=== PATIENT | male | born 1965 | race Caucasian/White ===

== ENCOUNTER 2023-07-27 15:40 | Outpatient (OUT) | payer MEDICARE, SELFPAY ==
[2023-07-27 16:54] LABS: Anion Gap 11.5; BUN Creatinine Ratio 3.9; Calcium 8.4 mg/dL (8.5-10.1); Carbon Dioxide 31.6 mmol/L (21.0-32.0); Chloride 105 mmol/L (98-107); Estimated GFR (African America >60 (>=60); Estimated GFR (Non-African Ame >60 (>=60); Glucose 114 mg/dL (74-106); Potassium 3.1 mmol/L (3.5-5.1); Sodium 145 mmol/L (136-145)
== END 2023-07-27 15:41 | disposition home or self-care (01) ==
LOC: LAB 15:42
PROVIDERS: PCP Family Medicine; Visit Provider Internal Medicine
DX: I50.20 Unspecified systolic (congestive) heart failure (principal)
CPT/HCPCS: 36415; 80048; 83880

== ENCOUNTER 2024-06-17 12:41 | Outpatient (OUT) | payer MEDICARE, SELFPAY | END 2024-06-17 12:42 | disposition home or self-care (01) | LOC: RAD 12:44 | PROVIDERS: PCP Family Medicine; Visit Provider Family Medicine | DX: I82.402 Acute embolism and thrombosis of unspecified deep veins of left lower extremity (principal); R60.0 Localized edema | CPT/HCPCS: 93971 ==

== ENCOUNTER 2024-07-26 16:05 | Emergency (ER) | payer MEDICARE, SELFPAY ==
[2024-07-26 16:10] VITALS: BP 140/86; PULSE 113; TEMP 37.1; O2SAT 97; BMI 25.0
--- OUTSIDE RECORDS SUMMARY | 2024-07-26 16:11 | XMS_ITS | CCD ---
Author Organization [facility] CliniSymi Care Team Providers Care Cds Sales Advisor Name Role Phone MARIA D FERNANDES Unavailable Unavailable HOUSE, GORAN Unavailable Unavailable DAHIANA, MARIA D Unavailable Unavailable HOUSE, GORAN Unavailable Unavailable VANESSA, NAIM Z Unavailable Unavailable VANESSA, NAIM Z Unavailable Unavailable HOUSE, GORAN Unavailable Unavailable House, Goran Kovacs Unavailable Unavailable Unavailable Unavailable Unavailable HOUSE, DR CHENG Primary Care Unavailable HOUSE, DR CHENG Admitting Unavailable HOUSE, DR CHENG Attending Unavailable HOUSE, DR CHENG Consulting Unavailable HOUSE, DR CHENG Admitting Unavailable HOUSE, DR CHENG Attending Unavailable HOUSE, DR CHENG Consulting Unavailable HOUSE, DR CHENG Primary Care Unavailable HOUSE, DR CHENG Admitting Unavailable HOUSE, DR CHENG Attending Unavailable HOUSE, DR CHENG Primary Care Unavailable CHRIS MEHTA Attending Unavailable CHRIS MEHTA Consulting Unavailable HOUSE, DR CHENG Primary Care Unavailable CHRIS MEHTA Admitting Unavailable YUMIKO HEWITT Consulting Unavailable BROOKE HAMPTON Consulting Unavailable CHRIS MEHTA Admitting Unavailable HOUSE, DR CHENG Primary Care Unavailable CHRIS MEHTA Attending Unavailable HOUSE, DR CHENG Admitting Unavailable HOUSE, DR CHENG Attending Unavailable HOUSE, DR CHENG Consulting Unavailable HOUSE, DR CHENG Primary Care Unavailable PREET, DR MAYI Elder Consulting Unavailable House, Dr. Goran Inman Primary Care Unava ilVeronica Webster Referring Unavailable Veronica Vilchis Attending Unavailable YUMIKO VILLEGAS Attending Unavailable YUMIKO VILLEGAS Referring Unavailable GORAN FOFANA Primary Care Physician [phone] MD Jostin Shah Consulting Unavailable Bob Wyman Attending UnavailBob Atkinson Referring UnavailBob Atkinson Admitting Unavaila Jostin Howe Consulting Unavailable Jostin Shah Consulting Unavailable Bob Wyman Admitting UnavailBob Atkinson Attending Unavaila Bob Parrish Referring Unavaila GORAN Gupta Referring Unavailable Bob Wyman Attending Unavaila maik REFERRAL, SELF Referring Unavailable Bob Wyman Admitting Unavaila Bob Parrish Attending Unavaila Ignacio Ramírez Admitting Unavailable Sae, Ignacio Vanegas Attending Unavailable NONE, XXXX Referring Unavailable HOUSE, GORAN P Primary Care Unavailable HOUSE, DO GORAN P Admitting Unavailable HOUSE, DO GORAN P Attending Unavailable HOUSE, DO GORAN P Attending Unavailable HOUSE, GORAN P Primary Care Unavailable HOUSE, GORAN P Primary Care Unavailable HOUSE, DO GORAN P Attending Unavailable Allergies Allergy Classification Reported Allergen(s) Allergy Type Date of Onset Reaction(s) Facility (12 sources) moxifloxacin; Translations: [Avelox TABS] Drug Allergy Eruption of skin (disorder) [facility] (3 sources) moxifloxacin; Translations: [Avelox] Drug Allergy [facility] Rep[facility] Medications Current Medications Medication Drug Class(es) Dates Sig (Normalized) Sig (Original) acetaminophen 325 mg / HYDROcodone bitartrate 5 mg oral tablet (12 sources) Opioid Agonist Start: 02-18-2019 take 1 tablet by mouth every four hours as needed for pain and pain, then take 1-2 tablets by mouth every four to six hours as needed for pain and pain [place] 325 mg-5 mg oral tablet 1 tab(s), Oral, q4hr for pain, Refill(s) 0, 1 to 2 tabs every 4 to 6 hours as needed for pain, Pain Start Date: 02/18/19 Status: Ordered take 1-2 tablets by mouth every eight hours as needed for pain HYDROcodone-Acetaminophen 5-325 MG Oral Tablet take 1-2 tablets everu 8 hours PRN pain Quantity: 0 Refills: 0 Ordered: 17-Dec-2020 DO Active [id number] actuat albuterol 0.09 mg/actuat metered dose inhaler (12 sources) beta2-Adrenergic Agonist Start: 02-18-2019 take 1 puff(s) by inhalation four times daily Pro-Air HFA CFC free 90 mcg/inh MDI 1 puff(s), Inhalation, QID Start Date: 02/18/19 Status: Ordered take 1-2 puff(s) by inhalation every four to six hours as needed ProAir HFA 108 (90 Base) MCG/ACT AERS INHALE 1-2 PUFFS EVERY 4-6 HOURS NEEDED AND DIRECTED. Quantity: 0 Refills: 0 Ordered: 17-Dec-2020 DO Active aspirin 81 mg oral tablet (16 sources) Platelet Aggregation Inhibitor, Nonsteroidal Anti-inflammatory Drug Start: 02-18-2019 take 1 tablet by mouth once daily aspirin 81 mg oral tablet 81 mg = 1 tab(s), Oral, Daily Start Date: 02/18/19 Status: Ordered Aspir-Low 81 MG TBEC Quantity: 0 Refills: 0 Ordered: 17-Dec-2020 DO Active atorvastatin 40 mg oral tablet (12 sources) HMG-CoA Reductase Inhibitor Start: 02-18-2019 take 1 tablet by mouth once daily atorvastatin 40 mg Tab 40 mg = 1 tab(s), Oral, Daily Start Date: 02/18/19 Status: Ordered take 1 tablet by mouth once veronica y Atorvastatin Calcium 80 MG Oral Tablet TAKE 1 TABLET DAILY. Quantity: 90 Refills: 3 Ordered: 24-Apr-2022 Veronica Vilchis MD Active clopidogrel 75 mg oral tablet (11 sources) P2Y12 Platelet Inhibitor Start: 07-27-2023 take 1 tablet by mouth once daily clopidogrel 75 mg Tab 75 mg = 1 tab(s), Oral, Daily, # 30 tab(s), Refills(s) 0 Start Date: 07/27/23 Status: Ordered Start: 12-22-2020 take 1 tablet by caitlin once daily Clopidogrel Bisulfate 75 MG Oral Tablet TAKE 1 TABLET EVERY DAY Quantity: 90 Refills: 3 Ordered: 24-Apr-2022 Veronica Vilchis MD Start : 22-Dec-2020 Active ferrous sulfate 325 mg oral tablet (6 sources) Start: 07-27-2023 take 1 tablet by mouth twice daily ferrous sulfate 325 mg Tab 325 mg = 1 tab(s), Oral, BID, # 60 tab(s), Refills(s) 0 Start Date: 07/27/23 Status: Ordered take 1 tablet by mouth once veronica y Ferrous Sulfate 324 MG Oral Tablet Delayed Release Take 1 tablet daily Quantity: 0 Refills: 0 Ordered: 24-Apr-2022 DO Active folic acid 1 mg oral tablet (6 sources) Start: 07-27-2023 take 1 tablet by mouth once daily folic acid 1 mg Tab TAKE 1 TABLET BY MOUTH EVERY DAY Start Date: 07/27/23 Status: Ordered take 1 tablet by mouth once veronica y Folic Acid 1 MG Oral Tablet TAKE 1 TABLET DAILY. Quantity: 0 Refills: 0 Ordered: 24-Apr-2022 DO Active gabapentin 300 mg oral capsule (4 sources) Anti-epileptic Agent Start: 02-18-2019 take 1 capsule by mouth twice daily gabapentin 300 mg Cap 300 mg = 1 cap(s), Oral, BID Start Date: 02/18/19 Status: Ordered memantine hydrochloride 5 mg oral tablet (6 sources) D-txeogm-P-aspartate Receptor Antagonist Start: 07-27-2023 take 5 mg by mouth twice daily Namenda 5 mg, Oral, BID, Refills(s) 0 Start Date: 07/27/23 Status: Ordered take 1 tablet by mouth once veronica y Namenda 5 MG Oral Tablet TAKE 1 TABLET ONCE DAILY. Quantity: 0 Refills: 0 Ordered: 24-Apr-2022 DO Active 24 hr metoprolol succinate 25 mg extended release oral tablet (4 sources) beta-Adrenergic Carolyn Start: 02-18-2019 take 1 tablet by mouth once daily metoprolol 25 mg ER Tab 25 mg = 1 tab(s), Oral, Daily, Refills(s) 0 Start Date: 02/18/19 Status: Ordered Nitro 0.4 mg Tab (4 sources) Start: 02-18-2019 Nitro 0.4 mg Tab = 1 tab(s), SubLingual, q5min, PRN Chest pain Start Date: 02/18/19 Status: Ordered PARoxetine hydrochloride 20 mg oral tablet (10 sources) Serotonin Reuptake Inhibitor Start: 02-18-2019 take 1 tablet by mouth once daily paroxetine 20 mg Tab 20 mg = 1 tab(s), Oral, Daily Start Date: 02/18/19 Status: Ordered QUEtiapine 100 mg oral tablet (12 sources) Atypical Antipsychotic Start: 02-18-2019 take 1 tablet by mouth once daily SEROquel 100 mg Tab 100 mg = 1 tab(s), Oral, Daily Start Date: 02/18/19 Status: Ordered Vitamin B1 100 mg Tab (4 sources) Start: 07-27-2023 take 2 tablets by mouth twice daily Vitamin B1 100 mg Tab TAKE 2 TABLETS BY MOUTH TWICE A DAY Start Date: 07/27/23 Status: Ordered Completed/Discontinued Medications Medication Drug Class(es) Dates Sig (Normalized) Sig (Original) carvedilol 6.25 mg oral tablet (6 sources) alpha-Adrenergic Carolyn, beta-Adrenergic Carolyn Start: 11-29-2020 take 1 tablet by mouth twice daily at mealtime Carvedilol 6.25 MG Oral Tablet TAKE 1 TABLET BY MOUTH TWICE A DAY WITH MEALS Quantity: 180 Refills: 3 Ordered: 29-Nov-2020 Maria D Fernandes DO Start : 29-Nov-2020 Active [facility]S VITAMIN C 500 MG TABLET (4 sources) Start: 07-27-2023 take 1 tablet by mouth twice daily CVS VITAMIN C 500 MG TABLET CVS VITAMIN C 500 MG TABLET, TAKE 1 TABLET BY MOUTH TWICE A DAY Start Date: 07/27/23 Status: Ordered levothyroxine (12 sources) l-Thyroxine Start: 02-18-2019 take 1 tablet by mouth once daily Synthroid 75 mcg (0.075 mg) Tab 75 microgram = 1 tab(s), Oral, Daily Start Date: 02/18/19 Status: Ordered take 1 tablet by mouth once veronica y Synthroid 75 MCG Oral Tablet TAKE 1 TABLET DAILY. Quantity: 0 Refills: 0 Ordered: 17-Dec-2020 DO Active losartan potassium 25 mg oral tablet (8 sources) Angiotensin 2 Receptor Carolyn Start: 12-22-2020 take 0.5 tablet by mouth once daily Losartan Potassium 25 MG Oral Tablet TAKE 1/2 TABLET DAILY. Quantity: 15 Refills: 11 Ordered: 24-Dec-2020 Maria D Fernandes DO Start : 22-Dec-2020 Active new start nitroglycerin 0.4 mg sublingual tablet (8 sources) Nitrate Vasodilator Nitroglycerin 0.4 MG Sublingual Tablet Sublingual PLACE 1 TABLET UNDER THE TONGUE EVERY 5 MINUTES FOR UP TO 3 DOSES NEEDED FOR CHEST PAIN.CALL 911 IF PAIN PERSISTS. Quantity: 0 Refills: 0 Ordered: 17-Dec-2020 DO Active pantoprazole 40 mg delayed release oral tablet (2 sources) Proton Pump Inhibitor take 1 tablet by mouth once daily Protonix 40 MG Oral Tablet Delayed Release TAKE 1 TABLET DAILY. Quantity: 0 Refills: 0 Ordered: 24-Apr-2022 DO Active potassium chloride 20 meq extended release oral tablet (1 source) Start: 09-06-2023 take 1 tablet by mouth once daily potassium chloride 20 mEq ER Tab 20 mEq = 1 tab(s), Oral, Daily, # 90 tab(s), Refills(s) 0, Pharmacy: [facility]/pharmacy #[id number], 178, cm, 09/06/23 13:16:00 EDT, Height/Length Dosing, 81.2, kg, 09/06/23 13:16:00 EDT, Weight Dosing Start Date: 09/06/23 Status: Ordered predniSONE 5 mg oral tablet (2 sources) predniSONE 5 MG Oral Tablet TAKE 1 TABLET DIRECTED. Quantity: 0 Refills: 0 Ordered: 24-Apr-2022 DO Active thiamine 100 mg oral tablet (6 sources) take 1 tablet by mouth once daily Thiamine HCl - 100 MG Oral Tablet TAKE 1 TABLET DAILY. Quantity: 0 Refills: 0 Ordered: 17-Dec-2020 DO Active Problems Active Problems Problem Classification Problem Date Documented Date Episodic/Chronic Chronic obstructive pulmonary disease and bronchiectasis (8 sources) Chronic obstructive lung disease; Translations: [Chronic airway obstruction, not elsewhere classified] Chronic Chronic obstructive pulmonary disease and bronchiectasis (1 source) Chronic obstructive pulmonary disease and bronchiectasis Onset: 04-26-2017 Coronary atherosclerosis and other heart disease (18 sources) Atherosclerotic heart disease of [place] coronary artery without angina pectoris; Translations: [Coronary arteriosclerosis] Onset: 04-19-2017 Chronic Coronary atherosclerosis and other heart disease (8 sources) Stented coronary artery; Translations: [Percutaneous transluminal coronary angioplasty status] Episodic Coronary atherosclerosis and other heart disease (1 source) Coronary atherosclerosis and other heart disease Onset: 04-26-2017 Disorders of lipid metabolism (8 sources) Dyslipidemia; Translations: [Other and unspecified hyperlipidemia] Chronic E Codes: Fall (1 source) Fall (on) (from) unspecified stairs and steps, initial encounter; Translations: [FALL ON FROM UNS STAIRS STEPS INIT] Onset: 12-13-2021 Episodic Essential hypertension (8 sources) Essential hypertension; Translations: [Unspecified essential hypertension] Chronic Essential hypertension (1 source) Essential hypertension Onset: 04-26-2017 Fluid and electrolyte disorders (1 source) Hypokalemia; Translations: [Hypokalemia] Onset: 09-06-2023 Episodic Fracture of upper limb (1 source) Displaced fracture of proximal phalanx of left middle finger, initial encounter for closed fracture; Translations: [DSPL FX PROX PHAL LT MF INIT ALEJANDRO FX] Onset: 12-13-2021 Episodic Inflammatory conditions of male genital organs (4 sources) Abscess of scrotum 02-18-2019 Episodic Osteoarthritis (1 source) Unspecified osteoarthritis, unspecified site; Translations: [UNSPECIFIED OSTEOARTHRITIS UNS SITE] Onset: 12-19-2020 Chronic Other aftercare (1 source) 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; Translations: [USP CURRENT USE OF ASPIRIN] Onset: 12-13-2021 Episodic Other aftercare (1 source) Other senior living (current) drug therapy; Translations: [OTH USP CURRENT DRUG THERAPY] Onset: 12-13-2021 Episodic Other circulatory disease (8 sources) History of cardiomyopathy; Translations: [Other postprocedural status] Episodic Other connective tissue disease (3 sources) Pain in left hand; Translations: [PAIN IN LEFT HAND] Onset: 12-11-2021 Episodic Other endocrine disorders (4 sources) Unspecified adrenocortical insufficiency; Translations: [UNS ADRENOCORTICAL INSUFFICIENCY] Onset: 01-25-2021 Chronic Other lower respiratory disease (8 sources) Dyspnea on exertion; Translations: [Shortness of breath] Episodic Other nutritional; endocrine; and metabolic disorders (2 sources) Overweight in adulthood with body mass index of 25 or more but less than 30; Translations: [Overweight] Episodic Other screening for suspected conditions (not mental disorders or infectious disease) (9 sources) Abnormal result of other cardiovascular function study; Translations: [Cardiovascular stress test abnormal] Onset: 04-26-2017 Episodic Residual codes; unclassified (4 sources) Tobacco user 02-18-2019 Episodic Skin and subcutaneous tissue infections (4 sources) Abscess of groin 02-18-2019 Episodic Substance-related disorders (9 sources) Smoker; Translations: [Tobacco use disorder] Onset: 12-13-2021 Chronic Unclassified (1 source) Body mass index (BMI) 25.0-25.9, adult / Z68.25(ICD-9) Onset: 04-26-2017 Unclassified (2 sources) Athscl heart disease of [place] coronary artery w/o ang pctrs / I25.10(ICD-9) Onset: 04-19-2017 Unclassified (1 source) Coronary angioplasty status / Z98.61(ICD-9) Onset: 04-19-2017 Unclassified (1 source) Nicotine dependence, unspecified, uncomplicated / F17.200(ICD-9) Onset: 04-26-2017 Unclassified (2 sources) Abnormal result of other cardiovascular function study / R94.39(ICD-9) Onset: 04-23-2017 Unclassified (1 source) Overweight / E66.3(ICD-9) Onset: 04-26-2017 Unclassified (1 source) Pure hypercholesterolemia, unspecified / E78.00(ICD-9) Onset: 04-19-2017 Unclassified (1 source) Presence of coronary angioplasty implant and graft / Z95.5(ICD-9) Onset: 04-26-2017 Unclassified (1 source) 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 / Z79.82(ICD-9) Onset: 04-26-2017 Unclassified (1 source) Old myocardial infarction / I25.2(ICD-9) Onset: 04-26-2017 Unclassified (2 sources) Other forms of dyspnea / R06.09(ICD-9) Onset: 04-23-2017 Past or Other Problems Problem Classification Problem Date Documented Da te Episodic/Chronic Abdominal pain (4 sources) Unspecified abdominal pain; Translations: [UNSPECIFIED ABDOMINAL PAIN] Onset: 01-05-2021 Episodic Malaise and fatigue (4 sources) Other fatigue; Translations: [OTHER FATIGUE] Onset: 12-14-2020 Episodic Nausea and vomiting (1 source) Vomiting, unspecified; Translations: [VOMITING UNSPECIFIED] Onset: 01-15-2021 Episodic Residual codes; unclassified (4 sources) Procedure and treatment not carried out due to patient leaving prior to being seen by health care provider; Translations: [PROC AND TX NOT CARRIED OUT PT LEAVE] Onset: 12-30-2020 Episodic Unclassified (1 source) Other forms of dyspnea; Translations: [Other forms of dyspnea] Onset: 04-26-2017 Results Test Name Value Interpretation Reference Range Facility Rad - Ultrasound Reporton Rad - Ultrasound Report [id number] [facility] Consultation/Specialist Note on 09-11-2023 Consultation/Special ist Note [id number] [facility] Consultation/Special ist Note [id number] [facility]GTIFF Normal [facility] Heart and Vascular Office/Cl inic Noteon 09-08-2023 Heart and Vascular Office/Clinic Note Heart and Vascular Office/Clinic Note Chief Complaint new patient new referred for Hc of angio History of Present Illness Lemuel Rhodes presents for evaluation of left ankle swelling. He is accompanied by an adult female. The patient, a cardiac patient with a history of stent placement, presents with. His most recent consultation was a year ago at [facility]. Only his left ankle is swelling, and it becomes noticeable after prolonged periods of standing. He denies any injury to the ankle, although he recalls an incident approximately 40 years ago where he struck his ankle with an axe. He denies any (different laterality?) calf pain. His most recent stress test and echocardiogram were conducted in 2021 or 2022 at [facility]. (Dr. Fofnaa?) has ordered additional cardiac and lab tests. The patient, who has previously undergone stent implantation due to heart issues, is experiencing left ankle edema. This edema tends to become more pronounced after extended durations of being on his feet. Despite the ankle edema, he reports no injuries to the area, except for a memory of an accident about 40 years ago when he accidentally hit his ankle with an axe. He denies any (different laterality?) calf pain. His last stress test and echocardiogram examinations took place between 2021 and 2022 at [facility]. Following this, (Dr. Fofana?) has requested further cardiac and laboratory assessments. He is uncertain about having liver cirrhosis. He consumes roughly 10 alcoholic beverages each day. He notes tobacco use. Review of Systems PHQ Score Initial Depression Screen Score: 0 SCORE Constitutional: no fever, no sweats, no weakness Skin: no rash, no lesions, no bruising/petechiae ENMT: no sore throat, no congestion, no hoarseness Respiratory: no shortness of breath, no cough, no orthopnea, no wheezing Cardiovascular: no chest pain, no palpitations, no edema Gastrointestinal: no nausea, no vomiting, no diarrhea, no GI bleeding Genitourinary: no anuria/oliguria no hematuria Musculoskeletal: no back pain, no trauma Neurologic: no headache, no dizziness, no numbness, no weakness Psychiatric: no sleeping problems, no irritability, no anxiety/depression. Heme/Lymph: no bleeding tendency, no bruising tendency Allergy/Immunologic: no recurrent infections, no impaired immunity Additional ROS info: Except as noted in the above Review of Systems and in the History of Present Illness all other systems have been reviewed and are negative or noncontributory Physical Exam Vitals & Measurements HR: 94(Peripheral) BP: 132/86 SpO2: 91% HT: 70 in HT: 178 cm WT: 82.2 kg WT: 180.84 lb BMI: 25.94 General: alert, no acute distress Skin: warm, dry intact Head: atraumatic, normocephalic Neck: trachea midline, no JVD, no bruit Eye: normal conjunctiva, sclera clear ENMT: oral mucosa moist Cardiovascular: regular rate and rhythm, no murmur, normal peripheral perfusion Respiratory: lungs CTA, respirations non labored Chest wall: no deformity. Gastrointestinal: soft, non-distended, no tenderness, no guarding. Back: no tenderness, normal ROM, normal alignment. Extremities: no edema, no deformity, no trauma Neurological: oriented x 4, LOC appropriate for age, sensation equal & normal bilaterally, speech normal Psychiatric: cooperative, affect appropriate for age, normal judgement, normal psychiatric thoughts. Assessment/Plan Shortness of breath (R06.02: Shortness of breath) Edema in the left ankle. A chemical stress test, laboratory, and EKG were ordered, along with a BNP test. Additionally, an ultrasound of the leg will be performed. The patient has been advised to reduce his alcohol consumption. His laboratory shows liver cirrhosis. Follow-up The patient is scheduled for a follow-up visit in 6 weeks. ATTESTATION: Documentation services were performed after patient or guardian consented to allow [employer] to record this visit. 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 LIOR: Albert Agsam/pasted by: Obey Correia Portions of this record may have been created with voice recognition artificial intelligence software, specifically [employer], [employer] and or [employer]. Substitutions may have occurred due to the inherent limitations of voice recognition and artificial intelligence software. Follow-up No qualifying data available Problem List/Past Medical History Ongoing Abscess of left groin Scrotal wall abscess Tobacco abuse Historical No qualifying data Procedure/Surgical History Bilateral carpal tunnel syndrome, Cardiac catheter, Hip replacement. Medications aspirin 81 mg oral tablet, 81 mg= 1 tab(s), Oral, Daily atorvastatin 40 mg Tab, 40 mg= 1 tab(s), Oral, Daily clopidogrel 75 mg Tab, 75 mg= 1 tab(s), Oral, Daily CVS VITAMIN C 500 MG TABLET ferrous sulfate 325 mg Tab, 325 mg= 1 tab(s), Oral, BID folic acid 1 mg Tab gabapentin 300 mg C (more content not included)... Normal [facility] Comment on above: Result Comment: Elec tronically Signed By: Garo LOMAX, Bob Norris\.br\Date and Time Signed: 09/08/23 10:03 EDT\.br\Electronically Co-Signed By: Obey Correia\.br\Date and Time Co-Signed: 07/27/23 17:06 EDT Heart and Vascular Office/Cl inic Noteon 09-06-2023 Heart and Vascular Office/Clinic Note Heart and Vascular Office/Clinic Note Chief Complaint 6 week F/U History of Present Illness Lemuel is a 58 year old male with past medical hx of SOB and lower leg edema, prior PCI, [place]. Pt is in for 6 week fu and for test results. Pt had lab work done at [place] which showed decreased potassium at 3.1 despite the use of a diuretic, so he should start on potassium chloride for the time being to bring that number up within range. All other labs were normal including BNP. Venous US was negative for DVT for the left leg. Echo was also negative with an EF of 65-70% and a stress test that was negative for ischemia or infarction. Overall pt is doing well at this time. Pt still experiences some lower leg edema intermittently which usually occurs around mid day to evening but negative for anginal symptoms at this time. Pt is able to dc Plavix at this time due to being s/p over 1 year PCI. Pt should continue his other medications aspirin 81 mg qD, atorvastatin 40 mg qD, metoprolol 25 mg qD at this time. Patient specifically denies chest pain, palpitations, SOB at rest, KRISHNAMURTHY, orthopnea, PND, dizziness, near syncope, or syncope. NOTE FROM 07/27/23 The patient, who has previously undergone stent implantation due to heart issues, is experiencing left ankle edema. This edema tends to become more pronounced after extended durations of being on his feet. Despite the ankle edema, he reports no injuries to the area, except for a memory of an accident about 40 years ago when he accidentally hit his ankle with an axe. He denies any (different laterality?) calf pain. His last stress test and echocardiogram examinations took place between 2021 and 2022 at [facility]. Following this, (Dr. Fofana?) has requested further cardiac and laboratory assessments. Review of Systems PHQ Score Initial Depression Screen Score: 0 SCORE ROS - Provider Constitutional: no fever, no chills, no sweats, no weakness Respiratory: no shortness of breath, no cough Cardiovascular: no chest pain Neuro: no dizziness. no loss of consciousness Cardiac Diagnostics (08/24/2023 15:38 EDT NM Myocardial Spect Rest/Stress 1 Day) Interpretation Summary Negative lexiscan stress EKG test. Rest Dose: 9.4 mCi IV. Stress Dose: 28.9 mCi IV. TID 0.98 EF 73% EDV 80ml Negative nuclear stress test for ischemia or infarction. Overall low risk stress test. (08/27/2023 13:54 EDT Echo Transthoracic Complete) Interpretation Summary Left ventricular systolic function is normal. Ejection Fraction = 65-70%. Left Ventricular filling pattern is abnormal for age. No obvious regional wall motion abnormalities noted There is no pericardial effusion. [1] (08/27/2023 12:37 EDT US LE Venous Duplex Left) IMPRESSION: NO EVIDENCE OF VENOUS THROMBOSIS INVOLVING VISUALIZED DEEP VEINS OF THE LEFT LEG. [2] Physical Exam Vitals & Measurements HR: 110(Peripheral) RR: 18 BP: 120/82 SpO2: 94% HT: 70 in HT: 178 cm WT: 81.2 kg WT: 178.64 lb BMI: 25.63 General: alert, no acute distress Cardiovascular: regular rate and rhythm, no murmur normal peripheral perfusion Respiratory: Lungs CTAB, respirations non labored Extremities: Trace edema left lower extremity. Trace edema right lower extremity Neurological: oriented x 4, LOC appropriate for age, speech normal Skin: Warm, dry, intact- no rash or concerning lesions Assessment/Plan 1. Hypokalemia (E87.6: Hypokalemia) Pt lab work revealed decreased potassium at 3.1. Pt should start potassium chloride qD for 90 days. 2. CAD in [place] artery (I25.10: Atherosclerotic heart disease of [place] coronary artery without angina pectoris) Echo was also negative with an EF of 65-70% and a stress test that was negative for ischemia or infarction. Pt can dc Plvix due to s/p over 1 year from his last stent. Pt should continue his current medications aspirin 81 mg qD, atorvastatin 40 mg qD, metoprolol 25 mg qD Patient will return to clinic in 6 months for regular follow up appointment with me. Patient will call office for sooner appointment for acute concerns. IYamile, personally scribed for Ignacio Quevedo PA-C on 09/06/23 Follow-up No qualifying data available Problem List/Past Medical History Ongoing Abscess of left groin Scrotal wall abscess Tobacco abuse Historical No qualifying data Procedure/Surgical History Bilateral carpal tunnel syndrome, Cardiac catheter, Hip replacement. Medications aspirin 81 mg oral tablet, 81 mg= 1 tab(s), Oral, Daily atorvastatin 40 mg Tab, 40 mg= 1 tab(s), Oral, Daily clopidogrel 75 mg Tab, 75 mg= 1 tab(s), Oral, Daily CVS VITAMIN C 500 MG TABLET ferrous sulfate 325 mg Tab, 325 mg= 1 tab(s), Oral, BID folic acid 1 mg Tab gabapentin 300 mg Cap, 300 mg= 1 cap(s), Oral, BID metoprolol 25 mg ER Tab, 25 mg= 1 tab(s), Oral, Daily Namenda, 5 mg, Oral, BID Nitro 0.4 mg Tab, 1 tab(s), SubLingual, q5min, PRN [place] 325 mg-5 mg oral tablet, 1 tab(s), Oral, q4hr, PRN paroxetine 20 mg (more content not included)... Normal [facility] Comment on above: Result Comment: Elec tronically Signed By: Ignacio Quevedo PA-C\.br\Date and Time Signed: 09/06/23 14:36 EDT\.br\Electronically Co-Signed By: Yamile Dean\.br\Date and Time Co-Signed: 09/06/23 13:37 EDT Outside Recordson 09-03-2023 Outside Records [id number]#[id number] TGTIFF [facility] Rad - Other Radiology Report on 09-03-2023 Rad - Other Radiology Report [id number]#[id number] TGTIFF [facility] Echocardiogramon 08-31-2023 Echocardiography [id number]#[id number]/Str ess 1 Dayon 08-31-2023 NM Myocardial Spect Rest/Stress 1 Day Exam Date/Time: 08/24/2023 15:38 EDT Reason for Exam: I25.10;CAD Coronary artery disease Report [facility] [address] [place] [address] Nuclear Stress Report Name: LEMUEL RHODES Study Date: 08/24/2023 02:01 PM Patient [facility] 1965 (M/d/yyyy) Gender: Male Age: 58 yrs Ethnicity: T Reason For Study: CAD Coronary artery disease Ordering Physician: Bob Wyman Referring Physician: Bob Wyman Protocol 22255 Pharmacologic Lexiscan stress with Isotope. Study Protocol: One day rest/stress acquisition. Rest Dose Tc99m Cardiolite was administered. Rest Dose: 9.4 mCi IV. Stress Dose Stress Protocol: Lexiscan. Stress Dose: 28.9 mCi IV. Stress Parameters Normal blood pressure response. Stress Symptoms: None. ECG Rest Abnormal ECG. Normal Sinus Rhythm with non specific ST-T wave changes. Poor R wave progression. ECG Peak No significant changes from baseline. No ST-T wave changes from baseline. Arrhythmia No arrhythmias. Image Quality Rest Images: Diagnostic in quality. Stress Images: Diagnostic in quality. SPECT Perfusion Normal rest and stress perfusion. Left Ventricle Normal global and regional wall motion in all territories. Report Interpretation Summary Negative lexiscan stress EKG test. Rest Dose: 9.4 mCi IV. Stress Dose: 28.9 mCi IV. TID 0.98 EF 73% EDV 80ml Negative nuclear stress test for ischemia or infarction. Overall low risk stress test. FINAL REPORT Dictated: 08/24/2023 2:01 pm Bob Wyman MD Signed (Electronic Signature): 08/31/2023 1:47 pm Signed by: Bob Wyman MD Transcribed by: [facility] Technologist: BLANCO [facility] US LE Venous Duplex Lefton 0 08-29-2023 US LE Venous Duplex Left Exam Date/Time: 08/27/2023 12:37 EDT Reason for Exam: R60.0;Edema Report IMPRESSION: NO EVIDENCE OF VENOUS THROMBOSIS INVOLVING VISUALIZED DEEP VEINS OF THE LEFT LEG. CLINICAL HISTORY: Edema, R60.0. Left leg swelling. COMMENT: On the left, the external iliac vein, greater saphenous vein, common femoral vein, deep femoral vein, femoral vein, and popliteal vein demonstrate spontaneous phasic venous flow, with augmentation, non-pulsatility, and compressibility every 2 cm. The left posterior tibial and peroneal veins of the deep venous system compress. The contralateral right common femoral vein demonstrates spontaneous phasic venous flow. Ordering Provider: Bob Wyman FINAL REPORT Dictated: 08/29/2023 3:01 pm Jc Mackay M.D. Signed (Electronic Signature): 08/29/2023 3:01 pm Signed by: Jc Mackay M.D. Transcribed by: [facility] Technologist: ERINN [facility] Coding Summary.on 08-07-2023 Coding Summary. JALEYndk98JCh7jAz+PG hlY WQ+RB3PYUTjM71omJGetK1g Q4BYWYvBIjocLHEMCFkZNtC tutRwWT8zoZMrDUNq IC8+YO1gPNNnNrnwwUOzp3J 9uNW8W60myd7kJVwayJE1HT SnXtBaxlgus0dgaIq6YCiiB mluOyBt GNGvgV79UNJ7vG91Fl21fZU shZWrs2wnpGh1EgAjGAIwIT W7aUuzANyea4GiCFPnE32to FRiy6L5 PJMkwFckhMGyYqNihFD9oV3 tQTprmfhuv1kardtiNem5he 69rKSpl7J3lVC3L8GhpeG7I GJvbGQg WuzpeYEFoC0rukict5vknsw uTjCfEIXjQTm0IKa4QYWjtV sfCeJnIK36BLI2CBKmxkFzH 2FsLWFs gHvqCgD4u0Q4Uj2BC2NVEdj rW4LTLELJUTfipVF+PC90cj 17W2CfBaeiQoh2TBPoXZJ4f UG6mO3r SWPoPBziv2N8jWF3Z5UlytC yne9hb3hiWWXzBGgdZ83kfJ Cov9D9PFNkcTQ5TAZlsUzjU iBzaG93 Oyc+CFXywBpaz0IbSljhr4j xp4klnTh1OnmuWKWqhvSsqP laZBQ3d2ZbNa7qXGJfjHD3k NS6rQ1j JfNvSsP4DEmnA006QuGhfNZ wLdeeO32eH8KexDE+PHRyPj q1DXWadJutJC4qN4PxVTRzq mctbGVm nEttVE4bBUKdnfrtYPMkhE3 aHQGaF3m1NdYsKhV2XNhfV3 TeULSuvepoLq34wS5jPlSpC cH7OKkj P0LgrgL1UNIjhOYtOJriUIL 1O61id7W0DJWxYZOwAXS1qB Q7tX1wgKegtqssmZEyzDlow mVydGlj KNajWAyaG181RMKbgSgsLcU vZGluZyBEYXRlOiAgMDYvMj UvMjAyNDwvdGQ+GMKjYWU1y WxlPSAn mBPuCXslGo5wpOqxpPjzHU4 rMIUdtfoqJCAhuA5iZGUxmO KeiExdZT3pJPBxydlsz960K iAxMHB0 FHEmmDQqJ0DrpX9aHnThEYB mWTPmZ8CgrWGcTSnoK375UF uyBdZ4QSBmzjCtC8BqIQYpx WduOiB0 s4Q0Mt3Br8WitwvqY3HhoHH dQqEcTvssNUz0L2QaDxswaF I+LK18GUAwTF59TWi5TAH4x WxlPSdi OQLtM8MtlO9aVcPkISAcREX kOyc+PHRhYmxlIHdpZHRoPS aaYVVvApViqGenKF8tZs5lZ GVyLWNv ePnrrLSnHtCeh6hdLBLeEQv wEZ4lgElfC5UvuHU8GIBqw2 i6Nk92I43bI8MhhWB+PGNvb SS8gCL7 kB1cOcLcKuZ8QFwqE431ZaG maYSbJaxdr2xlu0zuoAw2Al E9EYAtucHxmFakELF3f0LhK h64H11u IHdpZHRoPSIxNSUiIHZhbGl ngx9kvU8jOl5+BHUkjKP4qO F8rF8eIvIaIaX8OFjmK711Y nRvcCIv Bdubl5wze6xntWd2GlHpQTQ cqoBncXskSEE7p2EjOt97D4 AzuSlxp9QxGvm3iq00oXBsr 0P6fBJ8 J1JzDVBeivofvRRzoFzrXM9 eYNMbtwvuVADpqO4zKXWrL1 h1DjXvMrY9SOpkN1DeceZ5T GJvbGQg THIloNQXmC7sbpmej4fwnbz fVcHoPMLdZAe6TVv1QPBwhM erEuQxKBT5CuR5YEO7vXAvv O7rlAow jnlkoC5tIpb+YWY5rSQloGT WWO7qTnfdtSY+SUGuRDK1yA djPNbjKOVkfD9hEWNeW1r1Y iAwLjA1 OVmwK6KayjZ7DKJrhLDmYRV ueSMTiK6kftlhw0fjawwxBo ZpOGFcSFz9BVr5YBAadZygV iBsZWZ0 PoN2MAI9hQLgdY0ebFqtiwj rcB1xYcj+YdyprYltIAX9JB f3W3LmBkj3HFNygQapKB0dl GFkZGlu Ot4fhInzlYaaFY0hEFOkbom vh305XrWyk5htKIAvxVYaLM kdBGD2H46ee6F4UUHnHRMrT CC7yBE9 xR7otSoxlwxxzPKttAabqhQ fkUsfJXaoFMxqU149ABLlaO tzEiQnANl3B4KpFic8LMAcw BqaWM6h mIXvJAncAm8bvXpmjUfcWP4 gEZBwzvcxg405GlNkv5erTR WivTScCSrrIKY5N59au9K0Y CMwMDAw WAV4mVO7yJ6cxSxwqsdccAX mdDsgdmVydGljYWwtYWxpZ2 11HIAznKjoQwOmrUl7V5EvO fj8TOTa qQwjVH7xeRQtHWsrPx7cvZn ojDguQC0xPDRprttpg582Ef Vpw7hhIPJahGCvDYkeETN9A 37od5R5 OENhEBQeIRI4lYN4gK3jjEm nbjogbGVmdDsgdmVydGljYW mfGGbrQ192FZXtsIuqCrHkx GllbnQg GJkgLEn2O8QuBkubhYM+PC9 5ORTcIJ33uGFogFEjz7jckL s0GgRkPGLlIPB0sSmjMSjut 3JkZXIt J38cwUXsl0F9TTNbuXfpgGK kRyTclUU4dP6fWKojzzlhp3 bgftlgUrupi7ulwo72gG33M 29sIHdp ZHRoPSIzMCUiIHZhbGlnbj0 rhN8hAq4+HXYgzVQ5jDJ0zX 3kYXZbCbZ9HRboL040WrBgs CIvPjxj z9ucb6ftmMc9OhX3GZPrseJ jaKtmIZA8w8AyTl39O09kMH dpZHRoPSIyMCUiIHZhbGlnb e2fkX6y Ii8+LXLddGC4uYU8wV1iGsE vEzC5NRdjM968JiWinJXzHz moH45bH9TfrEC+TDWiCvn1K CBzdHls LR3vwLAyNCidTn4kHWE3EhF lJiPjLWejX4NlLZFpwlngph lyiWY8ETQnEXXwrC02Zr0gn DogMTBw nLAXfS4kdbkub7dykyfyLoJ aCSBkNWk8MUe0ZIHiaYjgWj LzLPV2ChO1VIO0xUWthB5lt Glnbjog jI7iV1ZzWLTwhdjsAx20rB6 gTnDyCpY5OYoqPkj+QkVBTi wgTExPWUQgRTwvdGQ+PHRkI YD5lXgu FYokLFMeiK7aBRKsU5h2BuY gJyE8NSabA6OfLTJfhjwpMe 31kU7gQoVoZwK3MNqkX0Xav cI4UHBr uCIuUVpoGCR5L25yh6B1BIS ySMEwYPC1bIQ4sL5mtJltlw ogbGVmdDsgdmVydGljYWwtY KlwD477 ZWLbxJhaQvL6DxX0PwH5Pbv 6J5JoIpj9OCBezClhXD7pdD GwFQloZd0crEcuyDkdLT7rU TBpbjtw WAFdgG2aOBZvwNBeyYpsQS0 uMSBsnwaov617WhEgPXN6LH RzsJLdU8ZaqU1zLiUpYBRnM LIjZ7Hk iGAvMKzhA700XPdkYkV7NEQ iyrHxN4NeDNWbnOxdHxJ1g3 S9Ba03PxYLOIGewuiouFX+P HRkIHN0 uUruUVdjAOItiZ3zLDGuL9k 5IxNtFnJ0FXqcJ9EqLXGmzi vbNo01bD0hImQsYaO5QTqlH 2AyofU9 HTTohLHtNIfaFHR2T85ms5K 5LCStTUYoHKU3uAF0cV7bsD lnbjogbGVmdDsgdmVydGljY WwtYWxp R970QSFqtVamKd4ewPF2H7P lDzn4TSJwvZcnBX5npKWrGV knTg9buAcmiSzrNC6kZKVsp jtwYWRk kG1aEZZvrMXdwPnwJM1vFQQ klivkg035UlXxZDD5OCDreL TbB4ElzO2zPfVpYRUiYHXvP 3RleHQt SJkhC546FTqvTiY9RLLbkvJ sB1ZtDIIleVdzQiS3s5C3Fp 4VwVZsPDRrVC21MQ31CW32G 3RyPjwv dGFibGU+PHRhYmxlIHdpZHR hFZecCUAkReZivSamGG8vMt 9yZGVyLWNvbGxhcHNlOiBjb 2xsYXBz SLctRM6knHbpF0GbtLS7RPX eq3w1Zx72G18mH6UusLK+PG MsdQG0nWW5sW6nLuVmBkU2B QduH412 HoYnnIIzQfpuu1isx6xlpWr 7RzQsKPQykyAxyVigXWL2w4 KiMt74N45fWWogNYLbAOXiY CUiIHZh iDsgev0pfN3ePx3+PGNvbCB 2uDA5gI4mHvQsTxL2OEmmA7 59NaKndTChLjufF01uI8Xka XA+PHRy Dvi0OFEjnGfmNO0dwBPuESt aKp0jQUI5BmEyUrTyUWmaC9 SrKUDbzdrwoborsMI8JPOoK DUwaW47 Gq6bmNslCr8wCWXaGQY4RXR bgPEqD1VreT5dZsQgJJObPR ZyC7BgaFYaUHitX921DSfbL qH1OTDu iyRlF5GpRTXgjCgdPqW3e3S 8Jk8TkMpwkYPqQM1qQtMwNY a2N9RtOfy8CEJpcPebFZ1nd GFkZGlu Jj0liVonoYggFB3bKLGwgrr pi151LiTjr1xxBCEgfIBhVA vrAYF5S00xp1V1DBAlEEJuR JD5aML3 mJ6huNncvtstnQJinKjitiB vjYdaTPewVEgiR044PPPfhR bdBuIOKut0P7IpDrr5JDCbl ZduLH0o pKFjCKeiNg0adDnlyXayIR5 zINTvzbkgv858WzTsj0ckDI FdbSQtZZkfXNZ1F62ug9H3J CMwMDAw LWF5qCN2cM1qaGznlwpfjJT mdDsgdmVydGljYWwtYWxpZ2 65AAPdxUxiGp3LRdh0G4IxK hf2ATGl eZgnGT6uiGXzXWzdFw0ctZj meMnuSX7eLXAcrcpng618Gt Tez1piXECdxPSaBOzsGTA5O 32uc5Q4 PLFyBRJyMTV7oIV3rG7rsSv nbjogbGVmdDsgdmVydGljYW qzBVueA565WEUuvDaoLaMsm WVyOjwv dGQ+FT00ab71Y9XdMliuVwm 5DVGmTBC0kXZ8bX7sKIStLU lld9F5kCB8P2GbodZpxa3mq 2xsYXBz QNtkJ41ieZNbj (more content not included)... Normal [facility] Consent for Treatmenton 07-13 Consent for Treatment [id number]#1.00T IFF [facility] Outside Labson 07-27-2023 Outside Labs [id number]#1.00 TIFF [facility] Physician Orderon 07-27-2023 Physician Order [id number]#1.00 TIFF [facility] Formson 06-25-2023 Forms [id number]#1.00 TIFF [facility] Referrals Officeon Referrals Office [id number]#1.00 TIFF [facility] Office Visit (Cardiology)on 04-24-2022 Follow-up visit Diagnoses/Problems Assessed Coronary artery disease involving [place] heart without angina pectoris (414.01) (I25.10) Dyslipidemia (high LDL; low HDL) (272.4) (E78.5) Essential hypertension (401.9) (I10) H/O non-ST elevation myocardial infarction (NSTEMI) (412) (I25.2) Presence of stent in coronary artery (V45.82) (Z95.5) Overweight with body mass index (BMI) of 26 to 26.9 in adult (278.02,V85.22) (E66.3,Z68.26) Current smoker (305.1) (F17.200) Orders Coronary artery disease involving [place] heart without angina pectoris Renew: Clopidogrel Bisulfate 75 MG Oral Tablet; TAKE 1 TABLET EVERY DAY IO EKG Electrocardiogram- 12 Lead; Status:Complete; Done: 24Apr2022 Coronary artery disease involving [place] heart without angina pectoris, Dyslipidemia (high LDL; low HDL) Renew: Atorvastatin Calcium 80 MG Oral Tablet; TAKE 1 TABLET DAILY Coronary artery disease involving [place] heart without angina pectoris, Dyslipidemia (high LDL; low HDL), Essential hypertension, History of ischemic cardiomyopathy Comprehensive Metabolic Panel; Status:Active; Requested for:24Apr2022; Lipid Panel; Status:Active; Requested for:24Apr2022; Overweight with body mass index (BMI) of 26 to 26.9 in adult Healthy Weight Tips; Status:Complete; Done: 24Apr2022 Some eating tips that can help you lose weight.; Status:Complete; Done: 24Apr2022 SocHx: Current smoker Tobacco Use Screening; Status:Complete; Done: 24Apr2022 SocHx: Current smoker, Overweight with body mass index (BMI) of 26 to 26.9 in adult You need to stop smoking. Though it is not easy, more than half of all adult smokers have quit. We encourage you to write down all the reasons you should quit smoking and set a quit date for yourself. Ask us how we can help. You may also call 4-918-UZCC-NOW for free resources and assistance.; Status:Complete; Done: 24Apr2022 Patient Instructions Please bring all medicines, vitamins, and herbal supplements with you when you come to the office. Prescriptions will not be filled unless you are compliant with your follow up appointments or have a follow up appointment scheduled as per instruction of your physician. Refills should be requested at the time of your visit. Follow up in 1 year Chief Complaint LEMUEL RHODES is being seen for a cardiovascular evaluation. History of Present Illness 56-year-old is accompanied by to the office. 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 Previously saw Dr. Fernandes of [facility], last office visit December 2020 the results of which I have reviewed. Patient is examined in the wheelchair. He has chronic shortness of breath which is mostly explained on the basis of his COPD which is very apparent on physical examination. He is an ongoing smoker, although prior notes say that he did quit 2 years ago, his says that he continues to smoke patient attest to this, and has no intention to quit smoking, understands consequences. He also drinks on a regular basis, about 15 beers daily. He is on disability. 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 Has degenerative joint disease, underwent left hip replacement, continues to have issues pertaining to his hip, uses a walker at home, physical activity level is less than 4 METS due to multiple reasons, he was examined in the wheelchair here, has not had any falls, says he hangs onto objects when he gets around. Reports compliance with medications. EKG today shows sinus rhythm rate 85 TX interval 170 ms QRS duration 102 ms QTc 440 ms right atrial abnormality and a pattern of anterior septal myocardial infarction. Reviewed prior notes by Dr. Fernandes. No recent laboratory data to review. Assessment: 1.Hypertension-at target 2. COPD-ongoing nicotine addiction 3. Alcohol addiction 4. Echo October 2020 LVEF 45 to 50% 5. Hyperlipidemia 6. 64-tvrd-vvor history of smoking-continues to smoke 7. Family history of brain cancer lung cancer pancreatic cancer 8. EKG abnormalities-unchanged from prior 9. Atherosclerotic [place] vessel coronary artery disease, non-ST elevation myocardial infarction and bare-metal stent in the left circumflex artery October 2010, presented with inferior ST elevation myocardial infarction at that time. 10. Prior notes suggest that this patient has severe right common femoral artery stenosis. 11. Perfusion imaging study March 2019-7 METS 89% age-predicted maximum heart rate baseline blood pressure 120/74 maximum blood pressure 160/80 Bustamante treadmill score +6 terminated due to shortness of breath and mild leg fatigue LVEF 59% transient ischemic dilatation 1.05 there was evidence of diaphragm attenuation artifact 12. Echocardiogram 11/02/2020 LVEF 45 to 50% trace tricuspid regurgitation normal RV systolic pressure left atrial diameter 2.9 cm TAPSE 1.4 cm which is abnormal left atrial volume index 8.6 mL per metered squared RVSP was reported to be 25 mmHg 13. Coronary angiography April 2017-left (more content not included)... Normal [facility] PHQ-2 VITALSon 04-24-2022 Adult depression screening assessment No [facility] y 250 DO Work Phone: Tobacco Screening.on 023 Tobacco use status CPHS a) Yes [facility] 250 DO Work Phone: Tobacco Screening. Yes [facility] 250 DO Work Phone: XR HAND LT MIN 3Von 30-20 22 XR HAND LT MIN 3V IMAGES REVIEWED: XR HAND LT MIN 3V COMPARISON: None available. CLINICAL INDICATION: Pain FINDINGS/IMPRESSION: 1. Only well seen on the oblique view there appears to be an acute intra-articular nondisplaced fracture involving the ulnar-dorsal aspect of the base of the third proximal phalanx. 2. Moderate dorsal hand soft tissue swelling at the level of the MCP joints. Electronically authenticated by: YUMIKO HEWITT Date: 2021-12-11 17:19 Normal [facility] CORTISOLon 01-26-2021 Cortisol 6.4 ug/dL Normal [facility] Comment on above: Result Comment: Aidan isol AM 6.2 - 19.4 Cortisol PM 2.3 - 11.9 Performed By: #### C ORJAMIO #### [facility] [address] [address] [address] Judi Sevilla Basic Metabolic Panelon 120 Calcium [Mass/Vol] 8.3 mg/dL Normal 8.2-10.2 [facility] Comment on above: Performed By: #### P TT, CK, BMP, CKMB, CBC, PT, HS TROP, BNP #### [facility] [address] Chloride [Moles/Vol] 107 mmol/L Normal 95-114 [facility] Comment on above: Performed By: #### P TT, CK, BMP, CKMB, CBC, PT, HS TROP, BNP #### [facility] [address] CO2 [Moles/Vol] 23.1 mmol/L Normal 22.0-30.0 [facility] Comment on above: Performed By: #### P TT, CK, BMP, CKMB, CBC, PT, HS TROP, BNP #### [facility] [address] [place] [address] [place] Creatinine [Mass/Vol] 0.77 mg/dL Normal 0.64-1.27 [facility] Comment on above: Performed By: #### P TT, CK, BMP, CKMB, CBC, PT, HS TROP, BNP #### [facility] [address] [place] [address] [place] Creatinine Clr Calc Pharmacy 95.73 Normal [facility] Comment on above: Result Comment: PERF ORMED BY: [place] [address] PATHOLOGIST [employer] ASHUTOSH NAVARRO M.D. Performed By: #### P TT, CK, BMP, CKMB, CBC, PT, HS TROP, BNP #### [facility] [address] Estimated GFR ( Ofe > 60 Normal [facility] Comment on above: Result Comment: GFR estimated reference range: According to KDOQI guidelines, <60 ml/min/1.73m2 is sufficient to diagnose a patient with chronic kidney disease. Performed By: #### P TT, CK, BMP, CKMB, CBC, PT, HS TROP, BNP #### [facility] [address] Estimated GFR (Non- Am > 60 Normal [facility] Comment on above: Performed By: #### P TT, CK, BMP, CKMB, CBC, PT, HS TROP, BNP #### [address] Glucose [Mass/Vol] 90 mg/dL Normal 70-100 [facility] Comment on above: Result Comment: [place] Glucose Reference Range is dependent on time and content of last meal. Glucose of more than 200 mg/dL in a nonstressed, ambulatory subject supports the diagnosis of Diabetes Mellitus. ADA recommended reference range Performed By: #### P TT, CK, BMP, CKMB, CBC, PT, HS TROP, BNP #### [address] Potassium [Moles/Vol] 3.8 mmol/L Normal 3.5-5.1 [facility] Comment on above: Performed By: #### P TT, CK, BMP, CKMB, CBC, PT, HS TROP, BNP #### [address] Sodium [Moles/Vol] 137 mmol/L Normal 136-146 [facility] Comment on above: Performed By: #### P TT, CK, BMP, CKMB, CBC, PT, HS TROP, BNP #### [address] Urea nitrogen [Mass/Vol] 2 mg/dL Low 9-23 [facility] Comment on above: Performed By: #### P TT, CK, BMP, CKMB, CBC, PT, HS TROP, BNP #### [address] Complete Blood Count Auto Di ffon 01-12-2021 Basophils (Bld) [#/Vol] 0.0 10*3/uL Normal 0.0-0.2 [facility] Comment on above: Result Comment: PERF ORMED BY: [place] [address] PATHOLOGIST [employer] ASHUTOSH NAVARRO M.D. Performed By: #### P TT, CK, BMP, CKMB, CBC, PT, HS TROP, BNP #### [address] Basophils/100 WBC (Bld) 0.7 % Normal . [facility] Comment on above: Performed By: #### P TT, CK, BMP, CKMB, CBC, PT, HS TROP, BNP #### [address] Eosinophils (Bld) [#/Vol] 0.0 10*3/uL Normal 0.0-0.45 [facility] Comment on above: Performed By: #### P TT, CK, BMP, CKMB, CBC, PT, HS TROP, BNP #### [address] Eosinophils/100 WBC (Bld) 0.7 % Normal . [facility] Comment on above: Performed By: #### P TT, CK, BMP, CKMB, CBC, PT, HS TROP, BNP #### [address] Erythrocyte distribution width (RBC) [Ratio] 13.1 % Normal 12.0-14.8 [facility] Comment on above: Performed By: #### P TT, CK, BMP, CKMB, CBC, PT, HS TROP, BNP #### [address] Hematocrit (Bld) [Volume fraction] 29.8 % Low 38.8-50.0 [facility] Comment on above: Performed By: #### P TT, CK, BMP, CKMB, CBC, PT, HS TROP, BNP #### [address] Hemoglobin (Bld) [Mass/Vol] 10.4 g/dL Low 13.0-17.0 [facility] Comment on above: Performed By: #### P TT, CK, BMP, CKMB, CBC, PT, HS TROP, BNP #### [address] Lymphocytes (Bld) [#/Vol] 1.0 10*3/uL Normal 1.00-4.8 [facility] Comment on above: Performed By: #### P TT, CK, BMP, CKMB, CBC, PT, HS TROP, BNP #### [address] Lymphocytes/100 WBC (Bld) 27.3 % Normal . [facility] Comment on above: Performed By: #### P TT, CK, BMP, CKMB, CBC, PT, HS TROP, BNP #### [address] MCH (RBC) [Entitic mass] 36.6 pg High 27.5-35.2 [facility] Comment on above: Performed By: #### P TT, CK, BMP, CKMB, CBC, PT, HS TROP, BNP #### [address] MCV (RBC) [Entitic vol] 104.8 fL High 83.5-101 [facility] Comment on above: Performed By: #### P TT, CK, BMP, CKMB, CBC, PT, HS TROP, BNP #### [address] Mean Corpuscular HGB Conc 34.9 g/dL Normal 32.5-35.6 [facility] Comment on above: Performed By: #### P TT, CK, BMP, CKMB, CBC, PT, HS TROP, BNP #### [address] Monocytes (Bld) [#/Vol] 0.4 10*3/uL Normal 0.0-0.8 [facility] Comment on above: Performed By: #### P TT, CK, BMP, CKMB, CBC, PT, HS TROP, BNP #### [facility] [address] Monocytes/100 WBC (Bld) 9.7 % Normal . [facility] Comment on above: Performed By: #### P TT, CK, BMP, CKMB, CBC, PT, HS TROP, BNP #### [facility] [address] Neutrophils (Bld) [#/Vol] 2.2 10*3/uL Normal 1.8-7.7 [facility] Comment on above: Performed By: #### P TT, CK, BMP, CKMB, CBC, PT, HS TROP, BNP #### [address] Neutrophils/100 WBC (Bld) 61.6 % Normal . [facility] Comment on above: Performed By: #### P TT, CK, BMP, CKMB, CBC, PT, HS TROP, BNP #### [facility] [address] Nucleated RBC/100 WBC (Bld) [Ratio] 0.1 % Normal 0-0.5 [facility] Comment on above: Performed By: #### P TT, CK, BMP, CKMB, CBC, PT, HS TROP, BNP #### [facility] [address] Platelet mean volume (Bld) [Entitic vol] 9.0 fL Normal 6.6-10.1 [facility] Comment on above: Performed By: #### P TT, CK, BMP, CKMB, CBC, PT, HS TROP, BNP #### [place] [address] [place] Platelets (Bld) [#/Vol] 83 10*3/uL Low 150-450 [facility] Comment on above: Performed By: #### P TT, CK, BMP, CKMB, CBC, PT, HS TROP, BNP #### [address] RBC (Bld) [#/Vol] 2.84 10*6/uL Low 3.90-5.60 [facility] Comment on above: Performed By: #### P TT, CK, BMP, CKMB, CBC, PT, HS TROP, BNP #### [address] WBC (Bld) [#/Vol] 3.6 10*3/uL Low 4.5-11.0 [facility] Comment on above: Performed By: #### P TT, CK, BMP, CKMB, CBC, PT, HS TROP, BNP #### [address] Basic Metabolic Panelon 11-3 0-2020 Calcium [Mass/Vol] 8.1 mg/dL Low 8.2-10.2 [facility] Comment on above: Performed By: #### P TT, CK, BMP, CKMB, CBC, PT, HS TROP, BNP #### [address] Chloride [Moles/Vol] 107 mmol/L Normal 95-114 [facility] Comment on above: Performed By: #### P TT, CK, BMP, CKMB, CBC, PT, HS TROP, BNP #### [address] CO2 [Moles/Vol] 21.5 mmol/L Low 22.0-30.0 [facility] Comment on above: Performed By: #### P TT, CK, BMP, CKMB, CBC, PT, HS TROP, BNP #### [address] Creatinine [Mass/Vol] 0.79 mg/dL Normal 0.64-1.27 [facility] Comment on above: Performed By: #### P TT, CK, BMP, CKMB, CBC, PT, HS TROP, BNP #### [address] Creatinine Clr Calc Pharmacy 91.77 [facility] Comment on above: Result Comment: PERF ORMED BY: [place] [address] PATHOLOGIST [employer] ASHUTOSH NAVARRO M.D. Performed By: #### P TT, CK, BMP, CKMB, CBC, PT, HS TROP, BNP #### [address] Estimated GFR ( Ofe > 60 [facility] Comment on above: Result Comment: GFR estimated reference range: According to KDOQI guidelines, <60 ml/min/1.73m2 is sufficient to diagnose a patient with chronic kidney disease. Performed By: #### P TT, CK, BMP, CKMB, CBC, PT, HS TROP, BNP #### [address] Estimated GFR (Non- Am > 60 [facility] Comment on above: Performed By: #### P TT, CK, BMP, CKMB, CBC, PT, HS TROP, BNP #### [address] Glucose [Mass/Vol] 73 mg/dL Normal 70-100 [facility] Comment on above: Result Comment: [place] om Glucose Reference Range is dependent on time and content of last meal. Glucose of more than 200 mg/dL in a nonstressed, ambulatory subject supports the diagnosis of Diabetes Mellitus. ADA recommended reference range Performed By: #### P TT, CK, BMP, CKMB, CBC, PT, HS TROP, BNP #### [address] Potassium [Moles/Vol] 4.1 mmol/L Normal 3.5-5.1 [facility] Comment on above: Performed By: #### P TT, CK, BMP, CKMB, CBC, PT, HS TROP, BNP #### [address] Sodium [Moles/Vol] 137 mmol/L Normal 136-146 [facility] Comment on above: Performed By: #### P TT, CK, BMP, CKMB, CBC, PT, HS TROP, BNP #### [address] Urea nitrogen [Mass/Vol] 4 mg/dL Low 11-04 [facility] Comment on above: Performed By: #### P TT, CK, BMP, CKMB, CBC, PT, HS TROP, BNP #### [address] Complete Blood Count Auto Di ffon 01-11-2021 Basophils (Bld) [#/Vol] 0.0 10*3/uL Normal 0.0-0.2 [facility] Comment on above: Result Comment: PERF ORMED BY: [place] [address] PATHOLOGIST [employer] ASHUTOSH NAVARRO M.D. Performed By: #### P TT, CK, BMP, CKMB, CBC, PT, HS TROP, BNP #### [address] Basophils/100 WBC (Bld) 1.1 % Normal . [facility] Comment on above: Performed By: #### P TT, CK, BMP, CKMB, CBC, PT, HS TROP, BNP #### [address] Eosinophils (Bld) [#/Vol] 0.0 10*3/uL Normal 0.0-0.45 [facility] Comment on above: Performed By: #### P TT, CK, BMP, CKMB, CBC, PT, HS TROP, BNP #### [address] Eosinophils/100 WBC (Bld) 0.9 % Normal . [facility] Comment on above: Performed By: #### P TT, CK, BMP, CKMB, CBC, PT, HS TROP, BNP #### [address] Erythrocyte distribution width (RBC) [Ratio] 12.7 % Normal 12.0-14.8 [facility] Comment on above: Performed By: #### P TT, CK, BMP, CKMB, CBC, PT, HS TROP, BNP #### [address] Hematocrit (Bld) [Volume fraction] 31.5 % Low 38.8-50.0 [facility] Comment on above: Performed By: #### P TT, CK, BMP, CKMB, CBC, PT, HS TROP, BNP #### [address] Hemoglobin (Bld) [Mass/Vol] 10.9 g/dL Low 13.0-17.0 [facility] Comment on above: Performed By: #### P TT, CK, BMP, CKMB, CBC, PT, HS TROP, BNP #### [address] Lymphocytes (Bld) [#/Vol] 1.3 10*3/uL Normal 1.00-4.8 [facility] Comment on above: Performed By: #### P TT, CK, BMP, CKMB, CBC, PT, HS TROP, BNP #### [address] Lymphocytes/100 WBC (Bld) 28.8 % Normal . [facility] Comment on above: Performed By: #### P TT, CK, BMP, CKMB, CBC, PT, HS TROP, BNP #### [address] MCH (RBC) [Entitic mass] 36.2 pg High 27.5-35.2 [facility] Comment on above: Performed By: #### P TT, CK, BMP, CKMB, CBC, PT, HS TROP, BNP #### [address] MCV (RBC) [Entitic vol] 104.9 fL High 83.5-101 [facility] Comment on above: Performed By: #### P TT, CK, BMP, CKMB, CBC, PT, HS TROP, BNP #### [address] Mean Corpuscular HGB Conc 34.5 g/dL Normal 32.5-35.6 [facility] Comment on above: Performed By: #### P TT, CK, BMP, CKMB, CBC, PT, HS TROP, BNP #### [facility] [address] Monocytes (Bld) [#/Vol] 0.3 10*3/uL Normal 0.0-0.8 [facility] Comment on above: Performed By: #### P TT, CK, BMP, CKMB, CBC, PT, HS TROP, BNP #### [facility] [address] Monocytes/100 WBC (Bld) 7.6 % Normal . [facility] Comment on above: Performed By: #### P TT, CK, BMP, CKMB, CBC, PT, HS TROP, BNP #### [facility] [address] Neutrophils (Bld) [#/Vol] 2.7 10*3/uL Normal 1.8-7.7 [facility] Comment on above: Performed By: #### P TT, CK, BMP, CKMB, CBC, PT, HS TROP, BNP #### [facility] [address] Neutrophils/100 WBC (Bld) 61.6 % Normal . [facility] Comment on above: Performed By: #### P TT, CK, BMP, CKMB, CBC, PT, HS TROP, BNP #### [facility] [address] Nucleated RBC/100 WBC (Bld) [Ratio] 0.2 % Normal 0-0.5 [facility] Comment on above: Performed By: #### P TT, CK, BMP, CKMB, CBC, PT, HS TROP, BNP #### [address] Platelet mean volume (Bld) [Entitic vol] 9.2 fL Normal 6.6-10.1 [facility] Comment on above: Performed By: #### P TT, CK, BMP, CKMB, CBC, PT, HS TROP, BNP #### [facility] [address] Platelets (Bld) [#/Vol] 80 10*3/uL Low 150-450 [facility] Comment on above: Performed By: #### P TT, CK, BMP, CKMB, CBC, PT, HS TROP, BNP #### [address] RBC (Bld) [#/Vol] 3.01 10*6/uL Low 3.90-5.60 [facility] Comment on above: Performed By: #### P TT, CK, BMP, CKMB, CBC, PT, HS TROP, BNP #### [address] WBC (Bld) [#/Vol] 4.4 10*3/uL Low 4.5-11.0 [facility] Comment on above: Performed By: #### P TT, CK, BMP, CKMB, CBC, PT, HS TROP, BNP #### [address] Basic Metabolic Panelon 11-2 Calcium [Mass/Vol] 8.0 mg/dL Low 8.2-10.2 [facility] Comment on above: Performed By: #### P TT, CK, BMP, CKMB, CBC, PT, HS TROP, BNP #### [address] Chloride [Moles/Vol] 105 mmol/L Normal 95-114 [facility] Comment on above: Performed By: #### P TT, CK, BMP, CKMB, CBC, PT, HS TROP, BNP #### [address] CO2 [Moles/Vol] 25.8 mmol/L Normal 22.0-30.0 [facility] Comment on above: Performed By: #### P TT, CK, BMP, CKMB, CBC, PT, HS TROP, BNP #### [address] [address] [place] Creatinine [Mass/Vol] 0.78 mg/dL Normal 0.64-1.27 [facility] Comment on above: Performed By: #### P TT, CK, BMP, CKMB, CBC, PT, HS TROP, BNP #### [address] Creatinine Clr Calc Pharmacy 93.10 [facility] Comment on above: Result Comment: PERF ORMED BY: [place] [address] PATHOLOGIST [employer] ASHUTOSH NAVARRO M.D. Performed By: #### P TT, CK, BMP, CKMB, CBC, PT, HS TROP, BNP #### [address] Estimated GFR ( Ofe > 60 [facility] Comment on above: Result Comment: GFR estimated reference range: According to KDOQI guidelines, <60 ml/min/1.73m2 is sufficient to diagnose a patient with chronic kidney disease. Performed By: #### P TT, CK, BMP, CKMB, CBC, PT, HS TROP, BNP #### [facility] [address] [place] [address] Estimated GFR (Non- Am > 60 [facility] Comment on above: Performed By: #### P TT, CK, BMP, CKMB, CBC, PT, HS TROP, BNP #### [address] Glucose [Mass/Vol] 76 mg/dL Normal 70-100 [facility] Comment on above: Result Comment: [place] Glucose Reference Range is dependent on time and content of last meal. Glucose of more than 200 mg/dL in a nonstressed, ambulatory subject supports the diagnosis of Diabetes Mellitus. ADA recommended reference range Performed By: #### P TT, CK, BMP, CKMB, CBC, PT, HS TROP, BNP #### [address] Potassium [Moles/Vol] 3.6 mmol/L Normal 3.5-5.1 [facility] Comment on above: Performed By: #### P TT, CK, BMP, CKMB, CBC, PT, HS TROP, BNP #### [address] Sodium [Moles/Vol] 137 mmol/L Normal 136-146 [facility] Comment on above: Performed By: #### P TT, CK, BMP, CKMB, CBC, PT, HS TROP, BNP #### [address] Urea nitrogen [Mass/Vol] 5 mg/dL Low - [facility] Comment on above: Performed By: #### P TT, CK, BMP, CKMB, CBC, PT, HS TROP, BNP #### [address] Complete Blood Count Auto Di ffon 01-10-2021 Basophils (Bld) [#/Vol] 0.0 10*3/uL Normal 0.0-0.2 [facility] Comment on above: Result Comment: PERF ORMED BY: [place] [address] PATHOLOGIST [employer] ASHUTOSH NAVARRO M.D. Performed By: #### P TT, CK, BMP, CKMB, CBC, PT, HS TROP, BNP #### [address] Basophils/100 WBC (Bld) 0.8 % Normal . [facility] Comment on above: Performed By: #### P TT, CK, BMP, CKMB, CBC, PT, HS TROP, BNP #### [address] Eosinophils (Bld) [#/Vol] 0.0 10*3/uL Normal 0.0-0.45 [facility] Comment on above: Performed By: #### P TT, CK, BMP, CKMB, CBC, PT, HS TROP, BNP #### [address] Eosinophils/100 WBC (Bld) 0.7 % Normal . [facility] Comment on above: Performed By: #### P TT, CK, BMP, CKMB, CBC, PT, HS TROP, BNP #### [address] Erythrocyte distribution width (RBC) [Ratio] 13.0 % Normal 12.0-14.8 [facility] Comment on above: Performed By: #### P TT, CK, BMP, CKMB, CBC, PT, HS TROP, BNP #### [address] Hematocrit (Bld) [Volume fraction] 31.4 % Low 38.8-50.0 [facility] Comment on above: Performed By: #### P TT, CK, BMP, CKMB, CBC, PT, HS TROP, BNP #### [address] Hemoglobin (Bld) [Mass/Vol] 10.9 g/dL Low 13.0-17.0 [facility] Comment on above: Performed By: #### P TT, CK, BMP, CKMB, CBC, PT, HS TROP, BNP #### [address] Lymphocytes (Bld) [#/Vol] 0.9 10*3/uL Low 1.00-4.8 [facility] Comment on above: Performed By: #### P TT, CK, BMP, CKMB, CBC, PT, HS TROP, BNP #### [address] Lymphocytes/100 WBC (Bld) 25.2 % Normal . [facility] Comment on above: Performed By: #### P TT, CK, BMP, CKMB, CBC, PT, HS TROP, BNP #### [address] MCH (RBC) [Entitic mass] 35.9 pg High 27.5-35.2 [facility] Comment on above: Performed By: #### P TT, CK, BMP, CKMB, CBC, PT, HS TROP, BNP #### [address] MCV (RBC) [Entitic vol] 103.6 fL High 83.5-101 [facility] Comment on above: Performed By: #### P TT, CK, BMP, CKMB, CBC, PT, HS TROP, BNP #### [facility] [address] Mean Corpuscular HGB Conc 34.6 g/dL Normal 32.5-35.6 [facility] Comment on above: Performed By: #### P TT, CK, BMP, CKMB, CBC, PT, HS TROP, BNP #### [facility] [address] Monocytes (Bld) [#/Vol] 0.2 10*3/uL Normal 0.0-0.8 [facility] Comment on above: Performed By: #### P TT, CK, BMP, CKMB, CBC, PT, HS TROP, BNP #### [facility] [address] Monocytes/100 WBC (Bld) 6.1 % Normal . [facility] Comment on above: Performed By: #### P TT, CK, BMP, CKMB, CBC, PT, HS TROP, BNP #### [address] Neutrophils (Bld) [#/Vol] 2.3 10*3/uL Normal 1.8-7.7 [facility] Comment on above: Performed By: #### P TT, CK, BMP, CKMB, CBC, PT, HS TROP, BNP #### [address] Neutrophils/100 WBC (Bld) 67.2 % Normal . [facility] Comment on above: Performed By: #### P TT, CK, BMP, CKMB, CBC, PT, HS TROP, BNP #### [facility] [address] Nucleated RBC/100 WBC (Bld) [Ratio] 0.0 % Normal 0-0.5 [facility] Comment on above: Performed By: #### P TT, CK, BMP, CKMB, CBC, PT, HS TROP, BNP #### [facility] [address] Platelet mean volume (Bld) [Entitic vol] 9.2 fL Normal 6.6-10.1 [facility] Comment on above: Performed By: #### P TT, CK, BMP, CKMB, CBC, PT, HS TROP, BNP #### [address] Platelets (Bld) [#/Vol] 79 10*3/uL Low 150-450 [facility] Comment on above: Performed By: #### P TT, CK, BMP, CKMB, CBC, PT, HS TROP, BNP #### [address] RBC (Bld) [#/Vol] 3.03 10*6/uL Low 3.90-5.60 [facility] Comment on above: Performed By: #### P TT, CK, BMP, CKMB, CBC, PT, HS TROP, BNP #### [address] WBC (Bld) [#/Vol] 3.5 10*3/uL Low 4.5-11.0 [facility] Comment on above: Performed By: #### P TT, CK, BMP, CKMB, CBC, PT, HS TROP, BNP #### [address] Hereditary Hemochromatosis,D Carlota 01-10-2021 Hereditary Hemochromatosis Normal . [facility] Comment on above: Result Comment: NO M UTATION IDENTIFIED Interpretation: This patient's sample was analyzed for the hereditary hemochromatosis (HH) mutations C282Y, H63D, S65C. No mutation was identified. The mutations analyzed by [facility] are most common in the population, and up to 90% of affected Caucasians will have a positive test result. Because this panel does not identify rare HH mutations or HH mutations found in other ethnic groups, there are a small number of people who may have a negative test but may actually be affected. The diagnosis of HH should include clinical findings and other test results such as transferrin-iron saturation and/or serum ferritin studies and/or liver biopsy. If this patient has a history of HH, in many cases a specific carrier risk can be determined based on this negative result. Methodology: DNA Analysis of the HFE gene was performed by PCR amplification followed by restriction enzyme digestion analyses. Reference: Madelaine JS and Jc AP. (2000). Kathi Test 4:97-101. Bridgman et al. (1999). AM J Prev Med 16:134-140. Idania Vanegas (2002). Lancet 360(2310):167-24. Carmencita Bueno al. (2002). Blood Cells, Molecules. and Diseases. 29(3):418-432. Anabela Trejo et al. (2003). Kathi Med. 5(1):1-8. Nikolas HURTADO et al. (2003). Kathi Med. 5(4):304-10. This test was developed and its performance characteristics determined by [facility]. It has not been cleared or approved by the Food and Drug Administration. Genetic counselors are available for health care providers to discuss results at [phone]. Nani Mcknight, PhD, FACMG Karen Guzman, PhD, FACMG Thom Lauren PhD, FACMG Chauncey Khan PhD, FACMG Alon Galan, PhD, FACMG Sarah Bedolla, PhD, FACMG Performed at: [facility] [place], [place] [id number] Diving Supervisor: Juan Barney [facility], Phone: [phone] PERFORMED BY: [place] [address] PATHOLOGIST [employer] ASHUTOSH NAVARRO M.D. Performed By: #### P TT, CK, BMP, CKMB, CBC, PT, HS TROP, BNP #### [address] 01-10-2021 L --- Specimen: [id number] Received: 01/10/21 Status: ELOISE Duffy Num: [id number] Spec Type: Surgical Subm Dr: Carlos Hill MD Tissues: A Stomach - Biopsy/Polyp (GASTRIC BX) Procedures: HE Stain/2, Gross/Micro L4 Patient Age/Sex Location Account Attending Physician Lemuel Rhodes/[facility] [id number] Wicho Lan DO SPEC NUM: [id number] RECD: 01/10/21 STATUS: ELOISE PELAEZChristie NUM: [id number] LADAN: 01/10/[address] [facility] [address]: Carlos Hill MD ENTERED: 01/10/[address]: SPEC TYPE: Surgical DEPT: S ORDERED: HE Stain/2, Gross/Micro L4 ORDERED: HE Stain/2, Gross/Micro L4 Pathological Diagnosis Stomach, biopsy: - Mild chronic inactive gastritis - Negative for H. pylori microorganisms Clinical Information Nausea and vomiting, weight loss Gross Description Received in formalin labeled with the patient's name, number and gastric biopsies rule out gastritis are 2 mckenzie, hyperemic tissue fragments, each measuring 0.3 cm. Entirely submitted in one cassette labeled A1. (SM/JS) Microscopic Description Two glass slides with H E stained material have been examined. The microscopic findings support the above pathologic diagnosis. Immunohistochemical stain for H. pylori, with appropriate controls, has been requested and examined after reviewing H E sections. H. pylori stain is negative for microorganisms. [id number], [address] The use of one or more reagents in the above tests is regulated as an analyte specific reagent (ASR). The performance characteristics were determined by the Laboratory of [facility]. Immunohistochemistry assays have not been validated on Specimen: [id number] Received: 01/10/21 Status: ELOISE Duffy Num: [id number] Spec Type: Surgical Subm Dr: Carlos Hill MD Tissues: A Stomach - Biopsy/Polyp (GASTRIC BX) Procedures: HE Stain/2, Gross/Micro L4 Patient: Lemuel Rhodes [id number] (Continued) Specimen: [id number] Received: 01/10/21 (Continued) Microscopic Description (Continued) Signed (signature on file) Ashutosh Navarro MD 01/11/21 1610 Specimen: Received: 01/10/21 Status: ELOISE Philippe Num: [id number] Spec Type: Surgical Subm Dr: Carlos Hill MD Tissues: A Stomach - Biopsy/Polyp (GASTRIC BX) Procedures: HE Stain/2, Gross/Micro L4 Patient: Lemuel Rhodes [id number] (Continued) Specimen: [id number] Received: 01/10/21 (Continued) Microscopic Description (Continued) decalcified tissue. Results should be interpreted with caution given the possibility of false negative results on decalcified specimens. They have not been cleared by the [place] Food and Drug Administration. The FDA has determined that such clearance or approval is not necessary. Specimen: [id number] Received: 01/10/21 Status: ELOISE Duffy Num: [id number] Spec Type: Surgical Subm Dr: Carlos Hill MD Tissues: A Stomach - Biopsy/Polyp (GASTRIC BX) Procedures: HE Stain/2, Gross/Micro L4 Patient: Lemuel Rhodes [id number] (Continued) Signed (signature on file) Ashutosh Navarro MD 01/11/21 1610 Normal [facility] LORI Antinuclear Antibodieson 01-09-2021 Antinuclear Abs, IFA Negative Normal . [facility] Comment on above: Order Comment: retim e per lacey joshi to draw during am run Fasting? (See Test/Proc Notes): Y Result Comment: Nega tive <1:80 Borderline 1:80 Positive >1:80 ICAP nomenclature: AC-0 For more information about Hep-2 cell patterns use ANApatterns.org, the official website for the International Consensus on Antinuclear Antibody (LORI) Patterns (ICAP). Performed at: [facility] [place] [id number] Diving Supervisor: Mohsen Tan PhD, Phone: [phone] Performed By: #### P TT, CK, BMP, CKMB, CBC, PT, HS TROP, BNP #### [facility] [address] Basic Metabolic Panelon 12-14 Calcium [Mass/Vol] 8.1 mg/dL Low 8.2-10.2 [facility] Comment on above: Performed By: #### P TT, CK, BMP, CKMB, CBC, PT, HS TROP, BNP #### [facility] [address] [place] [address] [place] Chloride [Moles/Vol] 103 mmol/L Normal 95-114 [facility] Comment on above: Performed By: #### P TT, CK, BMP, CKMB, CBC, PT, HS TROP, BNP #### [facility] [address] [place] [address] [place] CO2 [Moles/Vol] 25.6 mmol/L Normal 22.0-30.0 [facility] Comment on above: Performed By: #### P TT, CK, BMP, CKMB, CBC, PT, HS TROP, BNP #### [facility] [address] [place] [address] [place] Creatinine [Mass/Vol] 0.84 mg/dL Normal 0.64-1.27 [facility] Comment on above: Performed By: #### P TT, CK, BMP, CKMB, CBC, PT, HS TROP, BNP #### [address] Creatinine Clr Calc Pharmacy 85.59 [facility] Comment on above: Result Comment: PERF ORMED BY: [place] [address] PATHOLOGIST [employer] ASHUTOSH NAVARRO M.D. Performed By: #### P TT, CK, BMP, CKMB, CBC, PT, HS TROP, BNP #### [address] Estimated GFR ( Ofe > 60 [facility] Comment on above: Result Comment: GFR estimated reference range: According to KDOQI guidelines, <60 ml/min/1.73m2 is sufficient to diagnose a patient with chronic kidney disease. Performed By: #### P TT, CK, BMP, CKMB, CBC, PT, HS TROP, BNP #### [address] Estimated GFR (Non- Am > 60 [facility] Comment on above: Performed By: #### P TT, CK, BMP, CKMB, CBC, PT, HS TROP, BNP #### [address] Glucose [Mass/Vol] 75 mg/dL Normal 70-100 [facility] Comment on above: Result Comment: [place] Glucose Reference Range is dependent on time and content of last meal. Glucose of more than 200 mg/dL in a nonstressed, ambulatory subject supports the diagnosis of Diabetes Mellitus. ADA recommended reference range Performed By: #### P TT, CK, BMP, CKMB, CBC, PT, HS TROP, BNP #### [address] Potassium [Moles/Vol] 3.3 mmol/L Low 3.5-5.1 [facility] Comment on above: Performed By: #### P TT, CK, BMP, CKMB, CBC, PT, HS TROP, BNP #### [address] Sodium [Moles/Vol] 136 mmol/L Normal 136-146 [facility] Comment on above: Performed By: #### P TT, CK, BMP, CKMB, CBC, PT, HS TROP, BNP #### [address] Urea nitrogen [Mass/Vol] 8 mg/dL Low 9- [facility] Comment on above: Performed By: #### P TT, CK, BMP, CKMB, CBC, PT, HS TROP, BNP #### [address] Complete Blood Count Auto Di ffon 01-09-2021 Basophils (Bld) [#/Vol] 0.0 10*3/uL Normal 0.0-0.2 [facility] Comment on above: Result Comment: PERF ORMED BY: [place] [address] PATHOLOGIST [employer] ASHUTOSH NAVARRO M.D. Performed By: #### P TT, CK, BMP, CKMB, CBC, PT, HS TROP, BNP #### [address] Basophils/100 WBC (Bld) 0.8 % Normal . [facility] Comment on above: Performed By: #### P TT, CK, BMP, CKMB, CBC, PT, HS TROP, BNP #### [address] Eosinophils (Bld) [#/Vol] 0.0 10*3/uL Normal 0.0-0.45 [facility] Comment on above: Performed By: #### P TT, CK, BMP, CKMB, CBC, PT, HS TROP, BNP #### [address] Eosinophils/100 WBC (Bld) 0.6 % Normal . [facility] Comment on above: Performed By: #### P TT, CK, BMP, CKMB, CBC, PT, HS TROP, BNP #### [address] Erythrocyte distribution width (RBC) [Ratio] 12.5 % Normal 12.0-14.8 [facility] Comment on above: Performed By: #### P TT, CK, BMP, CKMB, CBC, PT, HS TROP, BNP #### [address] Hematocrit (Bld) [Volume fraction] 34.6 % Low 38.8-50.0 [facility] Comment on above: Performed By: #### P TT, CK, BMP, CKMB, CBC, PT, HS TROP, BNP #### [address] Hemoglobin (Bld) [Mass/Vol] 12.2 g/dL Low 13.0-17.0 [facility] Comment on above: Performed By: #### P TT, CK, BMP, CKMB, CBC, PT, HS TROP, BNP #### [address] Lymphocytes (Bld) [#/Vol] 1.0 10*3/uL Normal 1.00-4.8 [facility] Comment on above: Performed By: #### P TT, CK, BMP, CKMB, CBC, PT, HS TROP, BNP #### [address] Lymphocytes/100 WBC (Bld) 26.8 % Normal . [facility] Comment on above: Performed By: #### P TT, CK, BMP, CKMB, CBC, PT, HS TROP, BNP #### [address] MCH (RBC) [Entitic mass] 36.2 pg High 27.5-35.2 [facility] Comment on above: Performed By: #### P TT, CK, BMP, CKMB, CBC, PT, HS TROP, BNP #### [address] MCV (RBC) [Entitic vol] 102.9 fL High 83.5-101 [facility] Comment on above: Performed By: #### P TT, CK, BMP, CKMB, CBC, PT, HS TROP, BNP #### [address] Mean Corpuscular HGB Conc 35.2 g/dL Normal 32.5-35.6 [facility] Comment on above: Performed By: #### P TT, CK, BMP, CKMB, CBC, PT, HS TROP, BNP #### [address] Monocytes (Bld) [#/Vol] 0.2 10*3/uL Normal 0.0-0.8 [facility] Comment on above: Performed By: #### P TT, CK, BMP, CKMB, CBC, PT, HS TROP, BNP #### [address] Monocytes/100 WBC (Bld) 6.3 % Normal . [facility] Comment on above: Performed By: #### P TT, CK, BMP, CKMB, CBC, PT, HS TROP, BNP #### [address] Neutrophils (Bld) [#/Vol] 2.5 10*3/uL Normal 1.8-7.7 [facility] Comment on above: Performed By: #### P TT, CK, BMP, CKMB, CBC, PT, HS TROP, BNP #### [place] [address] [place] Neutrophils/100 WBC (Bld) 65.5 % Normal . [facility] Comment on above: Performed By: #### P TT, CK, BMP, CKMB, CBC, PT, HS TROP, BNP #### [place] [address] [place] Nucleated RBC/100 WBC (Bld) [Ratio] 0.2 % Normal 0-0.5 [facility] Comment on above: Performed By: #### P TT, CK, BMP, CKMB, CBC, PT, HS TROP, BNP #### [address] [place] [address] [place] Platelet mean volume (Bld) [Entitic vol] 8.9 fL Normal 6.6-10.1 [facility] Comment on above: Performed By: #### P TT, CK, BMP, CKMB, CBC, PT, HS TROP, BNP #### [facility] [address] Platelets (Bld) [#/Vol] 82 10*3/uL Low 150-450 [facility] Comment on above: Performed By: #### P TT, CK, BMP, CKMB, CBC, PT, HS TROP, BNP #### [address] RBC (Bld) [#/Vol] 3.36 10*6/uL Low 3.90-5.60 [facility] Comment on above: Performed By: #### P TT, CK, BMP, CKMB, CBC, PT, HS TROP, BNP #### [address] WBC (Bld) [#/Vol] 3.8 10*3/uL Low 4.5-11.0 [facility] Comment on above: Performed By: #### P TT, CK, BMP, CKMB, CBC, PT, HS TROP, BNP #### [address] Hep C Fibrosureon 01-09-2021 [id number] ns, QN 117 mg/dL Normal 110-276 [facility] Comment on above: Order Comment: retim e per lacey joshi to draw during am run Fasting? (See Test/Proc Notes): Y Performed By: #### P TT, CK, BMP, CKMB, CBC, PT, HS TROP, BNP #### [address] Alt (SGPT) P5P 16 Normal 0-55 [facility] Comment on above: Order Comment: retim e per lacey joshi to draw during am run Fasting? (See Test/Proc Notes): Y Performed By: #### P TT, CK, BMP, CKMB, CBC, PT, HS TROP, BNP #### [address] Apolipoprotein A-1 68 mg/dL Low 101-178 [facility] Comment on above: Order Comment: retim e per rn madelyn to draw during am run Fasting? (See Test/Proc Notes): Y Performed By: #### P TT, CK, BMP, CKMB, CBC, PT, HS TROP, BNP #### [address] Bilirubin [Mass/Vol] 0.2 mg/dL Normal 0.0-1.2 [facility] Comment on above: Order Comment: retim e per rn madelyn to draw during am run Fasting? (See Test/Proc Notes): Y Performed By: #### P TT, CK, BMP, CKMB, CBC, PT, HS TROP, BNP #### [address] Comment: Normal . [facility] Comment on above: Order Comment: retim e per rn madelyn to draw during am run Fasting? (See Test/Proc Notes): Y Result Comment: This test was developed and its performance characteristics determined by [facility]. It has not been cleared or approved by the Food and Drug Administration. The FDA has determined that such clearance or approval is not necessary. For questions regarding this report please contact customer service at . Performed at: [address] [id number] Diving Supervisor: Beltran Alcaraz MD, Phone: [phone] PERFORMED BY: [place] [address] PATHOLOGIST [employer] ASHUTOSH NAVARRO M.D. Performed By: #### P TT, CK, BMP, CKMB, CBC, PT, HS TROP, BNP #### [address] Fibrosis Score 0.16 Normal 0.00-0.21 [facility] Comment on above: Order Comment: retim e per rn madelyn to draw during am run Fasting? (See Test/Proc Notes): Y Performed By: #### P TT, CK, BMP, CKMB, CBC, PT, HS TROP, BNP #### [address] Fibrosis Scoring: Normal . [facility] Comment on above: Order Comment: retim e per lacey joshi to draw during am run Fasting? (See Test/Proc Notes): Y Result Comment: <=0. 21 = Stage F0 - No fibrosis 0.21 - 0.27 = Stage F0 - F1 0.27 - 0.31 = Stage F1 - Portal fibrosis 0.31 - 0.48 = Stage F1 - F2 0.48 - 0.58 = Stage F2 - Bridging fibrosis with few septa 0.58 - 0.72 = Stage F3 - Bridging fibrosis with many septa 0.72 - 0.74 = Stage F3 - F4 >0.74 = Stage F4 - Cirrhosis Performed By: #### P TT, CK, BMP, CKMB, CBC, PT, HS TROP, BNP #### [address] Fibrosis Stage Normal . [facility] Comment on above: Order Comment: retim e per lacey joshi to draw during am run Fasting? (See Test/Proc Notes): Y Result Comment: F0 - No fibrosis Performed By: #### P TT, CK, BMP, CKMB, CBC, PT, HS TROP, BNP #### [address] Fibrosure Interpretation Normal . [facility] Comment on above: Order Comment: retim e per lacey joshi to draw during am run Fasting? (See Test/Proc Notes): Y Result Comment: Antonio titative results of 6 biochemical tests are analyzed using a computational algorithm to provide a quantitative surrogate marker (0.0-1.0) for liver fibrosis (METAVIR F0- F4) and for necroinflammatory activity (METAVIR A0-A3). Performed By: #### P TT, CK, BMP, CKMB, CBC, PT, HS TROP, BNP #### [address] Fibrosure Limitations: Normal . [facility] Comment on above: Order Comment: retim e per rn madelyn to draw during am run Fasting? (See Test/Proc Notes): Y Result Comment: The negative predictive value of a Fibrotest score <0.31 (absence of clinically significant fibrosis) was 85% when compared to liver biopsy in 1,270 HCV infected patients with a 38% prevalence of significant liver fibrosis (F2, 3 or 4). The positive predictive value of a Fibro-test score >0.48 (F2, 3, 4) was 61% in that same patient cohort. HCV FibroSURE is not recommended in patients with Gilbert Disease, acute hemolysis (e.g. HCV ribavirin therapy mediated hemolysis) acute hepa-titis of the liver, extra- hepatic cholestasis, transplant patients, and/or renal insufficiency patients. Any of these clinical situations may lead to inaccurate quantitative predictions of fibrosis and necroinflammatory activity in the liver. Performed By: #### P TT, CK, BMP, CKMB, CBC, PT, HS TROP, BNP #### [address] Gamma glutamyl transferase [Catalytic activity/Vol] 52 U/L Normal 0-65 [facility] Comment on above: Order Comment: retim e per rn madelyn to draw during am run Fasting? (See Test/Proc Notes): Y Performed By: #### P TT, CK, BMP, CKMB, CBC, PT, HS TROP, BNP #### [address] Grade A0-No activity Normal . [facility] Comment on above: Order Comment: retim e per rn madelyn to draw during am run Fasting? (See Test/Proc Notes): Y Performed By: #### P TT, CK, BMP, CKMB, CBC, PT, HS TROP, BNP #### [facility] [address] Haptoglobin 122 mg/dL Normal 29-370 [facility] Comment on above: Order Comment: retim e per rn madelyn to draw during am run Fasting? (See Test/Proc Notes): Y Performed By: #### P TT, CK, BMP, CKMB, CBC, PT, HS TROP, BNP #### [address] Score 0.05 Normal 0.00-0.17 [facility] Comment on above: Order Comment: retim e per rn madelyn to draw during am run Fasting? (See Test/Proc Notes): Y Performed By: #### P TT, CK, BMP, CKMB, CBC, PT, HS TROP, BNP #### [address] Scoring: Normal . [facility] Comment on above: Order Comment: retim e per rn madelyn to draw during am run Fasting? (See Test/Proc Notes): Y Result Comment: <0.1 7 = Grade A0 - No Activity 0.17 - 0.29 = Grade A0 - A1 0.29 - 0.36 = Grade A1 - Minimal activity 0.36 - 0.52 = Grade A1 - A2 0.52 - 0.60 = Grade A2 - Moderate activity 0.60 - 0.62 = Grade A2 - A3 >0.62 = Grade A3 - Severe activity Performed By: #### P TT, CK, BMP, CKMB, CBC, PT, HS TROP, BNP #### [address] Hepatitis Acute Panelon 12-14 HBsAg Screen Negative Normal Negative [facility] Comment on above: Order Comment: retim e per lacey joshi to draw during am run Fasting? (See Test/Proc Notes): Y Performed By: #### P TT, CK, BMP, CKMB, CBC, PT, HS TROP, BNP #### [address] Hepatitis A Antibody IgM Negative Normal Negative [facility] Comment on above: Order Comment: retim e per rn madelyn to draw during am run Fasting? (See Test/Proc Notes): Y Performed By: #### P TT, CK, BMP, CKMB, CBC, PT, HS TROP, BNP #### [address] Hepatitis B Core Antibody IgM Negative Normal Negative [facility] Comment on above: Order Comment: retim e per rn madelyn to draw during am run Fasting? (See Test/Proc Notes): Y Performed By: #### P TT, CK, BMP, CKMB, CBC, PT, HS TROP, BNP #### [address] Hepatitis C Virus Antibody 0.1 Normal 0.0-0.9 [facility] Comment on above: Order Comment: retim e per lacey joshi to draw during am run Fasting? (See Test/Proc Notes): Y Result Comment: Nega tive: < 0.8 Indeterminate: 0.8 - 0.9 Positive: > 0.[address] [facility] recommends that a positive HCV antibody result be followed up with a HCV Nucleic Acid Amplification test (540848). Performed at: [address] [id number] Diving Supervisor: Mohsen Tan PhD, Phone: [phone] Performed By: #### P TT, CK, BMP, CKMB, CBC, PT, HS TROP, BNP #### [facility] [address] [place] [address] 01-09-2021 L --- Specimen: [id number] Received: 01/09/21 Status: ELOISE Duffy Num: [id number] Spec Type: Impression Subm Dr: Balbina Vyas DO Tissues: PATHPER Procedures: PATHREVIEW Patient Age/Sex Location Account Attending Physician Lemuel Rhodes 55/M [id number] Wicho Lan, DO SPEC NUM: [id number] RECD: 01/09/21 STATUS: ELOISE DUFFY NUM: [id number] LADAN: 01/09/21- DR: Balbina Vyas DO ENTERED: 01/09/[address]: JOSE F TYPE: Impression DEPT: [place] ENTERED BY: [id number] RECV BY: [id number] ORDERED: PATHREVIEW ORDERED: PATHREVIEW Pathologist Review Mild macrocytic normochromic anemia with rare target cells and ovalocytes. Mild leukopenia. Thrombocytopenia. Possible causes include decreased production, sequestration, increased consumption and peripheral destruction. Correlation with clinical findings is recommended. [id number] CBC Date Time Test Result Flag (u) Normal Range 01/09/21 0710 WBC 3.8 L 4.1-10.5 X10E3/uL RBC 3.36 L 3.90-5.60 x10E6/uL HGB 12.2 L 13.0-17.0 g/dL HCT 34.6 L 38.8-50.0 % MCV 102.9 H 83.5-101 fl MCH 36.2 H 27.5-35.2 pg MCHC 35.2 32.5-35.6 g/dL RDW 12.5 12.0-14.8 % Plt 82 L 150-450 x10E3/uL MPV 8.9 6.6-10.1 fl Neut % (Auto) 65.5 . % Lymp % (Auto) 26.8 . % [place] % (Auto) 6.3 . % Eos % (Auto) 0.6 . % Baso % (Auto) 0.8 . % NRBC% 0.2 0-0.5 % Specimen: [id number] Received: 01/09/21 Status: ELOISE Duffy Num: [id number] Spec Type: Impression Subm Dr: Balbina Vyas DO Tissues: PATHPER Procedures: PATHREVIEW Patient: Lemuel Rhodes [id number] (Continued) Specimen: [id number] Received: 01/09/21 (Continued) CBC (Continued) Signed (signature on file) Ashutosh Navarro MD 01/10/21 1415 Specimen: [id number] Received: 01/09/21 Status: ELOISE Duffy Num: [id number] Spec Type: Impression Subm Dr: Balbina Vyas DO Tissues: PATHPER Procedures: PATHREVIEW Patient: Lemuel Rhodes [id number] (Continued) Specimen: [id number] Received: 01/09/21 (Continued) CBC (Continued) Neut # (Auto) 2.5 1.8-7.7 x10E3/uL Lymph # (Auto) 1.0 1.00-4.8 x10E3/uL [place] # (Auto) 0.2 0.0-0.8 x10E3/uL Eos # (Auto) 0.0 0.0-0.45 x10E3/uL Baso# (Auto) 0.0 0.0-0.2 x10E3/uL Specimen: [id number] Received: 01/09/21 Status: ELOISE Duffy Num: [id number] Spec Type: Impression Subm Dr: Balbina Vyas DO Tissues: PATHPER Procedures: PATHREVIEW Patient: Lemuel Rhodes [id number] (Continued) Signed (signature on file) Ashutosh Navarro MD 01/10/21 1415 Normal [facility] Lactic Acidon 01-09-2021 Lactate [Moles/Vol] 0.7 mmol/L Normal 0.5-2.2 [facility] Comment on above: Result Comment: PERF ORMED BY: [facility] [address] [place] [address] PATHOLOGIST [employer] JIANLAN SUN M.D. Performed By: #### P TT, CK, BMP, CKMB, CBC, PT, HS TROP, BNP #### [facility] [address] [place] [address] Pathologist Slide Reviewon 1 03-11-2020 Pathologist Slide Review Ordered Path Review Normal [facility] Comment on above: Order Comment: Comme nt CBC, pancytopenia Result Comment: PERF ORMED BY: [place] [address] PATHOLOGIST [employer] ASHUTOSH NAVARRO M.D. Performed By: #### P TT, CK, BMP, CKMB, CBC, PT, HS TROP, BNP #### [address] Prothrombin Time INRon 01-09 INR Coag (PPP) [Relative time] 1.2 {INR} Normal [facility] Comment on above: Result Comment: INR Therapeutic Range A) Pre- and Peroperative OAT started two weeks before surgery. NOT HIP SURGERY: 1.5 - 2.5 HIP SURGERY: 2 - 3 B) Primary and secondary prevention of venous THROMBOSIS: 2 - 3 C) Active venous thrombosis, pulmonary embolism and prevention of recurrent venous thrombosis: 2 - 3 D) Prevention of arterial thromboembolism including patients with mechanical heart valves: 3 - 4.5 PERFORMED BY: [place] [address] PATHOLOGIST [employer] ASHUTOSH NAVARRO M.D. Performed By: #### P TT, CK, BMP, CKMB, CBC, PT, HS TROP, BNP #### [address] PT Coag (PPP) [Time] 13.6 s High 9.0-12.9 [facility] Comment on above: Performed By: #### P TT, CK, BMP, CKMB, CBC, PT, HS TROP, BNP #### [address] Vitamin B1 (Thiamine) Bloodo n 01-09-2021 Vitamin B1 (Thiamine) Blood 74.6 Normal 66.5-200.0 [facility] Comment on above: Result Comment: This test was developed and its performance characteristics determined by [facility] [employer]. It has not been cleared or approved by the Food and Drug Administration. Performed at: [facility], [place], [place] [id number] Diving Supervisor: Beltran Alcaraz MD, Phone: [phone] PERFORMED BY: [place] [address] PATHOLOGIST [employer] ASHUTOSH NAVARRO M.D. Performed By: #### P TT, CK, BMP, CKMB, CBC, PT, HS TROP, BNP #### [address] Basic Metabolic Panelon 11-2 Calcium [Mass/Vol] 7.9 mg/dL Low 8.2-10.2 [facility] Comment on above: Performed By: #### P TT, CK, BMP, CKMB, CBC, PT, HS TROP, BNP #### [address] Chloride [Moles/Vol] 100 mmol/L Normal 95-114 [facility] Comment on above: Performed By: #### P TT, CK, BMP, CKMB, CBC, PT, HS TROP, BNP #### [address] CO2 [Moles/Vol] 24.0 mmol/L Normal 22.0-30.0 [facility] Comment on above: Performed By: #### P TT, CK, BMP, CKMB, CBC, PT, HS TROP, BNP #### [address] Creatinine [Mass/Vol] 0.81 mg/dL Normal 0.64-1.27 [facility] Comment on above: Performed By: #### P TT, CK, BMP, CKMB, CBC, PT, HS TROP, BNP #### [address] Creatinine Clr Calc Pharmacy 87.87 Normal [facility] Comment on above: Result Comment: PERF ORMED BY: [place] [address] PATHOLOGIST [employer] ASHUTOSH NAVARRO M.D. Performed By: #### P TT, CK, BMP, CKMB, CBC, PT, HS TROP, BNP #### [facility] [address] Estimated GFR ( Ofe > 60 Normal [facility] Comment on above: Result Comment: GFR estimated reference range: According to KDOQI guidelines, <60 ml/min/1.73m2 is sufficient to diagnose a patient with chronic kidney disease. Performed By: #### P TT, CK, BMP, CKMB, CBC, PT, HS TROP, BNP #### [facility] [address] Estimated GFR (Non- Am > 60 Normal [facility] Comment on above: Performed By: #### P TT, CK, BMP, CKMB, CBC, PT, HS TROP, BNP #### [address] Glucose [Mass/Vol] 80 mg/dL Normal 70-100 [facility] Comment on above: Result Comment: [place] Glucose Reference Range is dependent on time and content of last meal. Glucose of more than 200 mg/dL in a nonstressed, ambulatory subject supports the diagnosis of Diabetes Mellitus. ADA recommended reference range Performed By: #### P TT, CK, BMP, CKMB, CBC, PT, HS TROP, BNP #### [address] Potassium [Moles/Vol] 3.5 mmol/L Normal 3.5-5.1 [facility] Comment on above: Performed By: #### P TT, CK, BMP, CKMB, CBC, PT, HS TROP, BNP #### [facility] [address] Sodium [Moles/Vol] 132 mmol/L Low 136-146 [facility] Comment on above: Performed By: #### P TT, CK, BMP, CKMB, CBC, PT, HS TROP, BNP #### [address] Urea nitrogen [Mass/Vol] 8 mg/dL Low 9-23 [facility] Comment on above: Performed By: #### P TT, CK, BMP, CKMB, CBC, PT, HS TROP, BNP #### [facility] [address] [place] [id number] [facility] CT abdomen pelvis wo conon 1 03-10-2020 CT abdomen pelvis wo con [facility] [place] [address] [place] [address] CT Scan Report Signed Patient: Lemuel Rhodes MR#: [id number] : 1965 Acct:[id number] Age/Sex: 55 / M ADM Date: 01/07/21 Loc: Room: [address] [place] [address] Type: ADM IN Attending Dr: Balbina Vyas DO Ordering Provider: Maria D Andrea MD Date of Service: 01/07/21 CT/CT abdomen pelvis wo con: Vomiting, weight loss Copies to: DO Maria D Villarreal MD CT abdomen and pelvis withoutcontrast TECHNIQUE: Axial imaging with 2-D reconstruction. . The CT exam was performed using one or more the following dose reduction techniques: Automated exposure control, adjustment of the MA and/or Kv according to patient size, or use of the iterative reconstruction technique. COMPARISON:None History: Bilateral leg weakness. Weight loss. LEFT upper quadrant pain. Nausea and vomiting. Mild emphysematous changes at lung bases present. No hepatic mass or intrahepatic biliary ductal dilatation identified. Normal density of the liver parenchyma identified. No gallbladder abnormality identified. No extrahepatic biliary ductal dilatation identified. There is no splenomegaly or splenic mass identified. No pancreatic mass or ductal dilatation identified. The adrenal glands are unremarkable. No nephrolithiasis or obstructive uropathy is identified. No abdominal aortic aneurysm identified. No significant retroperitoneal abnormalities identified. The small bowel loops are nondistended. The appendix is normal. There is mild thickening of the wall of the colon extending for the entire length. This may represent underdistention. May consider colitis. No bowel obstruction. Urinary bladder is unremarkable. Reproductive structures are unremarkable. No free intraperitoneal air or fluid is identified. Patient status post RIGHT hip replacement. No complication. No acute fracture. No significant spinal stenosis. No subcutaneous soft tissue abnormality identified. CT/CT abdomen pelvis wo con IMPRESSION: Mild thickening of the wall the colon extending throughout its entire length. This may represent underdistention or colitis. No bowel obstruction. Impression dictated by: Vaughn Warner M.D.01/08/2021 8:19 AM Dictation Location: [place] [address] Transcribed By: [facility] 01/08/21818 Dictated By: Vaughn Warner DO 01/08/21815 Signed By: 01/08/21818 Normal [facility] CT chest w conon 01-08-2021 CT chest w [facility] [place] [address] [place] [address] CT Scan Report Signed Patient: Lemuel Rhodes MR#: [id number] : 1965 Acct:[id number] Age/Sex: 55 / M ADM Date: 01/07/21 Loc: Room: [address] [place] [address] Type: ADM IN Attending Dr: Balbina Vyas DO Ordering Provider: Cande Vega MD Date of Service: 01/07/21 CT/CT chest w con: r/o malignancy Copies to: MD Balbina Duval DO CT chest withcontrast TECHNIQUE: Axial imaging with 2-D reconstruction. 90 cc of [id number] CT exam was performed using one or more the following dose reduction techniques: Automated exposure control, adjustment of the MA and/or Kv according to patient size, or use of the iterative reconstruction technique. History: Bilateral leg weakness. Weight loss. LEFT upper quadrant pain. Nausea and vomiting. COMPARISON: None The thyroid gland is normal. Central airway is patent. Esophagus is normal course and caliber. Heart is not enlarged. No pericardial effusion is seen. Small calcified mediastinal lymph nodes identified. No hilar mass or adenopathy is seen. No thoracic aortic aneurysm is seen. 2 tiny adjacent nodular foci within the super segment of LEFT lower lobe measure up to 2 mm. No infiltrate or congestion identified. No pleural effusion identified. No pneumothorax seen. Moderate pulmonary emphysema noted. No chest wall abnormality seen. The bony structures are intact. Images of the upper abdomen are noncontributory. CT/CT chest w con IMPRESSION: Moderate emphysema. 2 tiny LEFT lower lobe nodules. Impression dictated by: Vaughn Warner M.D.01/08/2021 8:48 AM Dictation Location: [place] [address] Transcribed By: [facility] 01/08/2148 Dictated By: Vaughn Warner DO 01/08/2142 Signed By: 01/08/2148 Normal [facility] Complete Blood Count Auto Di ffon 01-08-2021 Basophils (Bld) [#/Vol] 0.0 10*3/uL Normal 0.0-0.2 [facility] Comment on above: Result Comment: PERF ORMED BY: [place] [address] PATHOLOGIST [employer] ASHUTOSH NAVARRO M.D. Performed By: #### P TT, CK, BMP, CKMB, CBC, PT, HS TROP, BNP #### [address] Basophils/100 WBC (Bld) 0.7 % Normal . [facility] Comment on above: Performed By: #### P TT, CK, BMP, CKMB, CBC, PT, HS TROP, BNP #### [address] Eosinophils (Bld) [#/Vol] 0.0 10*3/uL Normal 0.0-0.45 [facility] Comment on above: Performed By: #### P TT, CK, BMP, CKMB, CBC, PT, HS TROP, BNP #### [address] Eosinophils/100 WBC (Bld) 0.4 % Normal . [facility] Comment on above: Performed By: #### P TT, CK, BMP, CKMB, CBC, PT, HS TROP, BNP #### [address] Erythrocyte distribution width (RBC) [Ratio] 12.6 % Normal 12.0-14.8 [facility] Comment on above: Performed By: #### P TT, CK, BMP, CKMB, CBC, PT, HS TROP, BNP #### [address] Hematocrit (Bld) [Volume fraction] 34.8 % Low 38.8-50.0 [facility] Comment on above: Performed By: #### P TT, CK, BMP, CKMB, CBC, PT, HS TROP, BNP #### [address] Hemoglobin (Bld) [Mass/Vol] 12.2 g/dL Low 13.0-17.0 [facility] Comment on above: Performed By: #### P TT, CK, BMP, CKMB, CBC, PT, HS TROP, BNP #### [address] Lymphocytes (Bld) [#/Vol] 0.9 10*3/uL Low 1.00-4.8 [facility] Comment on above: Performed By: #### P TT, CK, BMP, CKMB, CBC, PT, HS TROP, BNP #### [address] Lymphocytes/100 WBC (Bld) 26.6 % Normal . [facility] Comment on above: Performed By: #### P TT, CK, BMP, CKMB, CBC, PT, HS TROP, BNP #### [address] MCH (RBC) [Entitic mass] 36.2 pg High 27.5-35.2 [facility] Comment on above: Performed By: #### P TT, CK, BMP, CKMB, CBC, PT, HS TROP, BNP #### [address] MCV (RBC) [Entitic vol] 103.1 fL High 83.5-101 [facility] Comment on above: Performed By: #### P TT, CK, BMP, CKMB, CBC, PT, HS TROP, BNP #### [address] Mean Corpuscular HGB Conc 35.1 g/dL Normal 32.5-35.6 [facility] Comment on above: Performed By: #### P TT, CK, BMP, CKMB, CBC, PT, HS TROP, BNP #### [facility] [address] [place] [address] [place] Monocytes (Bld) [#/Vol] 0.3 10*3/uL Normal 0.0-0.8 [facility] Comment on above: Performed By: #### P TT, CK, BMP, CKMB, CBC, PT, HS TROP, BNP #### [place] [address] [place] Monocytes/100 WBC (Bld) 8.1 % Normal . [facility] Comment on above: Performed By: #### P TT, CK, BMP, CKMB, CBC, PT, HS TROP, BNP #### [address] Neutrophils (Bld) [#/Vol] 2.1 10*3/uL Normal 1.8-7.7 [facility] Comment on above: Performed By: #### P TT, CK, BMP, CKMB, CBC, PT, HS TROP, BNP #### [address] Neutrophils/100 WBC (Bld) 64.2 % Normal . [facility] Comment on above: Performed By: #### P TT, CK, BMP, CKMB, CBC, PT, HS TROP, BNP #### [place] [address] [place] Nucleated RBC/100 WBC (Bld) [Ratio] 0.2 % Normal 0-0.5 [facility] Comment on above: Performed By: #### P TT, CK, BMP, CKMB, CBC, PT, HS TROP, BNP #### [place] [address] [place] Platelet mean volume (Bld) [Entitic vol] 9.1 fL Normal 6.6-10.1 [facility] Comment on above: Performed By: #### P TT, CK, BMP, CKMB, CBC, PT, HS TROP, BNP #### [place] [address] [place] Platelets (Bld) [#/Vol] 79 10*3/uL Low 150-450 [facility] Comment on above: Performed By: #### P TT, CK, BMP, CKMB, CBC, PT, HS TROP, BNP #### [address] RBC (Bld) [#/Vol] 3.37 10*6/uL Low 3.90-5.60 [facility] Comment on above: Performed By: #### P TT, CK, BMP, CKMB, CBC, PT, HS TROP, BNP #### [address] WBC (Bld) [#/Vol] 3.3 10*3/uL Low 4.5-11.0 [facility] Comment on above: Performed By: #### P TT, CK, BMP, CKMB, CBC, PT, HS TROP, BNP #### [address] Ferritinon 01-08-2021 Ferritin [Mass/Vol] 445.9 ng/mL High 23.9-336.2 [facility] Comment on above: Order Comment: comme nt add on to am labs Result Comment: PERF ORMED BY: [place] [address] PATHOLOGIST [employer] ASHUTOSH NAVARRO M.D. Performed By: #### P TT, CK, BMP, CKMB, CBC, PT, HS TROP, BNP #### [address] Lactic Acidon 01-08-2021 Lactate [Moles/Vol] 2.6 mmol/L Off scale high 0.5-2.2 [facility] Comment on above: Result Comment: Resu lts called at 1133 on 01/08/21 PERFORMED BY: [place] [address] PATHOLOGIST [employer] ASHUTOSH NAVARRO M.D. Performed By: #### P TT, CK, BMP, CKMB, CBC, PT, HS TROP, BNP #### [place] [address] Lactic Acid Reflexon 021 Lactic Acid Reflex 2.0 mmol/L Off scale high 0.5-2.2 [facility] Comment on above: Result Comment: Resu lts called at 1458 on 01/08/21 PERFORMED BY: [place] [address] PATHOLOGIST [employer] ASHUTOSH NAVARRO M.D. Performed By: #### P TT, CK, BMP, CKMB, CBC, PT, HS TROP, BNP #### [address] Lactic Acid Reflex 3.0 mmol/L Off scale high 0.5-2.2 [facility] Comment on above: Result Comment: Resu lts called at 2336 on 01/07/21 PERFORMED BY: [place] [address] PATHOLOGIST [employer] ASHUTOSH NAVARRO M.D. Performed By: #### P TT, CK, BMP, CKMB, CBC, PT, HS TROP, BNP #### [address] MR head/brain wo/w conon MR head/brain wo/w con [facility] [place] [address] MRI Report Signed Patient: Lemuel Rhodes MR#: [id number] : 1965 Acct:[id number] Age/Sex: 55 / M ADM Date: 01/07/21 Loc: Room: [address] [place] [address] Type: ADM IN Attending Dr: Balbina Vyas DO Ordering Provider: Cande Vega MD Date of Service: 01/07/21 MR/MR head/brain wo/w con: diziness, r/o malignacy Copies to: MD Balbina Duval DO MRI the brain with and withoutcontrast TECHNIQUE: Multiplanar T1 and T2-weighted imaging of the brain. 12 cc of ProHance administered. HISTORY:Unexplained weight loss. Nausea. Weakness. Multiple falls. COMPARISON:none The ventricles are normal in size and position. Mild diffuse atrophy identified. Scattered foci of increased T2/FLAIR signal intensity of the brain parenchyma is consistent with chronic small vessel ischemic changes. No intracranial hemorrhage, mass effect or herniation identified. No diffusion restriction is seen to suggest recent infarction. Motion artifact limits the diffusion-weighted imaging. The midbrain structures are unremarkable. No abnormal extra-axial fluid collections identified. The sinuses, orbits and mastoid air cells are unremarkable. No pathologic enhancement or enhancing mass identified. MR/MR head/brain wo/w con IMPRESSION: Limited exam. No acute intracranial process. Findings consistent with chronic small vessel ischemic changes and mild atrophy. No pathologic enhancement. Impression dictated by: Vaughn Warner M.D.01/08/2021 9:59 AM Dictation Location: [place] [address] Transcribed By: [facility] 01/08/21958 Dictated By: Vaughn Warner DO 01/08/21 0954 Signed By: 01/08/2159 Normal [facility] Troponin I High Sensitivityo n 01-08-2021 Troponin I High Sensitivity 6 pg/mL Normal 0-20 [facility] Comment on above: Result Comment: PERF ORMED BY: [place] [address] PATHOLOGIST [employer] ASHUTOSH NAVARRO M.D. Performed By: #### P TT, CK, BMP, CKMB, CBC, PT, HS TROP, BNP #### [facility] [address] [place] [address] liveron 01-08-2021 liver [facility] [place] [address] Ultrasound Report Signed Patient: Lemuel Rhodes MR#: [id number] : 1965 Acct:[id number] Age/Sex: 55 / M ADM Date: 01/07/21 Loc: 3T Room: [address] [place] [address] Type: ADM IN Attending Dr: Balbina Vyas DO Ordering Provider: Carlos Hill MD Date of Service: 01/08/21 US/US liver: Cirrhosis Copies to: MD Balbina Dubose DO Liver ultrasound HISTORY: Cirrhosis COMPARISON:None Negative ultrasound Askew's sign reported. Common duct measures 2.5mm. Diffuse increased echogenicity of the liver is consistent with fatty infiltration. No hepatic mass identified. No intrahepatic biliary ductal dilatation identified. No gallstones or gallbladder sludge identified. No gallbladder wall thickening is seen. No pericholecystic fluid is identified. There is limited assessment of the pancreatic tail. No pancreatic mass or ductal dilatation identified. Normal blood flow of the main portal vein is identified. The liver has a length of14.3 cm. No RIGHT hydronephrosis identified. US/US liver IMPRESSION: Hepatic steatosis. No biliary duct dilatation. No hepatic mass. Limited assessment of pancreas. No gallbladder abnormality. Impression dictated by: Vaughn Warner M.D.01/08/2021 2:40 PM Dictation Location: [place] [address] Tech: Gaby Denton Transcribed By: FRANTZ 01/08/21 1440 Dictated By: Vaughn Warner DO 01/08/21 1438 Signed By: 01/08/21 1440 Normal [facility] US venous duplex LE BIon US venous duplex LE BI [facility] [place] [address] Ultrasound Report Signed Patient: Lemuel Rhodes MR#: [id number] : 1965 Acct:[id number] Age/Sex: 55 / M ADM Date: 01/07/21 Loc: Room: [address] [place] [address] Type: ADM IN Attending Dr: Balbina Vyas DO Ordering Provider: Cande Vega MD Date of Service: 01/07/21 US/US venous duplex LE BI: r/o dvt Copies to: MD Balbina Duval DO BILATERAL LOWER EXTREMITY VENOUS DUPLEX INDICATION: Increased d-dimer, recent left hip surgery PROCEDURE: Color-flow duplex scanning is used to interrogate the deep venous system of the right and left lower extremities. The common femoral vein, femoral vein and popliteal vein show good compressibility with normal proximal and distal augmentation. The calf veins are compressible. US/US venous duplex LE BI IMPRESSION: NO EVIDENCE FOR DEEP VEIN THROMBOSIS OR PROXIMAL SUPERFICIAL THROMBOPHLEBITIS IN THE RIGHT OR LEFT LOWER EXTREMITY. Impression dictated by: Mathew Knowles MD01/08/2021 12:12 PM Dictation Location: [place] [address] Tech: Yin Flores Transcribed By: FRANTZ 01/08/211211 Dictated By: Mathew Knowles MD 01/08/211210 Signed By: 01/08/21 1212 Normal [facility] Vit. B12/Folate Profileon Cobalamin (Vitamin B12) [Mass/Vol] 797 pg/mL Normal 180-914 [facility] Comment on above: Performed By: #### P TT, CK, BMP, CKMB, CBC, PT, HS TROP, BNP #### [address] Folate 2.7 ng/mL Low >5.9 [facility] Comment on above: Result Comment: Luly te reference range: >5.9 ng/ml The WHO technical consultation on folate and vitamin b12 deficiencies has determined that folate concentrations less than 4 ng/ml are considered deficient. PERFORMED BY: [place] [address] PATHOLOGIST [employer] ASHUTOSH NAVARRO M.D. Performed By: #### P TT, CK, BMP, CKMB, CBC, PT, HS TROP, BNP #### [place] [id number] [facility] Ammoniaon 01-07-2021 Ammonia (P) [Moles/Vol] 12 umol/L Normal 11-35 [facility] Comment on above: Result Comment: PERF ORMED BY: [place] [address] PATHOLOGIST [employer] ASHUTOSH NAVARRO M.D. Performed By: #### P TT, CK, BMP, CKMB, CBC, PT, HS TROP, BNP #### [address] Arterial Blood Gason ABG Base Excess 2.4 mmol/L Normal -3.0-3.0 [facility] Comment on above: Performed By: #### P TT, CK, BMP, CKMB, CBC, PT, HS TROP, BNP #### [address] ABG Frac Inspired O2 21 % Normal [facility] Comment on above: Performed By: #### P TT, CK, BMP, CKMB, CBC, PT, HS TROP, BNP #### [address] ABG Oxygen Content 1.9 mmol/L Low 6.6-9.7 [facility] Comment on above: Performed By: #### P TT, CK, BMP, CKMB, CBC, PT, HS TROP, BNP #### [address] ABG Oxygen Saturation 25.3 % Low 95.0-100.0 [facility] Comment on above: Performed By: #### P TT, CK, BMP, CKMB, CBC, PT, HS TROP, BNP #### [address] ABG PCO2 45.7 mm[Hg] High 35.0-45.0 [facility] Comment on above: Performed By: #### P TT, CK, BMP, CKMB, CBC, PT, HS TROP, BNP #### [address] ABG PH 7.40 Normal 7.35-7.45 [facility] Comment on above: Performed By: #### P TT, CK, BMP, CKMB, CBC, PT, HS TROP, BNP #### [address] ABG PO2 14.5 mm[Hg] Off scale low 80.0-100.0 [facility] Comment on above: Performed By: #### P TT, CK, BMP, CKMB, CBC, PT, HS TROP, BNP #### [address] CO2 [Moles/Vol] 29.1 mmol/L High 23.0-27.0 [facility] Comment on above: Performed By: #### P TT, CK, BMP, CKMB, CBC, PT, HS TROP, BNP #### [facility] [address] [place] [address] HCO3 (Bld) [Moles/Vol] 27.7 mmol/L Normal 23.0-29.0 [facility] Comment on above: Performed By: #### P TT, CK, BMP, CKMB, CBC, PT, HS TROP, BNP #### [facility] [address] [place] [address] Respiratory Critical Normal [facility] Comment on above: Result Comment: Crit ical Value called on: 01/07/2021 at 17:55 PERFORMED BY: [place] [address] PATHOLOGIST [employer] ASHUTOSH NAVARRO M.D. Performed By: #### P TT, CK, BMP, CKMB, CBC, PT, HS TROP, BNP #### [facility] [address] [place] [address] VBG Draw Site Venous Normal [facility] Comment on above: Performed By: #### P TT, CK, BMP, CKMB, CBC, PT, HS TROP, BNP #### [facility] [address] [place] [address] Blood Cultureon 01-07-2021 Bacteria identified Cx Nom (Bld) NO GROWTH 5 DAYS PERFORMED BY: [place] [address] PATHOLOGIST [employer] ASHUTOSH NAVARRO M.D. [facility] Comment on above: Performed By: #### P TT, CK, BMP, CKMB, CBC, PT, HS TROP, BNP #### [facility] [address] [place] [address] COVID-19 Antigenon 1 COVID-19 Antigen Healthcare Worker?: N Ashley Reference Ashley Reference Negative SARS-CoV+SARS-CoV-2 (COVID-19) Ag [Presence] in Respiratory specimen by Rapid immunoassay Negative for SARS Antigen by DANNY COVID19 Blank Space -------- Ashley Disclaimer Negative results, from patients with symptom Ashley Disclaimer onset beyond five days, should be treated as Ashley Disclaimer presumptive and confirmation with a molecular Ashley Disclaimer assay, if necessary, for patient management, Ashley Disclaimer may be performed. Negative results do not rule Ashley Disclaimer out COVID-19 and should not be used as the sole Ashley Disclaimer basis for treatment or patient management Ashley Disclaimer decisions, including infection control decisions. Ashley Disclaimer Negative results should be considered in the Ashley Disclaimer context of a patient's recent exposures, history Ashley Disclaimer and the presence of clinical signs and symptoms Ashley Disclaimer consistent with COVID-19. COVID19 Blank Space -------- Ashley Disclaimer The Ashley SARS Antigen DANNY does not differentiate Ashley Disclaimer between SARS-CoV and SARS-CoV-2. COVID19 Blank Space -------- Ashley Disclaimer This test was developed and its performance Ashley Disclaimer characteristic determined by [employer] and Ashley Disclaimer validated at [facility]. This Ashley Disclaimer test has not been FDA cleared or approved. This Ashley Disclaimer test has been authorized by FDA under an Emergency Use Ashley Disclaimer Authorization (EUA). This test has been validated Ashley Disclaimer in accordance with the FDA's Guidance Document (Policy Ashley Disclaimer for Diagnostics Testing in Laboratories Certified to Ashley Disclaimer Perform High Complexity Testing under CLIA prior to Ashley Disclaimer Emergency Use Authorization for Coronavirus Ashley Disclaimer isease2019 during the Public Health Emergency) Ashley Disclaimer issued on May 15, 2019. This test is only authorized Ashley Disclaimer for the duration of time the declaration that Ashley Disclaimer circumstances exist justifying the authorization of Ashley Disclaimer the emergency use of in vitro diagnostic tests for Ashley Disclaimer detection of SARS-CoV-2 virus and/or diagnosis of Ashley Disclaimer COVID-19 infection under section 564(b)(1) of the Ashley Disclaimer Act, 21 U.S.C. 360bbb-3(b)(1), unless the Ashley Disclaimer authorization is terminated or revoked sooner. PERFORMED BY: [place] [address] PATHOLOGIST [employer] O[employer] ASHUTOSH NAVARRO M.D. Normal [facility] Comment on above: Performed By: #### P TT, CK, BMP, CKMB, CBC, PT, HS TROP, BNP #### [address] COVID-19 [facility] 01-07-2021 SARS-CoV-2 (COVID-19) RNA LILLIE+probe Ql (Unsp spec) Negative Normal Negative [facility] Comment on above: Order Comment: Healt hcare Worker?: N Result Comment: Testing for SARS-CoV-2 by RT-PCR This test was developed and its performance characteristics determined by [employer] ([place]) and validated at the [facility]. This test has not been FDA cleared or approved. This test has been authorized by FDA under an Emergency Use Authorization (EUA). This test has been validated in accordance with the FDA's Guidance Document (Policy for Diagnostics Testing in Laboratories Certified to Perform High Complexity Testing under CLIA prior to Emergency Use Authorization for Coronavirus Disease-2019 during the Public Health Emergency) issued on May 15, 2019. This test is only authorized for the duration of time the declaration that circumstances exist justifying the authorization of the emergency use of in vitro diagnostic tests for detection of SARS-CoV-2 virus and/or diagnosis of COVID-19 infection under section 564(b)(1) of the Act, 21 U.S.C. 360bbb-3(b)(1), unless the authorization is terminated or revoked sooner. PERFORMED BY: [place] [address] PATHOLOGIST [employer] O[employer] ASHUTOSH NAVARRO M.D. Performed By: #### P TT, CK, BMP, CKMB, CBC, PT, HS TROP, BNP #### [address] Complete Blood Count Auto Di ffon 01-07-2021 Basophils (Bld) [#/Vol] 0.0 10*3/uL Normal 0.0-0.2 [facility] Comment on above: Result Comment: PERF ORMED BY: [place] [address] PATHOLOGIST [employer] ASHUTOSH NAVARRO M.D. Performed By: #### P TT, CK, BMP, CKMB, CBC, PT, HS TROP, BNP #### [address] Basophils/100 WBC (Bld) 0.9 % Normal . [facility] Comment on above: Performed By: #### P TT, CK, BMP, CKMB, CBC, PT, HS TROP, BNP #### [address] Eosinophils (Bld) [#/Vol] 0.0 10*3/uL Normal 0.0-0.45 [facility] Comment on above: Performed By: #### P TT, CK, BMP, CKMB, CBC, PT, HS TROP, BNP #### [address] Eosinophils/100 WBC (Bld) 0.5 % Normal . [facility] Comment on above: Performed By: #### P TT, CK, BMP, CKMB, CBC, PT, HS TROP, BNP #### [address] Erythrocyte distribution width (RBC) [Ratio] 12.8 % Normal 12.0-14.8 [facility] Comment on above: Performed By: #### P TT, CK, BMP, CKMB, CBC, PT, HS TROP, BNP #### [address] Hematocrit (Bld) [Volume fraction] 43.4 % Normal 38.8-50.0 [facility] Comment on above: Performed By: #### P TT, CK, BMP, CKMB, CBC, PT, HS TROP, BNP #### [address] Hemoglobin (Bld) [Mass/Vol] 14.8 g/dL Normal 13.0-17.0 [facility] Comment on above: Performed By: #### P TT, CK, BMP, CKMB, CBC, PT, HS TROP, BNP #### [address] Lymphocytes (Bld) [#/Vol] 1.2 10*3/uL Normal 1.00-4.8 [facility] Comment on above: Performed By: #### P TT, CK, BMP, CKMB, CBC, PT, HS TROP, BNP #### [address] Lymphocytes/100 WBC (Bld) 25.0 % Normal . [facility] Comment on above: Performed By: #### P TT, CK, BMP, CKMB, CBC, PT, HS TROP, BNP #### [address] MCH (RBC) [Entitic mass] 35.5 pg High 27.5-35.2 [facility] Comment on above: Performed By: #### P TT, CK, BMP, CKMB, CBC, PT, HS TROP, BNP #### [address] MCV (RBC) [Entitic vol] 103.9 fL High 83.5-101 [facility] Comment on above: Performed By: #### P TT, CK, BMP, CKMB, CBC, PT, HS TROP, BNP #### [address] Mean Corpuscular HGB Conc 34.1 g/dL Normal 32.5-35.6 [facility] Comment on above: Performed By: #### P TT, CK, BMP, CKMB, CBC, PT, HS TROP, BNP #### [address] Monocytes (Bld) [#/Vol] 0.3 10*3/uL Normal 0.0-0.8 [facility] Comment on above: Performed By: #### P TT, CK, BMP, CKMB, CBC, PT, HS TROP, BNP #### [address] Monocytes/100 WBC (Bld) 7.1 % Normal . [facility] Comment on above: Performed By: #### P TT, CK, BMP, CKMB, CBC, PT, HS TROP, BNP #### [address] Neutrophils (Bld) [#/Vol] 3.1 10*3/uL Normal 1.8-7.7 [facility] Comment on above: Performed By: #### P TT, CK, BMP, CKMB, CBC, PT, HS TROP, BNP #### [address] Neutrophils/100 WBC (Bld) 66.5 % Normal . [facility] Comment on above: Performed By: #### P TT, CK, BMP, CKMB, CBC, PT, HS TROP, BNP #### [place] [address] [place] Nucleated RBC/100 WBC (Bld) [Ratio] 0.2 % Normal 0-0.5 [facility] Comment on above: Performed By: #### P TT, CK, BMP, CKMB, CBC, PT, HS TROP, BNP #### [place] [address] [place] Platelet mean volume (Bld) [Entitic vol] 9.1 fL Normal 6.6-10.1 [facility] Comment on above: Performed By: #### P TT, CK, BMP, CKMB, CBC, PT, HS TROP, BNP #### [facility] [address] Platelets (Bld) [#/Vol] 112 10*3/uL Low 150-450 [facility] Comment on above: Performed By: #### P TT, CK, BMP, CKMB, CBC, PT, HS TROP, BNP #### [address] RBC (Bld) [#/Vol] 4.17 10*6/uL Normal 3.90-5.60 [facility] Comment on above: Performed By: #### P TT, CK, BMP, CKMB, CBC, PT, HS TROP, BNP #### [address] WBC (Bld) [#/Vol] 4.7 10*3/uL Normal 4.5-11.0 [facility] Comment on above: Performed By: #### P TT, CK, BMP, CKMB, CBC, PT, HS TROP, BNP #### [address] Comprehensive Metabolic Pane da 01-07-2021 Albumin [Mass/Vol] 2.6 g/dL Low 3.2-5.5 [facility] Comment on above: Performed By: #### P TT, CK, BMP, CKMB, CBC, PT, HS TROP, BNP #### [address] Albumin/Globulin [Mass ratio] 0.7 {ratio} Normal [facility] Comment on above: Performed By: #### P TT, CK, BMP, CKMB, CBC, PT, HS TROP, BNP #### [address] ALP [Catalytic activity/Vol] 83 U/L Normal 32-92 [facility] Comment on above: Performed By: #### P TT, CK, BMP, CKMB, CBC, PT, HS TROP, BNP #### [address] ALT [Catalytic activity/Vol] 23 U/L Normal 10-60 [facility] Comment on above: Performed By: #### P TT, CK, BMP, CKMB, CBC, PT, HS TROP, BNP #### [address] AST [Catalytic activity/Vol] 29 U/L Normal 10-42 [facility] Comment on above: Performed By: #### P TT, CK, BMP, CKMB, CBC, PT, HS TROP, BNP #### [address] Bilirubin [Mass/Vol] 0.9 mg/dL Normal 0.3-1.2 [facility] Comment on above: Performed By: #### P TT, CK, BMP, CKMB, CBC, PT, HS TROP, BNP #### [address] Calcium [Mass/Vol] 8.6 mg/dL Normal 8.2-10.2 [facility] Comment on above: Performed By: #### P TT, CK, BMP, CKMB, CBC, PT, HS TROP, BNP #### [address] Chloride [Moles/Vol] 90 mmol/L Low 95-114 [facility] Comment on above: Performed By: #### P TT, CK, BMP, CKMB, CBC, PT, HS TROP, BNP #### [address] CO2 [Moles/Vol] 26.3 mmol/L Normal 22.0-30.0 [facility] Comment on above: Performed By: #### P TT, CK, BMP, CKMB, CBC, PT, HS TROP, BNP #### [address] Creatinine [Mass/Vol] 1.00 mg/dL Normal 0.64-1.27 [facility] Comment on above: Performed By: #### P TT, CK, BMP, CKMB, CBC, PT, HS TROP, BNP #### [address] Creatinine Clr Calc Pharmacy 71.25 [facility] Comment on above: Performed By: #### P TT, CK, BMP, CKMB, CBC, PT, HS TROP, BNP #### [facility] [address] Estimated GFR ( Ofe > 60 [facility] Comment on above: Result Comment: GFR estimated reference range: According to KDOQI guidelines, <60 ml/min/1.73m2 is sufficient to diagnose a patient with chronic kidney disease. Performed By: #### P TT, CK, BMP, CKMB, CBC, PT, HS TROP, BNP #### [facility] [address] Estimated GFR (Non- Am > 60 [facility] Comment on above: Performed By: #### P TT, CK, BMP, CKMB, CBC, PT, HS TROP, BNP #### [facility] [address] Globulin (S) [Mass/Vol] 3.9 g/dL [facility] Comment on above: Performed By: #### P TT, CK, BMP, CKMB, CBC, PT, HS TROP, BNP #### [facility] [address] Glucose [Mass/Vol] 101 mg/dL High 70-100 [facility] Comment on above: Result Comment: [place] Glucose Reference Range is dependent on time and content of last meal. Glucose of more than 200 mg/dL in a nonstressed, ambulatory subject supports the diagnosis of Diabetes Mellitus. ADA recommended reference range Performed By: #### P TT, CK, BMP, CKMB, CBC, PT, HS TROP, BNP #### [facility] [address] Potassium [Moles/Vol] 2.3 mmol/L Off scale low 3.5-5.1 [facility] Comment on above: Result Comment: Crit ical value result called at 1709 on 01/07/21 Performed By: #### P TT, CK, BMP, CKMB, CBC, PT, HS TROP, BNP #### [address] Protein [Mass/Vol] 6.5 g/dL Normal 6.1-7.9 [facility] Comment on above: Performed By: #### P TT, CK, BMP, CKMB, CBC, PT, HS TROP, BNP #### [address] Sodium [Moles/Vol] 129 mmol/L Low 136-146 [facility] Comment on above: Performed By: #### P TT, CK, BMP, CKMB, CBC, PT, HS TROP, BNP #### [address] Urea nitrogen [Mass/Vol] 10 mg/dL Normal 9-23 [facility] Comment on above: Performed By: #### P TT, CK, BMP, CKMB, CBC, PT, HS TROP, BNP #### [address] Creatine Kinaseon 01-07-2021 CK [Catalytic activity/Vol] 29 U/L Normal 22-269 [facility] Comment on above: Performed By: #### P TT, CK, BMP, CKMB, CBC, PT, HS TROP, BNP #### [address] Creatinine Kinase MBon 01-07 CK.MB [Mass/Vol] 0.6 ng/mL Normal 0.6-6.3 [facility] Comment on above: Performed By: #### P TT, CK, BMP, CKMB, CBC, PT, HS TROP, BNP #### [address] CKMB Relative Index 2.0 % Normal 0.00-2.50 [facility] Comment on above: Performed By: #### P TT, CK, BMP, CKMB, CBC, PT, HS TROP, BNP #### [address] D-Dimer High Sensitivityon 1 03-09-2020 D-Dimer High Sensitivity 541 ng/mL High 0-243 [facility] Comment on above: Result Comment: The reference range for D-dimer is <243 ng/mL D-dimer units. D-dimer results must be used in conjunction with a clinical pretest probability (PTP) assessment model for deep vein thrombosis (DVT) and pulmonary embolism (PE). Results <230 ng/mL d-dimer units can be used as a negative predictor in patients with low or moderate probability for DVT/PE. Results above the exclusion threshold of 230 ng/ml D-dimer units for DVT/PE may indicate the need for further diagnostic testing. D-Dimer can be increased in hospitalized patients due to co-morbid conditions. PERFORMED BY: [place] [address] PATHOLOGIST [employer] ASHUTOSH NAVARRO M.D. Performed By: #### P TT, CK, BMP, CKMB, CBC, PT, HS TROP, BNP #### [facility] [address] [place] [address] [place] Dipstick and Microscopicon 1 03-09-2020 Appearance (U) Clear Normal Clear [facility] Comment on above: Order Comment: Name Collection Type:: Clean-Voided Midstream Performed By: #### P TT, CK, BMP, CKMB, CBC, PT, HS TROP, BNP #### [facility] [address] [place] [address] Bacteria,Urine None Seen Normal None Seen [facility] Comment on above: Order Comment: Name Collection Type:: Clean-Voided Midstream Performed By: #### P TT, CK, BMP, CKMB, CBC, PT, HS TROP, BNP #### [place] [address] [place] Bilirubin,Urine Negative Normal Negative [facility] Comment on above: Order Comment: Name Collection Type:: Clean-Voided Midstream Performed By: #### P TT, CK, BMP, CKMB, CBC, PT, HS TROP, BNP #### [address] Color (U) [place] Critically abnormal Yellow [facility] Comment on above: Order Comment: Name Collection Type:: Clean-Voided Midstream Performed By: #### P TT, CK, BMP, CKMB, CBC, PT, HS TROP, BNP #### [facility] [address] [place] [address] Glucose Ql (U) Normal Normal Normal [facility] Comment on above: Order Comment: Name Collection Type:: Clean-Voided Midstream Performed By: #### P TT, CK, BMP, CKMB, CBC, PT, HS TROP, BNP #### [address] Hyaline Casts,Urine None Seen Normal 0-8 [facility] Comment on above: Order Comment: Name Collection Type:: Clean-Voided Midstream Result Comment: PERF ORMED BY: [place] [address] PATHOLOGIST [employer] ASHUTOSH NAVARRO M.D. Performed By: #### P TT, CK, BMP, CKMB, CBC, PT, HS TROP, BNP #### [address] Ketones Ql (U) Negative Normal Negative [facility] Comment on above: Order Comment: Name Collection Type:: Clean-Voided Midstream Performed By: #### P TT, CK, BMP, CKMB, CBC, PT, HS TROP, BNP #### [address] Leukocyte esterase Test strip Ql (U) Negative Normal Negative [facility] Comment on above: Order Comment: Name Collection Type:: Clean-Voided Midstream Performed By: #### P TT, CK, BMP, CKMB, CBC, PT, HS TROP, BNP #### [place] [address] [place] Nitrite,Urine Negative Normal Negative [facility] Comment on above: Order Comment: Name Collection Type:: Clean-Voided Midstream Performed By: #### P TT, CK, BMP, CKMB, CBC, PT, HS TROP, BNP #### [address] Occult Blood,Urine Negative Normal Negative [facility] Comment on above: Order Comment: Name Collection Type:: Clean-Voided Midstream Result Comment: PERF ORMED BY: [place] [address] PATHOLOGIST [employer] ASHUTOSH NAVARRO M.D. Performed By: #### P TT, CK, BMP, CKMB, CBC, PT, HS TROP, BNP #### [address] pH (U) 6.0 [pH] Normal 5.0-9.0 [facility] Comment on above: Order Comment: Name Collection Type:: Clean-Voided Midstream Performed By: #### P TT, CK, BMP, CKMB, CBC, PT, HS TROP, BNP #### [address] Protein,Urine Negative Normal Negative [facility] Comment on above: Order Comment: Name Collection Type:: Clean-Voided Midstream Performed By: #### P TT, CK, BMP, CKMB, CBC, PT, HS TROP, BNP #### [address] RBC LM.HPF (Urine sed) [#/Area] 0 /[HPF] Normal 0-4 [facility] Comment on above: Order Comment: Name Collection Type:: Clean-Voided Midstream Performed By: #### P TT, CK, BMP, CKMB, CBC, PT, HS TROP, BNP #### [address] Specificy [place],Urine 1.008 Normal 1.001-1.030 [facility] Comment on above: Order Comment: Name Collection Type:: Clean-Voided Midstream Performed By: #### P TT, CK, BMP, CKMB, CBC, PT, HS TROP, BNP #### [address] Squamous Epithelial Cell,Urine 0-1 Normal 0-2 [facility] Comment on above: Order Comment: Name Collection Type:: Clean-Voided Midstream Performed By: #### P TT, CK, BMP, CKMB, CBC, PT, HS TROP, BNP #### [address] [place] [address] [place] Urobilinogen,Urine Normal Normal Normal [facility] Comment on above: Order Comment: Name Collection Type:: Clean-Voided Midstream Performed By: #### P TT, CK, BMP, CKMB, CBC, PT, HS TROP, BNP #### [facility] [address] WBC LM.HPF (Urine sed) [#/Area] 0 /[HPF] Normal 0-4 [facility] Comment on above: Order Comment: Name Collection Type:: Clean-Voided Midstream Performed By: #### P TT, CK, BMP, CKMB, CBC, PT, HS TROP, BNP #### [facility] [address] ECG 12 lead ECGon 01-07-2021 ECG 12 lead ECG [facility] [place] [address] [place] [address] Electrocardiograph Report Signed Patient: Lemuel Rhodes MR#: [id number] : 1965 Acct:[id number] Age/Sex: 55 / M ADM Date: 01/07/21 Loc: ER Room: Type: [facility] ER Attending Dr: Ordering Provider: Maria D Andrea MD Date of Service: 01/07/21 ECG/ECG 12 lead ECG: Extremity Injury, Lower Copies to: Test Reason : Blood Pressure : / mmHG Vent. Rate : 071 BPM Atrial Rate : 071 BPM P-R Int : 210 ms QRS Dur : 104 ms QT Int : 390 ms P-R-T Axes : 077 096 256 degrees QTc Int : 423 ms Sinus rhythm with 1st degree AV block Right atrial enlargement Rightward axis Pulmonary disease pattern Septal infarct , age undetermined Abnormal ECG When compared with ECG of 04-NOV-2020 07:12, Nonspecific T wave abnormality has replaced inverted T waves in Lateral leads QT has shortened Confirmed by MARIA D ANDREA MD ([id number]) on 01/07/2021 7:34:31 PM Referred By: Electronically Signed By:MARIA D ANDREA MD Transcribed By: MUS Signed By Maria D Andrea MD 12/14 Normal [facility] Erythrocyte Sedimentation Ra javon 01-07-2021 ESR (Bld) [Velocity] 8 mm/h Normal 0-19 [facility] Comment on above: Result Comment: PERF ORMED BY: [place] [address] PATHOLOGIST [employer] ASHUTOSH NAVARRO M.D. Performed By: #### P TT, CK, BMP, CKMB, CBC, PT, HS TROP, BNP #### [address] Glucose Poct Glucometerson 1 03-09-2020 Glucose [Mass/Vol] 90 mg/dL Normal [facility] Comment on above: Result Comment: [place] Glucose Reference Range is dependent on time and content of last meal. Glucose of more than 200 mg/dL in a nonstressed, ambulatory subject supports the diagnosis of Diabetes Mellitus. PERFORMED BY: [place] [address] PATHOLOGIST [employer] ASHUTOSH NAVARRO M.D. Performed By: #### P TT, CK, BMP, CKMB, CBC, PT, HS TROP, BNP #### [address] Lactic Acidon 01-07-2021 Lactate [Moles/Vol] 3.1 mmol/L Off scale high 0.5-2.2 [facility] Comment on above: Result Comment: Crit ical value result called at 1705 on 01/07/21 PERFORMED BY: [place] [address] PATHOLOGIST [employer] ASHUTOSH NAVARRO M.D. Performed By: #### P TT, CK, BMP, CKMB, CBC, PT, HS TROP, BNP #### [place] [id number] [facility] Magnesiumon 01-07-2021 Magnesium [Mass/Vol] 1.9 mg/dL Normal 1.6-2.6 [facility] Comment on above: Performed By: #### P TT, CK, BMP, CKMB, CBC, PT, HS TROP, BNP #### [facility] [address] [place] [address] Ashley Ag Negativeon 01-08-20 21 Ashley Ag Negative Negative Normal Negative [facility] Comment on above: Result Comment: This is a duplicate Ashley SARS Antigen (DANNY) result to be used for statistical tracking purpose only. PERFORMED BY: [place] [address] PATHOLOGIST [employer] ASHUTOSH NAVARRO M.D. Performed By: #### P TT, CK, BMP, CKMB, CBC, PT, HS TROP, BNP #### [address] Stool Occult Blood (Guaiac)o n 01-07-2021 Stool Occult Blood (Guaiac) Occult Blood Negative for Occult Blood by Guaiac Methodology Reference range = Negative PERFORMED BY: [place] [address] PATHOLOGIST [employer] ASHUTOSH NAVARRO M.D. Normal [facility] Comment on above: Performed By: #### P TT, CK, BMP, CKMB, CBC, PT, HS TROP, BNP #### [address] Thyroid Stimulating Hormoneo n 01-07-2021 TSH Qn 3.22 m[IU]/L Normal 0.45-5.33 [facility] Comment on above: Result Comment: PERF ORMED BY: [place] [address] PATHOLOGIST [employer] ASHUTOSH NAVARRO M.D. Performed By: #### P TT, CK, BMP, CKMB, CBC, PT, HS TROP, BNP #### [facility] [address] [place] [address] Troponin I High Sensitivityo n 01-07-2021 Troponin I High Sensitivity 4 pg/mL Normal 0-20 [facility] Comment on above: Result Comment: PERF ORMED BY: [place] [address] PATHOLOGIST [employer] ASHUTOSH NAVARRO M.D. Performed By: #### P TT, CK, BMP, CKMB, CBC, PT, HS TROP, BNP #### [place] [id number] [facility] XR chest 1V portableon 01-07 XR chest 1V portable [facility] [place] [address] [place] [address] XRay Report Signed Patient: Lemuel Rhodes MR#: [id number] : 1965 Acct:[id number] Age/Sex: 55 / M ADM Date: 01/07/21 Loc: Room: [address] [place] [address] Type: ADM IN Attending Dr: Balbina Vyas DO Ordering Provider: Maria D Andrea MD Date of Service: 01/07/21 XR/XR chest 1V portable: Extremity Injury, Lower Copies to: DO Maria D Villarreal MD XR chest 1V portable 01/07/2021 5:10 PM SIGNS AND SYMPTOMS: Hypotension, vomiting PROTOCOL: Frontal radiographs of the chest COMPARISON: 11/02/2020 FINDINGS: The trachea is midline. Atherosclerotic changes are present in the thoracic aorta. The heart and mediastinal structures are within normal limits. The lung parenchyma is clear. The bony thorax is intact. XR/XR chest 1V portable IMPRESSION: No acute cardiopulmonary pathology. Impression dictated by: Calin Cardoza M.D.01/07/2021 5:12 PM Dictation Location: [place] [address] Transcribed By: [facility] 01/07/211711 Dictated By: Calin Cardoza II, MD 01/07/211710 Signed By: 01/07/211711 [facility] CT ABD/PELV W CONon 01-07-20 CT ABD/PELV W CON EXAMINATION: CT ABD/PELV W CON HISTORY: Abdominal pain ; vomiting, 20 pound weight loss over one month COMPARISON: CT pelvis 02/25/2019 TECHNIQUE: Axial, Coronal, and Sagittal images were created with IV contrast. Dose reduction techniques were achieved by using automated exposure control and/or adjustment of mA and/or kV according to patient size and/or use of iterative reconstruction technique. FINDINGS: LUNG BASES: Mild emphysematous changes. No acute infiltrates. LIVER: No enlargement, atrophy, abnormal density, or significant focal lesion. BILIARY: No dilatation or calcification. PANCREAS: No lesion, fluid collection, ductal dilatation, or atrophy. SPLEEN: No enlargement or focal lesion. ADRENALS: No mass or enlargement. KIDNEYS: No mass, obstruction, or calcification. BOWEL/MESENTERY: Borderline mild wall thickening and slightly edematous appearance of the adkins of the colon throughout its length. Colon is relatively empty and not distended. Mild circumferential wall thickening of the proximal jejunum. AORTA/VASCULAR: No aneurysm or dissection. Marked atherosclerotic narrowing of the common femoral arteries bilaterally. Otherwise mild atherosclerotic disease of aorta and major branches. RETROPERITONEUM: No mass or adenopathy. LYMPH NODES: No adenopathy. URINARY BLADDER: No visible focal wall thickening, lesion, or calculus. PELVIC ORGANS: No visible mass. Pelvic organs appropriate for patient age. ABDOMINAL WALL: No mass or hernia. BONES: Prior left hip replacement. No bony lesion or fracture. OTHER: Negative. IMPRESSION: 1. Mild sequential wall thickening of the jejunum without surrounding inflammatory changes or bowel obstruction; inflammatory bowel disease? No comparison studies. 2. Mild circumferential wall thickening and slightly edematous appearance of the adkins throughout the length of the nondistended colon which is new since prior study; secondary to lack of distention versus mild colitis. 3. Marked atherosclerotic narrowing of the common femoral arteries bilaterally. Otherwise mild atherosclerotic disease of aorta and major branches. Electronically authenticated by: MAYI OVIEDO Date: 2021-01-06 10:33 Normal [facility] Falls Risk Screeningon 12-22 Fall risk assessment b) One or more fall s in the last year [facility] [facility] DO Work Phone: CBC AUTO DIFFon 12-14-2020 BASO # 0.0 103/ul Normal 0.0-0.1 [facility] Comment on above: Performed By: #### C BC #### [facility] [address] [place] [address] [address] Judi Sevilla Basophils/100 WBC (Bld) 0.8 % Normal 0.2-2.0 [facility] Comment on above: Performed By: #### C BC #### [facility] [address] [place] [address] [address] Judi Sevilla EO # 0.1 103/ul Normal 0.0-0.7 [facility] Comment on above: Performed By: #### C BC #### [facility] [address] [place] [address] Dr. Judi Sevilla Eosinophils/100 WBC (Bld) 1.4 % Normal 0.9-7.0 [facility] Comment on above: Performed By: #### C BC #### [facility] [address] [place] [address] Dr. Judi Sevilla Erythrocyte distribution width (RBC) [Ratio] 12.1 % Normal 11.0-15.0 [facility] Comment on above: Performed By: #### C BC #### [facility] [address] [place] [address] Dr. Judi Sevilla Hematocrit (Bld) [Volume fraction] 43.9 % Normal 42.0-54.0 [facility] Comment on above: Performed By: #### C BC #### [facility] [address] [place] [address] Dr. Judi Sevilla Hemoglobin (Bld) [Mass/Vol] 15.6 g/dL Normal 14.0-18.0 [facility] Comment on above: Performed By: #### C BC #### [facility] [address] [place] [address] Dr. Judi Sevilla IG # 0.01 10e3/ul Normal 0.00-0.03 [facility] Comment on above: Performed By: #### C BC #### [facility] [address] [place] [address] Dr. Judi Sevilla IG % 0.3 % Normal 0.0-0.5 [facility] Comment on above: Performed By: #### C BC #### [facility] [address] [place] [address] Dr. Judi Sevilla LYMPH # 0.9 103/ul Critically low 1.2-3.8 [facility] Comment on above: Performed By: #### C BC #### [facility] [address] [place] [address] Dr. Judi Sevilla Lymphocytes/100 WBC (Bld) 24.5 % Normal 20.5-60.0 [facility] Comment on above: Performed By: #### C BC #### [facility] [address] [place] [address] Dr. Judi Sevilla MANUAL DIFF REQ NO Normal [facility] Comment on above: Performed By: #### C BC #### [facility] [address] [place] [address] Dr. Judi Sevilla MCH (RBC) [Entitic mass] 36.4 pg Critically high 25.9-34.0 [facility] Comment on above: Performed By: #### C BC #### [facility] [address] [place] [address] Dr. Judi Sevilla MCHC (RBC) [Mass/Vol] 35.5 g/dL Critically high 29.9-35.2 [facility] Comment on above: Performed By: #### C BC #### [facility] [address] [place] [address] Dr. Judi Sevilla MCV (RBC) [Entitic vol] 102.6 fL Critically high 80.0-94.0 [facility] Comment on above: Performed By: #### C BC #### [facility] [address] [place] [address] Dr. Judi Sevilla MONO # 0.3 103/ul Normal 0.3-0.8 [facility] Comment on above: Performed By: #### C BC #### [facility] [address] [place] [address] Dr. Judi Sevilla Monocytes/100 WBC (Bld) 8.4 % Normal 1.7-12.0 [facility] Comment on above: Performed By: #### C BC #### [facility] [address] [place] [address] Dr. Judi Sevilla NEUT # 2.3 103/ul Normal 1.4-6.5 [facility] Comment on above: Performed By: #### C BC #### [facility] [address] [place] [address] [address] Judi Sevilla Neutrophils/100 WBC (Bld) 64.6 % Normal 43.0-75.0 [facility] Comment on above: Performed By: #### C BC #### [facility] [address] [place] [address] [address] Judi Sevilla Platelet mean volume (Bld) [Entitic vol] 10.7 fL Normal 9.5-13.5 [facility] Comment on above: Performed By: #### C BC #### [facility] [address] [place] [address] [address] Judi Sevilla PLT 106 103/ul Critically low 150-450 [facility] Comment on above: Performed By: #### C BC #### [facility] [address] [place] [address] Dr. Judi Sevilla RBC 4.28 106/ul Critically low 4.70-6.10 [facility] Comment on above: Performed By: #### C BC #### [facility] [address] [place] [address] [address] Judi Sevilla WBC 3.6 103/ul Critically low 4.0-11.0 [facility] Comment on above: Performed By: #### C BC #### [facility] [address] [place] [address] Dr. Judi Sevilla PROF 14(COMP METB)on 021 Albumin [Mass/Vol] 2.6 g/dL Critically low 3.5-5.0 [facility] Comment on above: Performed By: #### T SH, T4, CMP #### [facility] [address] [place] [address] [address] Judi Sevilla Albumin/Globulin [Mass ratio] 0.6 {ratio} Normal [facility] Comment on above: Performed By: #### T SH, T4, CMP #### [facility] [address] [place] [address] [address] Judi Sevilla ALP [Catalytic activity/Vol] 126 U/L Normal 38-126 [facility] Comment on above: Performed By: #### T SH, T4, CMP #### [facility] [address] [place] [address] [address] Judi Sevilla ALT [Catalytic activity/Vol] 41 U/L Normal 21-72 [facility] Comment on above: Performed By: #### T SH, T4, CMP #### [facility] [address] [place] [address] [address] Judi Sevilla Anion gap [Moles/Vol] 13.0 mmol/L Normal [facility] Comment on above: Performed By: #### T SH, T4, CMP #### [facility] [address] [place] [address] [address] Judi Sevilla AST [Catalytic activity/Vol] 60 U/L Critically high 17-59 [facility] Comment on above: Performed By: #### T SH, T4, CMP #### [facility] [address] [place] [address] [address] Judi Sevilla Bilirubin [Mass/Vol] 1.0 mg/dL Normal 0.2-1.3 [facility] Comment on above: Performed By: #### T SH, T4, CMP #### [facility] [address] [place] [address] [address] Judi Sevilla Calcium [Mass/Vol] 8.7 mg/dL Normal 8.4-10.2 [facility] Comment on above: Performed By: #### T SH, T4, CMP #### [facility] [address] [place] [address] [address] Judi Sevilla Chloride [Moles/Vol] 95 mmol/L Critically low 98-107 [facility] Comment on above: Performed By: #### T SH, T4, CMP #### [facility] [address] [place] [address] [address] Judi Sevilla CO2 [Moles/Vol] 27.8 mmol/L Normal 22.0-30.0 [facility] Comment on above: Performed By: #### T SH, T4, CMP #### [facility] [address] [place] [address] [address] Judi Sevilla Creatinine [Mass/Vol] 1.15 mg/dL Normal 0.66-1.25 [facility] Comment on above: Performed By: #### T SH, T4, CMP #### [facility] [address] [place] [address] Dr. Judi Sevilla EGFR-AF CANADIAN >60 Normal >=60 [facility] Comment on above: Performed By: #### T SH, T4, CMP #### [facility] [address] [place] [address] [address] Judi Sevilla EGFR-NON AF CANADIAN >60 Normal >=60 [facility] Comment on above: Performed By: #### T SH, T4, CMP #### [facility] [address] [place] [address] [address] Judi Sevilla Globulin (S) [Mass/Vol] 4.4 g/dL Normal [facility] Comment on above: Performed By: #### T SH, T4, CMP #### [facility] [address] [place] [address] Dr. Judi Sevilla Glucose [Mass/Vol] 101 mg/dL Normal 74-106 [facility] Comment on above: Performed By: #### T SH, T4, CMP #### [facility] [address] [place] [address] [address] Judi Sevilla Potassium [Moles/Vol] 3.8 mmol/L Normal 3.4-5.0 [facility] Comment on above: Performed By: #### T SH, T4, CMP #### [facility] [address] [place] [address] Dr. Judi Sevilla Protein [Mass/Vol] 7.0 g/dL Normal 6.1-8.2 [facility] Comment on above: Performed By: #### T SH, T4, CMP #### [facility] [address] [place] [address] Dr. Judi Sevilla Sodium [Moles/Vol] 132 mmol/L Critically low 137-145 [facility] Comment on above: Performed By: #### T SH, T4, CMP #### [facility] [address] [place] [address] Dr. Judi Sevilla Urea nitrogen [Mass/Vol] 6.0 mg/dL Critically low 9.0-20.0 [facility] Comment on above: Performed By: #### T SH, T4, CMP #### [facility] [address] [place] [address] Dr. Judi Sevilla Urea nitrogen/Creatinine [Mass ratio] 5.2 mg/mg Normal [facility] Comment on above: Performed By: #### T SH, T4, CMP #### [facility] [address] [place] [address] Dr. Judi Sevilla T4on 12-14-2020 T4 [Mass/Vol] 6.30 ug/dL Normal 5.53-11.00 [facility] Comment on above: Performed By: #### T SH, T4, CMP #### [facility] [address] [place] [address] Dr. Judi Sevilla TSHon 12-14-2020 TSH 3.802 uIU/mL Normal 0.470-4.680 [facility] Comment on above: Performed By: #### T SH, T4, CMP #### [facility] [address] [place] [address] Dr. Judi Sevilla TSH RANGE SEE BELOW Normal [facility] Comment on above: Result Comment: <0.3 4 UIU/ml HYPERTHYROID 0.34-5.60 UIU/ml EUTHYROID >5.60 UIU/ml HYPOTHYROID Performed By: #### T SH, T4, CMP #### [facility] [address] [place] [address] Dr. Judi Sevilla Basic Metabolic Panelon 10-14 Calcium [Mass/Vol] 7.7 mg/dL Low 8.2-10.2 [facility] Comment on above: Performed By: #### P TT, CK, BMP, CKMB, CBC, PT, HS TROP, BNP #### [facility] [facility] [address] [place] [address] [place] Chloride [Moles/Vol] 103 mmol/L Normal 95-114 [facility] Comment on above: Performed By: #### P TT, CK, BMP, CKMB, CBC, PT, HS TROP, BNP #### [facility] [address] CO2 [Moles/Vol] 24.9 mmol/L Normal 22.0-30.0 [facility] Comment on above: Performed By: #### P TT, CK, BMP, CKMB, CBC, PT, HS TROP, BNP #### [facility] [address] Creatinine [Mass/Vol] 0.85 mg/dL Normal 0.64-1.27 [facility] Comment on above: Performed By: #### P TT, CK, BMP, CKMB, CBC, PT, HS TROP, BNP #### [address] Creatinine Clr Calc Pharmacy 97.24 [facility] Comment on above: Result Comment: PERF ORMED BY: [place] [address] PATHOLOGIST [employer] ASHUTOSH NAVARRO M.D. Performed By: #### P TT, CK, BMP, CKMB, CBC, PT, HS TROP, BNP #### [address] Estimated GFR ( Ofe > 60 [facility] Comment on above: Result Comment: GFR estimated reference range: According to KDOQI guidelines, <60 ml/min/1.73m2 is sufficient to diagnose a patient with chronic kidney disease. Performed By: #### P TT, CK, BMP, CKMB, CBC, PT, HS TROP, BNP #### [address] Estimated GFR (Non- Am > 60 [facility] Comment on above: Performed By: #### P TT, CK, BMP, CKMB, CBC, PT, HS TROP, BNP #### [address] Glucose [Mass/Vol] 80 mg/dL Normal 70-100 [facility] Comment on above: Result Comment: [place] Glucose Reference Range is dependent on time and content of last meal. Glucose of more than 200 mg/dL in a nonstressed, ambulatory subject supports the diagnosis of Diabetes Mellitus. ADA recommended reference range Performed By: #### P TT, CK, BMP, CKMB, CBC, PT, HS TROP, BNP #### [address] Potassium [Moles/Vol] 3.2 mmol/L Low 3.5-5.1 [facility] Comment on above: Performed By: #### P TT, CK, BMP, CKMB, CBC, PT, HS TROP, BNP #### [address] Sodium [Moles/Vol] 135 mmol/L Low 136-146 [facility] Comment on above: Performed By: #### P TT, CK, BMP, CKMB, CBC, PT, HS TROP, BNP #### [address] Urea nitrogen [Mass/Vol] 2 mg/dL Low 9-23 [facility] Comment on above: Performed By: #### P TT, CK, BMP, CKMB, CBC, PT, HS TROP, BNP #### [address] Complete Blood Count Auto Di ffon 11-04-2020 Basophils (Bld) [#/Vol] 0.0 10*3/uL Normal 0.0-0.2 [facility] Comment on above: Result Comment: PERF ORMED BY: [place] [address] PATHOLOGIST [employer] ASHUTOSH NAVARRO M.D. Performed By: #### P TT, CK, BMP, CKMB, CBC, PT, HS TROP, BNP #### [address] Basophils/100 WBC (Bld) 0.7 % Normal . [facility] Comment on above: Performed By: #### P TT, CK, BMP, CKMB, CBC, PT, HS TROP, BNP #### [address] Eosinophils (Bld) [#/Vol] 0.0 10*3/uL Normal 0.0-0.45 [facility] Comment on above: Performed By: #### P TT, CK, BMP, CKMB, CBC, PT, HS TROP, BNP #### [address] Eosinophils/100 WBC (Bld) 0.6 % Normal . [facility] Comment on above: Performed By: #### P TT, CK, BMP, CKMB, CBC, PT, HS TROP, BNP #### [address] Erythrocyte distribution width (RBC) [Ratio] 15.1 % High 12.0-14.8 [facility] Comment on above: Performed By: #### P TT, CK, BMP, CKMB, CBC, PT, HS TROP, BNP #### [address] Hematocrit (Bld) [Volume fraction] 35.2 % Low 38.8-50.0 [facility] Comment on above: Performed By: #### P TT, CK, BMP, CKMB, CBC, PT, HS TROP, BNP #### [address] Hemoglobin (Bld) [Mass/Vol] 12.2 g/dL Low 13.0-17.0 [facility] Comment on above: Performed By: #### P TT, CK, BMP, CKMB, CBC, PT, HS TROP, BNP #### [address] Lymphocytes (Bld) [#/Vol] 0.8 10*3/uL Low 1.00-4.8 [facility] Comment on above: Performed By: #### P TT, CK, BMP, CKMB, CBC, PT, HS TROP, BNP #### [address] Lymphocytes/100 WBC (Bld) 26.4 % Normal . [facility] Comment on above: Performed By: #### P TT, CK, BMP, CKMB, CBC, PT, HS TROP, BNP #### [facility] [address] MCH (RBC) [Entitic mass] 37.5 pg High 27.5-35.2 [facility] Comment on above: Performed By: #### P TT, CK, BMP, CKMB, CBC, PT, HS TROP, BNP #### [address] MCV (RBC) [Entitic vol] 108.0 fL High 83.5-101 [facility] Comment on above: Performed By: #### P TT, CK, BMP, CKMB, CBC, PT, HS TROP, BNP #### [address] Mean Corpuscular HGB Conc 34.7 g/dL Normal 32.5-35.6 [facility] Comment on above: Performed By: #### P TT, CK, BMP, CKMB, CBC, PT, HS TROP, BNP #### [address] Monocytes (Bld) [#/Vol] 0.5 10*3/uL Normal 0.0-0.8 [facility] Comment on above: Performed By: #### P TT, CK, BMP, CKMB, CBC, PT, HS TROP, BNP #### [address] Monocytes/100 WBC (Bld) 14.0 % Normal . [facility] Comment on above: Performed By: #### P TT, CK, BMP, CKMB, CBC, PT, HS TROP, BNP #### [address] Neutrophils (Bld) [#/Vol] 1.9 10*3/uL Normal 1.8-7.7 [facility] Comment on above: Performed By: #### P TT, CK, BMP, CKMB, CBC, PT, HS TROP, BNP #### [address] Neutrophils/100 WBC (Bld) 58.3 % Normal . [facility] Comment on above: Performed By: #### P TT, CK, BMP, CKMB, CBC, PT, HS TROP, BNP #### [address] Nucleated RBC/100 WBC (Bld) [Ratio] 0.1 % Normal 0-0.5 [facility] Comment on above: Performed By: #### P TT, CK, BMP, CKMB, CBC, PT, HS TROP, BNP #### [address] Platelet mean volume (Bld) [Entitic vol] 8.3 fL Normal 6.6-10.1 [facility] Comment on above: Performed By: #### P TT, CK, BMP, CKMB, CBC, PT, HS TROP, BNP #### [address] Platelets (Bld) [#/Vol] 126 10*3/uL Low 150-450 [facility] Comment on above: Performed By: #### P TT, CK, BMP, CKMB, CBC, PT, HS TROP, BNP #### [address] RBC (Bld) [#/Vol] 3.26 10*6/uL Low 3.90-5.60 [facility] Comment on above: Performed By: #### P TT, CK, BMP, CKMB, CBC, PT, HS TROP, BNP #### [address] WBC (Bld) [#/Vol] 3.2 10*3/uL Low 4.5-11.0 [facility] Comment on above: Performed By: #### P TT, CK, BMP, CKMB, CBC, PT, HS TROP, BNP #### [address] ECG 12 lead ECGon 11-04-2020 ECG 12 lead ECG [facility] [place] [address] [place] [address] Electrocardiograph Report Signed Patient: Lemuel Rhodes MR#: [id number] : 1965 Acct:[id number] Age/Sex: 55 / M ADM Date: 11/02/20 Loc: Room: [address] [place] [address] Type: ADM IN Attending Dr: Rio Napier DO Ordering Provider: Rio Napier DO Date of Service: 11/04/20 ECG/ECG 12 lead ECG: inflat stemi Copies to: Test Reason : Blood Pressure : / mmHG Vent. Rate : 066 BPM Atrial Rate : 066 BPM P-R Int : 186 ms QRS Dur : 092 ms QT Int : 586 ms P-R-T Axes : 080 088 246 degrees QTc Int : 614 ms Poor data quality, interpretation may be adversely affected Normal sinus rhythm Poor anterior R wave progression Prolonged QT Abnormal ECG When compared with ECG of 03-NOV-2020 07:15, T wave inversion more evident in Inferior leads T wave inversion more evident in Lateral leads Confirmed by IGNACIO STILL MD ([id number]) on 11/04/2020 11:19:40 AM Referred By: Electronically Signed By:IGNACIO STILL MD Transcribed By: MUS Signed By Ignacio Still MD [id number] [facility] Glucose Poct Glucometerson 0 11-04-2020 Commemt1 Glu2: Cleaned Meter Normal [facility] Comment on above: Result Comment: PERF ORMED BY: [place] [address] PATHOLOGIST [employer] ASHUTOSH NAVARRO M.D. Performed By: #### P TT, CK, BMP, CKMB, CBC, PT, HS TROP, BNP #### [address] Glucose [Mass/Vol] 82 mg/dL Normal [facility] Comment on above: Result Comment: [facility] Glucose Reference Range is dependent on time and content of last meal. Glucose of more than 200 mg/dL in a nonstressed, ambulatory subject supports the diagnosis of Diabetes Mellitus. Performed By: #### P TT, CK, BMP, CKMB, CBC, PT, HS TROP, BNP #### [facility] [address] [place] [address] [place] Commemt1 Glu2: Cleaned Meter Normal [facility] Comment on above: Result Comment: PERF ORMED BY: [place] [address] PATHOLOGIST [employer] ASHUTOSH NAVARRO M.D. Performed By: #### P TT, CK, BMP, CKMB, CBC, PT, HS TROP, BNP #### [address] Glucose [Mass/Vol] 84 mg/dL Normal [facility] Comment on above: Result Comment: [facility] Glucose Reference Range is dependent on time and content of last meal. Glucose of more than 200 mg/dL in a nonstressed, ambulatory subject supports the diagnosis of Diabetes Mellitus. Performed By: #### P TT, CK, BMP, CKMB, CBC, PT, HS TROP, BNP #### [address] Troponin I High Sensitivityo n 11-04-2020 Troponin I High Sensitivity 3296 pg/mL Off scale high 0-20 [facility] Comment on above: Result Comment: PERF ORMED BY: [place] [address] PATHOLOGIST [employer] ASHUTOSH NAVARRO M.D. Performed By: #### P TT, CK, BMP, CKMB, CBC, PT, HS TROP, BNP #### [address] Basic Metabolic Panelon 10-14 Calcium [Mass/Vol] 8.4 mg/dL Normal 8.2-10.2 [facility] Comment on above: Performed By: #### P TT, CK, BMP, CKMB, CBC, PT, HS TROP, BNP #### [address] Chloride [Moles/Vol] 99 mmol/L Normal 95-114 [facility] Comment on above: Performed By: #### P TT, CK, BMP, CKMB, CBC, PT, HS TROP, BNP #### [place] [id number] [place] CO2 [Moles/Vol] 23.9 mmol/L Normal 22.0-30.0 [facility] Comment on above: Performed By: #### P TT, CK, BMP, CKMB, CBC, PT, HS TROP, BNP #### [facility] [address] Creatinine [Mass/Vol] 0.95 mg/dL Normal 0.64-1.27 [facility] Comment on above: Performed By: #### P TT, CK, BMP, CKMB, CBC, PT, HS TROP, BNP #### [facility] [address] Creatinine Clr Calc Pharmacy 87.00 [facility] Comment on above: Result Comment: PERF ORMED BY: [place] [address] PATHOLOGIST [employer] ASHUTOSH NAVARRO M.D. Performed By: #### P TT, CK, BMP, CKMB, CBC, PT, HS TROP, BNP #### [facility] [address] Estimated GFR ( Ofe > 60 [facility] Comment on above: Result Comment: GFR estimated reference range: According to KDOQI guidelines, <60 ml/min/1.73m2 is sufficient to diagnose a patient with chronic kidney disease. Performed By: #### P TT, CK, BMP, CKMB, CBC, PT, HS TROP, BNP #### [address] Estimated GFR (Non- Am > 60 [facility] Comment on above: Performed By: #### P TT, CK, BMP, CKMB, CBC, PT, HS TROP, BNP #### [address] Glucose [Mass/Vol] 99 mg/dL Normal 70-100 [facility] Comment on above: Result Comment: [place] Glucose Reference Range is dependent on time and content of last meal. Glucose of more than 200 mg/dL in a nonstressed, ambulatory subject supports the diagnosis of Diabetes Mellitus. ADA recommended reference range Performed By: #### P TT, CK, BMP, CKMB, CBC, PT, HS TROP, BNP #### [address] Potassium [Moles/Vol] 3.7 mmol/L Normal 3.5-5.1 [facility] Comment on above: Performed By: #### P TT, CK, BMP, CKMB, CBC, PT, HS TROP, BNP #### [address] Sodium [Moles/Vol] 133 mmol/L Low 136-146 [facility] Comment on above: Performed By: #### P TT, CK, BMP, CKMB, CBC, PT, HS TROP, BNP #### [address] Urea nitrogen [Mass/Vol] 4 mg/dL Low 9-23 [facility] Comment on above: Performed By: #### P TT, CK, BMP, CKMB, CBC, PT, HS TROP, BNP #### [address] Complete Blood Count Auto Di ffon 11-03-2020 Basophils (Bld) [#/Vol] 0.0 10*3/uL Normal 0.0-0.2 [facility] Comment on above: Result Comment: PERF ORMED BY: [place] [address] PATHOLOGIST [employer] ASHUTOSH NAVARRO M.D. Performed By: #### P TT, CK, BMP, CKMB, CBC, PT, HS TROP, BNP #### [address] Basophils/100 WBC (Bld) 0.6 % Normal . [facility] Comment on above: Performed By: #### P TT, CK, BMP, CKMB, CBC, PT, HS TROP, BNP #### [address] Eosinophils (Bld) [#/Vol] 0.0 10*3/uL Normal 0.0-0.45 [facility] Comment on above: Performed By: #### P TT, CK, BMP, CKMB, CBC, PT, HS TROP, BNP #### [address] Eosinophils/100 WBC (Bld) 0.3 % Normal . [facility] Comment on above: Performed By: #### P TT, CK, BMP, CKMB, CBC, PT, HS TROP, BNP #### [address] Erythrocyte distribution width (RBC) [Ratio] 15.2 % High 12.0-14.8 [facility] Comment on above: Performed By: #### P TT, CK, BMP, CKMB, CBC, PT, HS TROP, BNP #### [address] Hematocrit (Bld) [Volume fraction] 43.6 % Normal 38.8-50.0 [facility] Comment on above: Performed By: #### P TT, CK, BMP, CKMB, CBC, PT, HS TROP, BNP #### [address] Hemoglobin (Bld) [Mass/Vol] 15.0 g/dL Normal 13.0-17.0 [facility] Comment on above: Performed By: #### P TT, CK, BMP, CKMB, CBC, PT, HS TROP, BNP #### [address] Lymphocytes (Bld) [#/Vol] 1.0 10*3/uL Normal 1.00-4.8 [facility] Comment on above: Performed By: #### P TT, CK, BMP, CKMB, CBC, PT, HS TROP, BNP #### [address] Lymphocytes/100 WBC (Bld) 16.6 % Normal . [facility] Comment on above: Performed By: #### P TT, CK, BMP, CKMB, CBC, PT, HS TROP, BNP #### [address] MCH (RBC) [Entitic mass] 37.1 pg High 27.5-35.2 [facility] Comment on above: Performed By: #### P TT, CK, BMP, CKMB, CBC, PT, HS TROP, BNP #### [facility] [address] MCV (RBC) [Entitic vol] 107.9 fL High 83.5-101 [facility] Comment on above: Performed By: #### P TT, CK, BMP, CKMB, CBC, PT, HS TROP, BNP #### [facility] [address] Mean Corpuscular HGB Conc 34.4 g/dL Normal 32.5-35.6 [facility] Comment on above: Performed By: #### P TT, CK, BMP, CKMB, CBC, PT, HS TROP, BNP #### [address] Monocytes (Bld) [#/Vol] 0.8 10*3/uL Normal 0.0-0.8 [facility] Comment on above: Performed By: #### P TT, CK, BMP, CKMB, CBC, PT, HS TROP, BNP #### [address] Monocytes/100 WBC (Bld) 12.7 % Normal . [facility] Comment on above: Performed By: #### P TT, CK, BMP, CKMB, CBC, PT, HS TROP, BNP #### [address] Neutrophils (Bld) [#/Vol] 4.1 10*3/uL Normal 1.8-7.7 [facility] Comment on above: Performed By: #### P TT, CK, BMP, CKMB, CBC, PT, HS TROP, BNP #### [address] Neutrophils/100 WBC (Bld) 69.8 % Normal . [facility] Comment on above: Performed By: #### P TT, CK, BMP, CKMB, CBC, PT, HS TROP, BNP #### [facility] [address] Nucleated RBC/100 WBC (Bld) [Ratio] 0.3 % Normal 0-0.5 [facility] Comment on above: Performed By: #### P TT, CK, BMP, CKMB, CBC, PT, HS TROP, BNP #### [facility] [address] Platelet mean volume (Bld) [Entitic vol] 8.3 fL Normal 6.6-10.1 [facility] Comment on above: Performed By: #### P TT, CK, BMP, CKMB, CBC, PT, HS TROP, BNP #### [address] Platelets (Bld) [#/Vol] 190 10*3/uL Normal 150-450 [facility] Comment on above: Performed By: #### P TT, CK, BMP, CKMB, CBC, PT, HS TROP, BNP #### [address] RBC (Bld) [#/Vol] 4.04 10*6/uL Normal 3.90-5.60 [facility] Comment on above: Performed By: #### P TT, CK, BMP, CKMB, CBC, PT, HS TROP, BNP #### [address] WBC (Bld) [#/Vol] 5.9 10*3/uL Normal 4.5-11.0 [facility] Comment on above: Performed By: #### P TT, CK, BMP, CKMB, CBC, PT, HS TROP, BNP #### [address] ECG 12 lead ECGon 11-03-2020 ECG 12 lead ECG [facility] [place] [address] [place] [address] Electrocardiograph Report Signed Patient: Lemuel Rhodes MR#: [id number] : 1965 Acct:[id number] Age/Sex: 55 / M ADM Date: 11/02/20 Loc: Room: [address] [place] [address] Type: ADM IN Attending Dr: Rio Napier DO Ordering Provider: Rio Napier DO Date of Service: 11/03/20 ECG/ECG 12 lead ECG: inflat stemi Copies to: Test Reason : Blood Pressure : / mmHG Vent. Rate : 068 BPM Atrial Rate : 068 BPM P-R Int : 162 ms QRS Dur : 096 ms QT Int : 448 ms P-R-T Axes : 055 084 131 degrees QTc Int : 476 ms Normal sinus rhythm Low voltage QRS Cannot rule out Anterior infarct , age undetermined T wave abnormality, consider inferolateral ischemia Abnormal ECG Compared to prior tracing of 02Nov2020, increased inferolateral STT wave abnormalities are noted Confirmed by IGNACIO STILL MD ([id number]) on 11/03/2020 11:50:54 AM Referred By: Electronically Signed By:IGNACIO STILL MD Transcribed By: MUS Signed By Ignacio Still MD 1150 [facility] echo transthoracicon [facility] echo transthoracic [facility] [place] [address] Echocardiogram Signed Patient: Lemuel Rhodes MR#: [id number] : 1965 Acct:[id number] Age/Sex: 55 / M ADM Date: 11/02/20 Loc: Room: [address] [place] [address] Type: ADM IN Attending Dr: Rio Napier DO Ordering Provider: Rio Napier DO Date of Service: 11/03/20 [facility] echo transthoracic: inflat stemi Copies to: DO Rio Valladares DO BSA: 1.9 m2 BP: 105/77 mmHg HR: 77 Reason For Study: inflat stemi History: COPD. GERD. HTN. HLD. NV. PCI. Smoker. Interpretation Summary The left ventricular size and thickness are normal. There is left ventricular diastolic dysfunction. There is moderate to severe lateral wall hypokinesis. Ejection Fraction = 45-50%. There is trace tricuspid regurgitation. There is no comparison study available. Procedure/Quality: A two-dimensional transthoracic echocardiogram with color flow and Doppler was performed. The study was technically fair in quality. Left Ventricle: The left ventricular size and thickness are normal. Ejection Fraction = 45-50%. There is left ventricular diastolic dysfunction. There is moderate to severe lateral wall hypokinesis. No left ventricular thrombus or mass is seen. Left Atrium: The left atrium appears normal in size. Right Atrium: The right atrium appears normal in size. Right Ventricle: The right ventricle is normal in size and function. Aortic Valve: The aortic valve is normal in structure and function. No hemodynamically significant valvular aortic stenosis. No aortic regurgitation is present. Mitral Valve: The mitral valve is normal. There is no mitral valve stenosis. There is no mitral regurgitation noted. Tricuspid Valve: The tricuspid valve is normal in structure and function. There is trace tricuspid regurgitation. Right ventricular systolic pressure is normal. Pulmonic Valve: The pulmonic valve is not well seen, but is grossly normal. Arteries: The aortic root is normal size. Pericardium/Pleura: No pericardial effusion seen. IVC/Hepatic Viens: The IVC is normal in size with an inspiratory collapse of greater then 50%, suggesting normal right atrial pressure. Measurements with Normals IVSd: 1.00 cm (0.7-1.1 cm)LVIDd: 4.2 cm (3.7-5.4 cm) LVPWd: 1.1 cm (0.7-1.1 cm)LVIDs: 2.3 cm (2.3-3.6 cm) LA dimension: 2.9 cm(2.3-4.0 cm)Ao root diam: 3.6 cm(2.0-3.2 cm) Doppler with Normals RVSP(TR): 28.0 mmHg (18-35mmHg) MV E max crystal: 56.6 cm/sec(0.8-1.3m/s) MMode/2D Measurements Calculations RVDd: 2.3 cm FS: 44.5 % Ao root area: LVLd ap4: 7.3 cm TAPSE: 1.4 cm EDV(Teich): 77.8 ml 10.2 cm2 EDV(MOD-sp4): RV S Crystal: ESV(Teich): 18.5 ml 79.8 ml 15.8 cm/sec EF(Teich): 76.2 % LVLs ap4: 6.5 cm ESV(MOD-sp4): 40.3 ml EF(MOD-sp4): 49.5 % __ SV(MOD-sp4): LAV(MOD-sp4): LA A2 area: 10.2 cm2 39.5 ml 7.3 ml LAV(MOD-sp2): LA A4 area: 4.8 cm2 23.5 ml LA length (vol): 2.6 cm LA vol: 15.9 ml LA vol index: 8.6 ml/m2 Doppler Measurements Calculations E/E' lat: 7.8 TV max P.0 mmHg TR max crystal: 249.8 cm/sec E/E' med: 7.7 TR max P.0 mmHg RAP systole: 3.0 mmHg Transcribed By: JAZIEL 11/03/20 115 Dictated By: Maria D Randhawa DO 11/03/20 0927 Signed By: 11/03/20 1157 [facility] Glucose Poct Glucometerson 0 11-03-2020 Commemt1 Glu2: Cleaned Meter Normal [facility] Comment on above: Result Comment: PERF ORMED BY: [place] [address] PATHOLOGIST [employer] ASHUTOSH NAVARRO M.D. Performed By: #### P TT, CK, BMP, CKMB, CBC, PT, HS TROP, BNP #### [address] Glucose [Mass/Vol] 95 mg/dL Normal [facility] Comment on above: Result Comment: [place] Glucose Reference Range is dependent on time and content of last meal. Glucose of more than 200 mg/dL in a nonstressed, ambulatory subject supports the diagnosis of Diabetes Mellitus. Performed By: #### P TT, CK, BMP, CKMB, CBC, PT, HS TROP, BNP #### [place] [address] [place] Commemt1 Glu2: Cleaned Meter Normal [facility] Comment on above: Result Comment: PERF ORMED BY: [place] [address] PATHOLOGIST [employer] ASHUTOSH NAVARRO M.D. Performed By: #### P TT, CK, BMP, CKMB, CBC, PT, HS TROP, BNP #### [address] Glucose [Mass/Vol] 108 mg/dL Normal [facility] Comment on above: Result Comment: [facility] Glucose Reference Range is dependent on time and content of last meal. Glucose of more than 200 mg/dL in a nonstressed, ambulatory subject supports the diagnosis of Diabetes Mellitus. Performed By: #### P TT, CK, BMP, CKMB, CBC, PT, HS TROP, BNP #### [address] Troponin I High Sensitivityo n 11-03-2020 Troponin I High Sensitivity 5560 pg/mL Off scale high 0-20 [facility] Comment on above: Result Comment: PERF ORMED BY: [place] [address] PATHOLOGIST [employer] ASHUTOSH NAVARRO M.D. Performed By: #### P TT, CK, BMP, CKMB, CBC, PT, HS TROP, BNP #### [address] Troponin I High Sensitivity 4349 pg/mL Off scale high 0-20 [facility] Comment on above: Result Comment: PERF ORMED BY: [place] [address] PATHOLOGIST [employer] ASHUTOSH NAVARRO M.D. Performed By: #### P TT, CK, BMP, CKMB, CBC, PT, HS TROP, BNP #### [place] [address] [place] Troponin I High Sensitivity 3045 pg/mL Off scale high 0-20 [facility] Comment on above: Result Comment: PERF ORMED BY: [place] [address] PATHOLOGIST [employer] ASHUTOSH NAVARRO M.D. Performed By: #### P TT, CK, BMP, CKMB, CBC, PT, HS TROP, BNP #### [address] B-Type Natriuretic Peptideon 11-02-2020 Natriuretic peptide B (Bld) [Mass/Vol] 93.0 pg/mL Normal 5-100 [facility] Comment on above: Result Comment: PERF ORMED BY: [place] [address] PATHOLOGIST [employer] ASHUTOSH NAVARRO M.D. Performed By: #### P TT, CK, BMP, CKMB, CBC, PT, HS TROP, BNP #### [address] Basic Metabolic Panelon 10-14 Calcium [Mass/Vol] 8.2 mg/dL Normal 8.2-10.2 [facility] Comment on above: Performed By: #### P TT, CK, BMP, CKMB, CBC, PT, HS TROP, BNP #### [address] Chloride [Moles/Vol] 97 mmol/L Normal 95-114 [facility] Comment on above: Performed By: #### P TT, CK, BMP, CKMB, CBC, PT, HS TROP, BNP #### [address] CO2 [Moles/Vol] 22.4 mmol/L Normal 22.0-30.0 [facility] Comment on above: Performed By: #### P TT, CK, BMP, CKMB, CBC, PT, HS TROP, BNP #### [address] Creatinine [Mass/Vol] 1.07 mg/dL Normal 0.64-1.27 [facility] Comment on above: Performed By: #### P TT, CK, BMP, CKMB, CBC, PT, HS TROP, BNP #### [facility] [address] Creatinine Clr Calc Pharmacy 75.32 [facility] Comment on above: Result Comment: PERF ORMED BY: [place] [address] PATHOLOGIST CRUDE OIL DRIVER ASHUTOSH NAVARRO M.D. Performed By: #### P TT, CK, BMP, CKMB, CBC, PT, HS TROP, BNP #### [facility] [address] Estimated GFR ( Ofe > 60 [facility] Comment on above: Result Comment: GFR estimated reference range: According to KDOQI guidelines, <60 ml/min/1.73m2 is sufficient to diagnose a patient with chronic kidney disease. Performed By: #### P TT, CK, BMP, CKMB, CBC, PT, HS TROP, BNP #### [address] Estimated GFR (Non- Am > 60 [facility] Comment on above: Performed By: #### P TT, CK, BMP, CKMB, CBC, PT, HS TROP, BNP #### [facility] [address] Glucose [Mass/Vol] 117 mg/dL High 70-100 [facility] Comment on above: Result Comment: [place] Glucose Reference Range is dependent on time and content of last meal. Glucose of more than 200 mg/dL in a nonstressed, ambulatory subject supports the diagnosis of Diabetes Mellitus. ADA recommended reference range Performed By: #### P TT, CK, BMP, CKMB, CBC, PT, HS TROP, BNP #### [facility] [address] Potassium [Moles/Vol] 3.2 mmol/L Low 3.5-5.1 [facility] Comment on above: Performed By: #### P TT, CK, BMP, CKMB, CBC, PT, HS TROP, BNP #### [facility] [address] Sodium [Moles/Vol] 134 mmol/L Low 136-146 [facility] Comment on above: Performed By: #### P TT, CK, BMP, CKMB, CBC, PT, HS TROP, BNP #### [facility] [address] Urea nitrogen [Mass/Vol] 5 mg/dL Low 9-23 [facility] Comment on above: Performed By: #### P TT, CK, BMP, CKMB, CBC, PT, HS TROP, BNP #### [facility] [address] COVID-19 FRon 11-02-2020 SARS-CoV-2 (COVID-19) RNA LILLIE+probe Ql (Unsp spec) Negative Normal Negative [facility] Comment on above: Order Comment: Healt hcare Worker?: N Result Comment: Testing for SARS-CoV-2 by RT-PCR This test was developed and its performance characteristics determined by [employer] ([employer]) and validated at the [facility]. This test has not been FDA cleared or approved. This test has been authorized by FDA under an Emergency Use Authorization (EUA). This test has been validated in accordance with the FDA's Guidance Document (Policy for Diagnostics Testing in Laboratories Certified to Perform High Complexity Testing under CLIA prior to Emergency Use Authorization for Coronavirus Disease-2019 during the Public Health Emergency) issued on May 15, 2019. This test is only authorized for the duration of time the declaration that circumstances exist justifying the authorization of the emergency use of in vitro diagnostic tests for detection of SARS-CoV-2 virus and/or diagnosis of COVID-19 infection under section 564(b)(1) of the Act, 21 U.S.C. 360bbb-3(b)(1), unless the authorization is terminated or revoked sooner. PERFORMED BY: [place] [address] PATHOLOGIST CRUDE OIL DRIVER ASHUTOSH NAVARRO M.D. Performed By: #### P TT, CK, BMP, CKMB, CBC, PT, HS TROP, BNP #### [address] Complete Blood Count Auto Di ffon 11-02-2020 Basophils (Bld) [#/Vol] 0.0 10*3/uL Normal 0.0-0.2 [facility] Comment on above: Result Comment: PERF ORMED BY: [place] [address] PATHOLOGIST [employer]UDE OIL DRIVER ASHUTOSH NAVARRO M.D. Performed By: #### P TT, CK, BMP, CKMB, CBC, PT, HS TROP, BNP #### [address] Basophils/100 WBC (Bld) 0.7 % Normal . [facility] Comment on above: Performed By: #### P TT, CK, BMP, CKMB, CBC, PT, HS TROP, BNP #### [address] Eosinophils (Bld) [#/Vol] 0.0 10*3/uL Normal 0.0-0.45 [facility] Comment on above: Performed By: #### P TT, CK, BMP, CKMB, CBC, PT, HS TROP, BNP #### [address] Eosinophils/100 WBC (Bld) 0.0 % Normal . [facility] Comment on above: Performed By: #### P TT, CK, BMP, CKMB, CBC, PT, HS TROP, BNP #### [address] Erythrocyte distribution width (RBC) [Ratio] 15.2 % High 12.0-14.8 [facility] Comment on above: Performed By: #### P TT, CK, BMP, CKMB, CBC, PT, HS TROP, BNP #### [address] Hematocrit (Bld) [Volume fraction] 41.1 % Normal 38.8-50.0 [facility] Comment on above: Performed By: #### P TT, CK, BMP, CKMB, CBC, PT, HS TROP, BNP #### [address] Hemoglobin (Bld) [Mass/Vol] 14.3 g/dL Normal 13.0-17.0 [facility] Comment on above: Performed By: #### P TT, CK, BMP, CKMB, CBC, PT, HS TROP, BNP #### [address] Lymphocytes (Bld) [#/Vol] 0.5 10*3/uL Low 1.00-4.8 [facility] Comment on above: Performed By: #### P TT, CK, BMP, CKMB, CBC, PT, HS TROP, BNP #### [address] Lymphocytes/100 WBC (Bld) 10.4 % Normal . [facility] Comment on above: Performed By: #### P TT, CK, BMP, CKMB, CBC, PT, HS TROP, BNP #### [address] MCH (RBC) [Entitic mass] 37.1 pg High 27.5-35.2 [facility] Comment on above: Performed By: #### P TT, CK, BMP, CKMB, CBC, PT, HS TROP, BNP #### [address] MCV (RBC) [Entitic vol] 106.5 fL High 83.5-101 [facility] Comment on above: Performed By: #### P TT, CK, BMP, CKMB, CBC, PT, HS TROP, BNP #### [address] Mean Corpuscular HGB Conc 34.8 g/dL Normal 32.5-35.6 [facility] Comment on above: Performed By: #### P TT, CK, BMP, CKMB, CBC, PT, HS TROP, BNP #### [address] Monocytes (Bld) [#/Vol] 0.5 10*3/uL Normal 0.0-0.8 [facility] Comment on above: Performed By: #### P TT, CK, BMP, CKMB, CBC, PT, HS TROP, BNP #### [place] [address] [place] Monocytes/100 WBC (Bld) 10.2 % Normal . [facility] Comment on above: Performed By: #### P TT, CK, BMP, CKMB, CBC, PT, HS TROP, BNP #### [address] Neutrophils (Bld) [#/Vol] 3.9 10*3/uL Normal 1.8-7.7 [facility] Comment on above: Performed By: #### P TT, CK, BMP, CKMB, CBC, PT, HS TROP, BNP #### [address] Neutrophils/100 WBC (Bld) 78.7 % Normal . [facility] Comment on above: Performed By: #### P TT, CK, BMP, CKMB, CBC, PT, HS TROP, BNP #### [address] Nucleated RBC/100 WBC (Bld) [Ratio] 0.1 % Normal 0-0.5 [facility] Comment on above: Performed By: #### P TT, CK, BMP, CKMB, CBC, PT, HS TROP, BNP #### [place] [address] [place] Platelet mean volume (Bld) [Entitic vol] 8.3 fL Normal 6.6-10.1 [facility] Comment on above: Performed By: #### P TT, CK, BMP, CKMB, CBC, PT, HS TROP, BNP #### [place] [address] [place] Platelets (Bld) [#/Vol] 192 10*3/uL Normal 150-450 [facility] Comment on above: Performed By: #### P TT, CK, BMP, CKMB, CBC, PT, HS TROP, BNP #### [address] [place] [address] [place] RBC (Bld) [#/Vol] 3.86 10*6/uL Low 3.90-5.60 [facility] Comment on above: Performed By: #### P TT, CK, BMP, CKMB, CBC, PT, HS TROP, BNP #### [address] WBC (Bld) [#/Vol] 5.0 10*3/uL Normal 4.5-11.0 [facility] Comment on above: Performed By: #### P TT, CK, BMP, CKMB, CBC, PT, HS TROP, BNP #### [address] Creatine Kinaseon 11-02-2020 CK [Catalytic activity/Vol] 57 U/L Normal 22-269 [facility] Comment on above: Performed By: #### P TT, CK, BMP, CKMB, CBC, PT, HS TROP, BNP #### [address] Creatinine Kinase MBon 11-02 CK.MB [Mass/Vol] 2.0 ng/mL Normal 0.6-6.3 [facility] Comment on above: Performed By: #### P TT, CK, BMP, CKMB, CBC, PT, HS TROP, BNP #### [address] CKMB Relative Index 3.5 % High 0.00-2.50 [facility] Comment on above: Performed By: #### P TT, CK, BMP, CKMB, CBC, PT, HS TROP, BNP #### [address] D-Dimer High Sensitivityon 0 11-02-2020 D-Dimer High Sensitivity 2923 ng/mL High 0-243 [facility] Comment on above: Result Comment: The reference range for D-dimer is <243 ng/mL D-dimer units. D-dimer results must be used in conjunction with a clinical pretest probability (PTP) assessment model for deep vein thrombosis (DVT) and pulmonary embolism (PE). Results <230 ng/mL d-dimer units can be used as a negative predictor in patients with low or moderate probability for DVT/PE. Results above the exclusion threshold of 230 ng/ml D-dimer units for DVT/PE may indicate the need for further diagnostic testing. D-Dimer can be increased in hospitalized patients due to co-morbid conditions. PERFORMED BY: [place] [address] PATHOLOGIST [employer]UDE OIL DRIVER ASHUTOSH NAVARRO M.D. Performed By: #### D DIMER #### [address] ECG 12 lead ECGon 11-02-2020 ECG 12 lead ECG [facility] [place] [address] [place] [address] Electrocardiograph Report Signed Patient: Lemuel Rhodes MR#: [id number] : 1965 Acct:[id number] Age/Sex: 55 / M ADM Date: 11/02/20 Loc: Room: [address] [place] [address] Type: ADM IN Attending Dr: Rio Napier DO Ordering Provider: Eduard Jaramillo DO Date of Service: 11/02/20 ECG/ECG 12 lead ECG: Chest Pain Copies to: Test Reason : Blood Pressure : 144/087 mmHG Vent. Rate : 083 BPM Atrial Rate : 083 BPM P-R Int : 166 ms QRS Dur : 094 ms QT Int : 422 ms P-R-T Axes : 080 084 076 degrees QTc Int : 495 ms Sinus rhythm with premature atrial complexes Prolonged QT Abnormal ECG No previous ECGs available Confirmed by EDUARD JARAMILLO DO ([id number]) on 11/03/2020 4:10:23 PM Referred By: Electronically Signed By:EDUARD JARAMILLO DO Transcribed By: MUS Signed By Eduard Jaramillo DO 11/03 Normal [facility] Partial Thromboplastin Timeo n 11-02-2020 aPTT Coag (Bld) [Time] 170.8 s Off scale high 25.1-36.5 [facility] Comment on above: Result Comment: Resu lts called at 1721 on 11/02/20 PERFORMED BY: [place] [address] PATHOLOGIST CRUDE OIL DRIVER ASHUTOSH NAVARRO M.D. Performed By: #### P TT, CK, BMP, CKMB, CBC, PT, HS TROP, BNP #### [place] [id number] [facility] Prothrombin Time INRon 11-02 INR Coag (PPP) [Relative time] 1.1 {INR} Normal [facility] Comment on above: Result Comment: INR Therapeutic Range A) Pre- and Peroperative OAT started two weeks before surgery. NOT HIP SURGERY: 1.5 - 2.5 HIP SURGERY: 2 - 3 B) Primary and secondary prevention of venous THROMBOSIS: 2 - 3 C) Active venous thrombosis, pulmonary embolism and prevention of recurrent venous thrombosis: 2 - 3 D) Prevention of arterial thromboembolism including patients with mechanical heart valves: 3 - 4.5 Performed By: #### P TT, CK, BMP, CKMB, CBC, PT, HS TROP, BNP #### [place] [id number] [facility] PT Coag (PPP) [Time] 11.9 s Normal 9.0-12.9 [facility] Comment on above: Performed By: #### P TT, CK, BMP, CKMB, CBC, PT, HS TROP, BNP #### [place] [id number] [facility] Troponin I High Sensitivityo n 11-02-2020 Troponin I High Sensitivity 66 pg/mL Off scale high 0-20 [facility] Comment on above: Result Comment: Crit ical value result called at 1715 on 11/02/20 PERFORMED BY: [address] [address] PATHOLOGIST CRUDE OIL DRIVER ASHUTOSH NAVARRO M.D. Performed By: #### P TT, CK, BMP, CKMB, CBC, PT, HS TROP, BNP #### [place] [id number] [facility] XR chest 1V portableon 11-02 XR chest 1V portable [facility] [place] [address] XRay Report Signed Patient: Lemuel Rhodes MR#: [id number] : 1965 Acct:[id number] Age/Sex: 55 / M ADM Date: 11/02/20 Loc: Room: Type: [facility] Attending Dr: Rio Napier DO Ordering Provider: Mandy Hawkins APRN Date of Service: 11/02/20 XR/XR chest 1V portable: Chest Pain Copies to: BARB Reid DO PORTABLE AP ERECT CHEST 1550 hours CLINICAL HISTORY: Chest pain since this morning. COMPARISON: None Large defibrillator pads overlie the central and upper left chest. There is incomplete inspiration. The heart is within normal limits. There is no vascular congestion. No consolidation is seen. There is no effusion or pneumothorax. The osseous structures are intact. XR/XR chest 1V portable IMPRESSION: NO ACUTE FINDINGS Impression dictated by: Kalpana Weeks M.D.11/02/2020 4:23 PM Dictation Location: [place] [address] Transcribed By: [facility] 11/02/201622 Dictated By: Kalpana Weeks MD 11/02/201621 Signed By: 11/02/201622 [facility] COMPREHENSIVE PANELon 2019 Albumin [Mass/Vol] 4.1 g/dL Normal 3.4 - 5.0 [facility] Comment on above: Performed By: #### C MP #### [address] [address] ALP [Catalytic activity/Vol] 84 U/L Normal 33 - 120 [facility] Comment on above: Performed By: #### C MP #### [address] [address] ALT [Catalytic activity/Vol] 10 U/L Normal 10 - 52 [facility] Comment on above: Result Comment: [place] ents treated with Sulfasalazine may generate falsely decreased results for ALT. Performed By: #### C MP #### [address] [address] Anion gap [Moles/Vol] 13 mmol/L Normal 10 - 20 [facility] Comment on above: Performed By: #### C MP #### [address] [address] AST [Catalytic activity/Vol] 18 U/L Normal 9 - 39 [facility] Comment on above: Performed By: #### C MP #### [address] [address] Bilirubin [Mass/Vol] 0.6 mg/dL Normal 0.0 - 1.2 [facility] Comment on above: Performed By: #### C MP #### [address] [address] Calcium [Mass/Vol] 9.6 mg/dL Normal 8.6 - 10.3 [facility] Comment on above: Performed By: #### C MP #### [address] [address] Chloride [Moles/Vol] 102 mmol/L Normal 98 - 107 [facility] Comment on above: Performed By: #### C MP #### [address] [address] Creatinine [Mass/Vol] 0.91 mg/dL Normal 0.50 - 1.30 [facility] Comment on above: Performed By: #### C MP #### [address] [address] GFR- AM. >60 Normal >60 [facility] Comment on above: Result Comment: CALC ULATIONS OF ESTIMATED GFR ARE PERFORMED USING THE MDRD STUDY EQUATION FOR THE IDMS-TRACEABLE CREATININE METHODS. CLIN CHEM 2007;53:766-72 Performed By: #### C MP #### [address] [address] GFR-NON AM. >60 Normal >60 [facility] Comment on above: Performed By: #### C MP #### [address] [address] Glucose [Mass/Vol] 72 mg/dL Low 74 - 99 [facility] Comment on above: Performed By: #### C MP #### [facility] [address] [place] [address] HCO3 (Bld) [Moles/Vol] 29 mmol/L Normal 21 - 32 [facility] Comment on above: Performed By: #### C MP #### [address] [address] Potassium [Moles/Vol] 3.9 mmol/L Normal 3.5 - 5.3 [facility] Comment on above: Performed By: #### C MP #### [address] [address] Protein [Mass/Vol] 7.2 g/dL Normal 6.4 - 8.2 [facility] Comment on above: Performed By: #### C MP #### [address] [address] Sodium [Moles/Vol] 140 mmol/L Normal 136 - 145 [facility] Comment on above: Performed By: #### C MP #### [address] [address] Urea nitrogen [Mass/Vol] 8 mg/dL Normal 6 - 23 [facility] Comment on above: Performed By: #### C MP #### [address] [address] LIPID PANEL (CORONARY RISK 2 )on 03-24-2019 Cholesterol [Mass/Vol] 204 mg/dL High 0 - 199 [facility] Comment on above: Result Comment: . AGE DESIRABLE BORDERLINE HIGH HIGH 0-19 Y 0 - 169 170 - 199 >/= 200 20-24 Y 0 - 189 190 - 224 >/= 225 >24 Y 0 - 199 200 - 239 >/= 240 All ranges are based on fasting samples. Specific therapeutic targets will vary based on patient-specific cardiac risk. . Pediatric guidelines reference:Pediatrics 2011, 128(S5). Adult guidelines reference: NCEP ATPIII Guidelines, [place] 2001, 258:2486-97 . Venipuncture immediately after or during the administration of Metamizole may lead to falsely low results. Testing should be performed immediately prior to Metamizole dosing. Performed By: #### L IPID #### [address] [address] Cholesterol in HDL [Mass/Vol] 96.0 mg/dL Normal [facility] Comment on above: Result Comment: . AGE VERY LOW LOW NORMAL HIGH 0-19 Y < 35 < 40 40-45 ---- 20-24 Y ---- < 40 >45 ---- >24 Y ---- < 40 40-60 >60 . Performed By: #### L IPID #### [address] [address] Cholesterol in LDL [Mass/Vol] 93 mg/dL Normal 0 - 99 [facility] Comment on above: Result Comment: . NEAR BORD AGE DESIRABLE OPTIMAL HIGH HIGH VERY HIGH 0-19 Y 0 - 109 --- 110-129 >/= 130 ---- 20-24 Y 0 - 119 --- 120-159 >/= 160 ---- >24 Y 0 - 99 100-129 130-159 160-189 >/=190 . Performed By: #### L IPID #### [address] [address] Cholesterol in VLDL [Mass/Vol] 15 mg/dL Normal 0 - 40 [facility] Comment on above: Performed By: #### L IPID #### [address] [address] Cholesterol.total/Ch olesterol in HDL [Mass ratio] 2.1 {ratio} Normal [facility] Comment on above: Result Comment: REF VALUES DESIRABLE < 3.4 HIGH RISK > 5.0 Performed By: #### L IPID #### [address] [address] Triglyceride [Mass/Vol] 77 mg/dL Normal 0 - 149 [facility] Comment on above: Result Comment: . AGE DESIRABLE BORDERLINE HIGH HIGH VERY HIGH 0 D-90 D 19 - 174 ---- ---- ---- 91 D- 9 Y 0 - 74 75 - 99 >/= 100 ---- 10-19 Y 0 - 89 90 - 129 >/= 130 ---- 20-24 Y 0 - 114 115 - 149 >/= 150 ---- >24 Y 0 - 149 150 - 199 200- 499 >/= 500 . Venipuncture immediately after or during the administration of Metamizole may lead to falsely low results. Testing should be performed immediately prior to Metamizole dosing. Performed By: #### L IPID #### [address] CARDIAC STRESS/REST INJE CTIONon 03-24-2019 [facility] CARDIAC STRESS/REST INJECTION Patient Name: LEMUEL RHODES STUDY: MYOCARDIAL PERFUSION STRESS TEST WITH EXERCISE Performing facility: [facility] Office Building, [address] [place] [address] [address] [id number] [facility] Provider: Maria D Fernandes DO PCP: Dr. Noble Fofana Supervising provider: Maria D Fernandes DO INDICATION: CAD; HISTORY: Gender: M; Age: 53 y/o ; Height: 176.53 cm; Weight: 77.427783 kg. High Cholesterol; HTN; [place]; COPD; CAD; Previous non ST elevated NV; Currently smoking. Cardiac catheterization on 04/2017. PTCA on 10/2010. COMPARISON: Previous nuclear testing completed on04/2017 at [facility]. ACCESSION NUMBER(S): [id number]; [id number]; [id number] ORDERING CLINICIAN: MARIA D FERNANDES TECHNIQUE: ONE DAY protocol. Stress injection: Date:03/24/2019, 35.8 mCi of Myoview IV at peak exercise. Rest injection: Date: 03/24/2019, 11.8 mCi of Myoview IV at rest. Imaging was performed by gated tomographic technique. STRESS TEST DATA: Resting heart rate was 76 BPM. Resting blood pressure was 120/74 mmHg. The patient exercised using a Pankaj exercise protocol. 6 minutes exercised. 89 % of MPHR achieved for age. 7 METS achieved. Maximum heart rate was 151 BPM. Maximum blood pressure was 160/80 mmHg. DTS +6. TEST TERMINATED DUE TO: Dyspnea Mild leg fatigue. FINDINGS: STRESS TEST RESULTS: Resting electrocardiogram revealed normal sinus rhythm, age indeterminate septal wall infarct. The patient had no significant ECG changes with maximal stress. The patient did not have chest pains/symptoms during the procedure. There was a normal recovery phase. There were no significant dysrhythmias. IMAGING RESULTS: Image quality was good. Rest and stress tomographic images were reviewed and revealed normal perfusion without evidence of ischemia, myocardial infarction, or left ventricular dilatation with stress. Overall left ventricular systolic function appeared to be normal without regional wall motion abnormalities. LV ejection fraction was 59 %. TID is 1.05 and is normal. There was evidence of diaphragmatic attenuation artifact. IMPRESSION: Normal exercise Myoview cardiac perfusion stress test. No evidence of ischemia or myocardial infarction by perfusion imaging. Normal left ventricular systolic function, ejection fraction 59%. No exercise provoked significant ischemic ECG changes or chest pain symptoms. Noninvasive risk stratification-low risk. Compared to previous exercise myocardial perfusion stress test April 19, 2017 there is interval change. The previous study reported mild anterior apical reversibility that is no longer present on the current study. Electronically signed by: MARIA D FERNANDES, DO Normal [facility] Basic Metabolic Panelon - Anion gap 3 molar conc 9 mmol/L Low 10-20 [facility] Comment on above: Performed By: #### 1 [id number] ####[facility] [address] [place] [address] Calcium mass conc 9.6 mg/dL Normal 8.6-10.3 [facility] Comment on above: Performed By: #### 1 [id number] ####[facility] [address] [place] [address] Chloride molar conc 106 mmol/L Normal 98-107 [facility] Comment on above: Performed By: #### 1 [id number] ####[facility] [address] [place] [address] Creatinine mass conc 0.89 mg/dL Normal 0.50-1.30 [facility] Comment on above: Performed By: #### 1 [id number] ####[facility] [address] [place] [address] GFR/1.73 sq M.predicted MDRD vol rate/area mL/min/{1.73_m2} Normal [facility] Comment on above: Result Comment: Inte rpretation for Chronic Kidney Disease:Stages 1&2 >60 Healthy or potential kidney damage.Mild decrease of GFR.Stage 3 30-59 Moderate decrease of GFR.Stage 4 15-29 Severe decrease of GFR.Stage 5 <15 Kidney failure or on dialysis. Performed By: #### 1 [id number] ####[facility] [address] [place] [address] Glucose mass conc 67 mg/dL Low 70-100 [facility] Comment on above: Performed By: #### 1 [id number] ####[facility] [address] [place] [address] HCO3 molar conc (Bld) 31 mmol/L Normal 21-32 [facility] Comment on above: Performed By: #### 1 [id number] ####[facility] [address] [place] [address] Potassium molar conc 4.3 mmol/L Normal 3.5-5.1 [facility] Healthcare Comment on above: Performed By: #### 1 [id number] ####[facility] [address] [place] [address] Sodium molar conc 142 mmol/L Normal 136-145 [facility] Healthcare Comment on above: Performed By: #### 1 [id number] ####[facility] [address] [place] [address] Urea nitrogen mass conc 9 mg/dL Normal 6-23 [facility] Comment on above: Performed By: #### 1 [id number] ####[facility] [address] [place] [address] Urea nitrogen/Creatinine mass ratio 10 mg/mg Normal 5-25 [facility] Comment on above: Performed By: #### 1 [id number] ####[facility] [address] [place] [address] CBCon 04-23-2017 Erythrocyte distribution width Auto Ratio (RBC) 13.2 % Normal 12.0-15.4 [facility] Healthcare Comment on above: Performed By: #### 2 [id number] ####[facility] [id number] [place] [address] Hematocrit Auto Volume Fraction (Bld) 47.5 % Normal 38.4-54.9 [facility] Healthcare Comment on above: Performed By: #### 2 [id number] ####[facility] [address] [place] [address] Hemoglobin mass conc (Bld) 16.2 g/dL Normal 12.8-17.7 [facility] Healthcare Comment on above: Performed By: #### 2 [id number] ####[facility] [address] [place] [address] MCH Auto Entitic mass (RBC) 35.2 pg High 27.5-32.9 [facility] Healthcare Comment on above: Performed By: #### 2 [id number] ####[facility] [address] [place] [address] MCHC Auto mass conc (RBC) 34.1 g/dL Normal 30.5-35.4 [facility] Healthcare Comment on above: Performed By: #### 2 [id number] ####[facility] [id number] [place] [address] MCV Auto Entitic volume (RBC) 103.3 fL High 83.3-98.2 [facility] Healthcare Comment on above: Performed By: #### [id number] ####[facility] [id number] [place] [id number] NRBC Absolute 0.00 10*3/uL Normal [facility] Healthcare Comment on above: Performed By: #### 2 [id number] ####[facility] [address] [place] [id number] NRBC Automated 0.0 /100{WBCs} Normal [facility] Healthcare Comment on above: Performed By: #### 2 [id number] ####[facility] [address] [place] [address] Platelet mean volume Auto Entitic volume (Bld) 10.0 fL Normal 9.9-12.1 [facility] Healthcare Comment on above: Performed By: #### 2 [id number] ####[facility] [address] [place] [address] Platelets Auto #/vol (Bld) 186 10*3/uL Normal 155-404 [facility] Healthcare Comment on above: Performed By: #### 2 [id number] ####[facility] [address] [place] [address] RBC Auto #/vol (Bld) 4.60 10*6/uL Normal 4.08-6.37 [facility] Comment on above: Performed By: #### 2 [id number] ####[facility] [address] [place] [address] RDW SD 50.2 fL High 39.3-48.6 [facility] Healthcare Comment on above: Performed By: #### 2 [id number] ####[facility] [address] [place] [address] WBC Auto #/vol (Bld) 8.0 10*3/uL Normal 4.2-11.0 [facility] Healthcare Comment on above: Performed By: #### 2 [id number] ####[facility] [address] [place] [address] Vital Signs Date Time Vital Sign Value Performing Clinician Herminia aleman 09-06-2023 13:15-0400 Blood Pressure Location Ignacio Quevedo [facility] 09-06-2023 13:15-0400 Diastolic blood pressure 82 mm[Hg] Ignacio Quevedo [facility] 09-06-2023 13:15-0400 Heart rate 110 /min Ignacio Quevedo [facility] 09-06-2023 13:15-0400 Respiratory rate 18 /min Ignacio Sae [facility] 09-06-2023 13:15-0400 SaO2% (BldA) [Mass fraction] 94 % Ignacio Quevedo [facility] 09-06-2023 13:15-0400 Systolic blood pressure 120 mm[Hg] Ignacio Quevedo [facility] 07-27-2023 14:23-0400 Blood Pressure Location Bob Wyman [facility] 07-27-2023 14:23-0400 Diastolic blood pressure 86 mm[Hg] Bob Wyman [facility] 07-27-2023 14:23-0400 Heart rate 94 /min Bob Wyman [facility] 07-27-2023 14:23-0400 SaO2% (BldA) [Mass fraction] 91 % Bob Wyman [facility] 07-27-2023 14:23-0400 Systolic blood pressure 132 mm[Hg] Bob Wyman [facility] 04-24-2022 14:18-0400 Heart rate 85 /min Goran P House Work Phone: [facility] 250 DO Work Phone: 04-24-2022 14:16-0400 Diastolic blood pressure 80 mm[Hg] Goran P House Work Phone: [facility] 250 DO Work Phone: 04-24-2022 14:16-0400 Systolic blood pressure 128 mm[Hg] Goran P House Work Phone: [facility] 250 DO Work Phone: 04-24-2022 14:12-0400 Body height 175.26 cm Goran P House Work Phone: [facility] 250 DO Work Phone: 04-24-2022 14:12-0400 Diastolic blood pressure 82 mm[Hg] Goran P House Work Phone: [facility] 250 DO Work Phone: 04-24-2022 14:12-0400 Systolic blood pressure 130 mm[Hg] Goran P House Work Phone: [facility] 250 DO Work Phone: 12-22-2020 10:51-0500 Body height 175.26 cm Goran P House Work Phone: [facility] 305 DO Work Phone: 12-22-2020 10:51-0500 Body mass index (BMI) [Ratio] 19.43 kg/m2 Goran P House Work Phone: [facility] 305 DO Work Phone: 12-22-2020 10:51-0500 Body surface area Derived from formula 1.73 m2 Goran P House Work Phone: [facility] 305 DO Work Phone: 12-22-2020 10:51-0500 Body weight 59.69 kg Goran P House Work Phone: [facility] 305 DO Work Phone: 12-22-2020 10:51-0500 Diastolic blood pressure 80 mm[Hg] Goran P House Work Phone: [facility] 305 DO Work Phone: 12-22-2020 10:51-0500 Heart rate 80 /min Goran P House Work Phone: [facility] 305 DO Work Phone: 12-22-2020 10:51-0500 Systolic blood pressure 110 mm[Hg] Goran P House Work Phone: [facility] 305 DO Work Phone: Encounters Encounter Date Encounter Type Care Provider Facility Start: 07-21-2024 ambulatory GORAN P HOUSE Facilit y:[facility] Start: 06-17-2024 ambulatory GORAN P HOUSE Facilit y:[facility] Start: 06-17-2024 ambulatory DO GORAN P HOUSE Faci lity:[facility] Start: 09-06-2023 End: 09-06-2023 ambulatory Ignacio Quevedo Facility:[facility] Start: 09-06-2023 End: 09-06-2023 Patient encounter procedure Ignacio Quevedo [facility] Start: 08-27-2023 End: 08-27-2023 ambulatory MD Jostin Shah Facility:[facility] Start: 08-27-2023 End: 08-27-2023 Patient encounter procedure Bob Wyman [facility] Start: 08-24-2023 End: 08-24-2023 ambulatory Bob Wyman Facility:[facility] Start: 08-24-2023 End: 08-24-2023 Patient encounter procedure Bob Wyman [facility] Start: 07-27-2023 End: 07-27-2023 ambulatory SELF REFERRAL Facility:[facility] Start: 07-27-2023 End: 07-27-2023 Patient encounter procedure Bob Wyman [facility] Start: 06-05-2023 ambulatory GORAN FOFANA Facilit y:[facility] Start: 05-17-2023 End: 05-18-2023 ambulatory YUMIKO VILLEGAS Not Available Start: 04-24-2022 Office outpatient visit 25 minutes Goran Fofana Work Phone: [facility] 250 DO Work Phone: Start: 04-24-2022 Patient encounter procedure Goran Fofana Work Phone: [facility] 250 DO Work Phone: Start: 04-24-[address] Goran Rocha se Facility: Start: 03-16-2022 Rx Renewal Goran cadena Work Phone: [facility] 250 DO Work Phone: Start: 12-11-2021 End: 12-11-2021 ambulatory CHRIS MEHTA Facility: Start: 01-25-2021 End: 01-26-[address] GORAN FOFANA Facility:[facility] Start: 01-10-[address] GORAN FOFANA Facili ty:[facility]1 Start: 01-05-2021 End: 01-06-[address] GORAN FOFANA Facility:[facility] Start: 12-30-2020 End: 12-30-2020 ambulatory CHRIS MEHTA Facility:[facility] Start: 12-24-2020 AUDIT Goran Ware e Work Phone: [facility] 305 DO Work Phone: Start: 12-22-2020 Office outpatient visit 25 minutes Goran Fofana Work Phone: [facility] 305 DO Work Phone: Start: 12-22-2020 Patient encounter procedure Goran Fofana Work Phone: [facility] 305 DO Work Phone: Start: 12-14-2020 End: 12-15-[address] GORAN FOFANA Facility:[facility]1 Start: 04-26-2017 End: 04-26-2017 Patient encounter procedure JUAN MENDEZ Facility:[facility] Start: 04-23-2017 Patient encounter procedure MARIA D FERNANDES Facility:7 Start: 04-19-2017 Patient encounter procedure MARIA D FERNANDES Facility:[id number] Procedures Date Procedure Procedure Detail Performing Clinician Bilateral carpal melissa hong syndrome (disorder) Bob Wyman Cardiac catheter (ph ysical object) Bob Wyman Cardiac catheterization Jennifer keshav Bethanie ALOSKO Work Phone: Decompression of med faby nerve Goran Kovacs ALOSKO Work Phone: Insertion of hip prosthesis Bob Wyman Operation on the ear Goran Kovacs ALOSKO Work Phone: Prosthetic arthropla sty of the hip Goran Kovacs ALOSKO Work Phone: Comment on above: LEFT; Total replacement of hip Mary Jane huber P ALOSKO Work Phone: Comment on above: LEFT; Plan of Treatment Date Care Activity Detail Author Start: 04-19-2023 FUV, Provider: Veronica Vilchis, Status: Pen, Time: 1:00 PM FUV, Provider: Veronica Vilchis, Status: Pen, Time: 1:[address] [facility] 250 DO Work Phone: Start: 04-06-2022 NPV, Provider: Veronica Vilchis, Status: Pen, Time: 2:00 PM NPV, Provider: Veronica Vilchis, Status: Pen, Time: 2:00 PM [facility] Work Phone: Start: 04-06-2021 FUV, Provider: Maria D Fernandes, Status: Pen, Time: 1:45 PM FUV, Provider: Maria D Fernandes, Status: Pen, Time: 1:45 PM [facility] Work Phone: Start: 01-27-2021 FUV, Provider: Maria D Fernandes, Status: Pen, Time: 11:00 AM FUV, Provider: Maria D Fernandes, Status: Pen, Time: 11:00 AM [facility] Work Phone: Immunizations Immunization Date Immunization Notes Care Provider Scott rosado NEGATED: Highlighted row has not occurred!02-18-2019 influenza virus vaccine, live, attenuated, for intranasal use Bob Wyman [facility] Payers Date Payer Category Payer Medicare [id number] 2017 Unknown 1965 Unknown [id number] .16.8 [id number] 1967 Unknown [id number] .16.8 [id number] 1967 Unknown [id number] .16.8 40.1.246252.3.579.2.355 1967 Unknown [id number] .16.84 0.1.093358.3.579.2.593 1967 Unknown [id number] 2.16.84 0.1.987367.3.579.2.593 1967 Unknown [id number] 2.16.84 0.1.015240.3.579.2.593 1967 Unknown [id number] 2.16.84 0.1.124014.3.579.2.593 1967 Unknown [id number] 2.16.84 0.1.327251.3.579.2.593 1967 Unknown [id number] 2.16.84 0.1.730276.3.579.2.593 1967 Unknown [id number] 2.16. 840.1.198436.3.579.2.356 1967 Unknown [id number] 2.16.84 0.1.177861.3.579.2.1259 1967 Unknown [id number] 2.16.84 0.1.854885.3.579.2.1259 1967 Unknown [id number] 2.16.8 40.1.227566.3.579.2.727 1967 Unknown [id number] 2.16.8 40.1.905270.3.579.2.727 1967 Unknown [id number] 2.16.8 40.1.012349.3.579.2.727 1967 Unknown [id number] 2.16.8 40.1.398397.3.579.2.727 1967 Unknown [id number] 2.16.8 40.1.603936.3.579.2.718 1967 Unknown [id number] 2.16.8 40.1.989189.3.579.2.718 1967 Unknown [id number] 2.16.8 40.1.467330.3.579.2.718 1959 Self-pay [id number] 1957 Unknown [id number] Unknown [id number] Social History Date Type Detail Facility Caffeine use Caffeine use -[facility] 305 DO Work Phone: Comment on above: 1-2 GLASSES QD; 4-5 BEERS QD; 15 BEERS QD; Start: 03-12-2019 End: 09-06-2023 Tobacco smoking status Heavy tobacco smoker (finding) [facility] Tobacco smoking status Never Sel[facility] Sex Assigned At Male [facility] Functional Status Date Assessment Result Facility 09-06-2023 Functional Status No [facility] 07-27-2023 Functional Status No [facility] Clinical Notes 10-23-2010 to 07-09-2024 LaboratoryLaboratoryRadiologyLaboratory Note Date & Type Note Facility 07-09-2024 Note Entered by ARTIE FOFANA DO on July 09, 2024 15:50:33 EDT From: GORAN FOFANA DO To: [facility]/pharmacy #[id number] Sent: 07/09/2024 15:50:33 EDT Subject: Medication Management Submitted: Complete:folic acid (folic acid 1 mg oral tablet) Signed by GORAN FOFANA DO 07/09/2024 15:50:00 EDT Submitted: Complete:levothyroxine (levothyroxine 75 mcg (0.075 mg) oral tablet) Signed by GORAN FOFANA DO 07/09/2024 15:50:00 EDT Approved with modifications: folic acid (FOLIC ACID 1 MG TABLET) TAKE 1 TABLET BY MOUTH EVERY DAY Qty: 90 tab(s) Days Supply: 90 Refills: 1 Substitutions Allowed Route To Pharmacy - [facility]/pharmacy #[id number] Approved with modifications: levothyroxine (LEVOTHYROXINE 75 MCG TABLET) TAKE 1 TABLET BY MOUTH EVERY DAY Qty: 90 tab(s) Days Supply: 90 Refills: 1 Substitutions Allowed Route To Pharmacy - [facility]/pharmacy #[id number] --------- From: [id number] To: GORAN FOFANA DO Sent: July 09, 2024 2:39:32 PM CDT Subject: Medication Management Due: July 10, 2024 12:03:49 AM CDT On Hold Pending Signature Dispensed Drug: folic acid (folic acid 1 mg oral tablet), TAKE 1 TABLET BY MOUTH EVERY DAY Quantity: 90 tab(s) Days Supply: 90 Refills: 1 Substitutions Allowed Notes from Pharmacy: On Hold Pending Signature Dispensed Drug: levothyroxine (levothyroxine 75 mcg (0.075 mg) oral tablet), TAKE 1 TABLET BY MOUTH EVERY DAY Quantity: 90 tab(s) Days Supply: 90 Refills: 1 Substitutions Allowed Notes from Pharmacy: --------- [facility] 06-25-2024 Note Entered by ARTIE FOFANA DO on June 25, 2024 07:21:31 EDT From: GORAN FOFANA DO To: [facility]/pharmacy #[id number] Sent: 06/25/2024 07:21:31 EDT Subject: Medication Management Submitted: Complete:fludrocortisone (fludrocortisone 0.1 mg oral tablet) Signed by GORAN FOFANA DO 06/25/2024 07:21:00 EDT Approved with modifications: fludrocortisone (FLUDROCORTISONE 0.1 MG TABLET) TAKE 1 TABLET BY MOUTH EVERY DAY Qty: 90 tab(s) Days Supply: 90 Refills: 1 Substitutions Allowed Route To Pharmacy - [facility]/pharmacy #[id number] --------- From: [id number] To: GORAN FOFANA DO Sent: June 24, 2024 11:27:50 PM CDT Subject: Medication Management Due: June 25, 2024 9:45:27 AM CDT On Hold Pending Signature Dispensed Drug: fludrocortisone (fludrocortisone 0.1 mg oral tablet), TAKE 1 TABLET BY MOUTH EVERY DAY Quantity: 90 tab(s) Days Supply: 90 Refills: 1 Substitutions Allowed Notes from Pharmacy: --------- [facility] 06-08-2024 Note Entered by ARTIE FOFANA DO on June 08, 2024 19:04:34 EDT From: GORAN FOFANA [id number] Sent: 06/08/2024 19:04:33 EDT Subject: Medication Management Submitted: Complete:albuterol (Albuterol (Eqv-Ventolin HFA) 90 mcg/inh inhalation aerosol) Signed by GORAN FOFANA DO 06/08/2024 19:04:00 EDT Approved with modifications: albuterol (ALBUTEROL HFA (PROAIR) INHALER) INHALE 2 PUFF(S) ONCE NEEDED FOR WHEEZING Qty: 8.5 EA Days Supply: 30 Refills: 5 Substitutions [id number] From: [facility] [id number] To: GORAN FOFANA DO Sent: June 08, 2024 1:31:29 PM CDT Subject: Medication Management Due: June 09, 2024 12:13:09 AM CDT On Hold Pending Signature Dispensed Drug: albuterol (Albuterol (Eqv-ProAir HFA) 90 mcg/inh inhalation aerosol), INHALE 2 PUFF(S) ONCE NEEDED FOR WHEEZING Quantity: 8.5 EA Days Supply: 30 Refills: 0 Substitutions Allowed Notes from Pharmacy: --------- [facility] 04-10-2024 Note Entered by ARTIE FOFANA DO on April 10, 2024 07:31:42 EST From: GORAN FOFANA DO To: [facility]/pharmacy #[id number] Sent: 04/10/2024 07:31:42 EST Subject: Medication Management Submitted: Complete:QUEtiapine (QUEtiapine 50 mg oral tablet) Signed by GORAN FOFANA DO 04/10/2024 07:31:00 EST Approved with modifications: QUEtiapine (QUETIAPINE FUMARATE 50 MG TAB) TAKE 1 TABLET BY MOUTH EVERY DAY Qty: 90 tab(s) Days Supply: 90 Refills: 1 Substitutions Allowed Route To Pharmacy - [facility]/pharmacy #[id number] --------- From: [id number] To: GORAN FOFANA DO Sent: April 10, 2024 1:43:50 AM [employer] Subject: Medication Management Due: April 11, 2024 12:03:10 AM [employer] On Hold Pending Signature Dispensed Drug: QUEtiapine (QUEtiapine 50 mg oral tablet), TAKE 1 TABLET BY MOUTH EVERY DAY Quantity: 90 tab(s) Days Supply: 90 Refills: 0 Substitutions Allowed Notes from Pharmacy: --------- [facility] 03-22-2024 Note Entered by ARTIE FOFANA DO on March 22, 2024 18:32:57 EST From: GORAN FOFANA DO To: [facility]/pharmacy #[id number] Sent: 03/22/2024 18:32:57 EST Subject: Medication Management Submitted: Complete:thiamine (Vitamin B1 100 mg oral tablet) Signed by GORAN FOFANA DO 03/22/2024 18:32:00 EST Submitted: Complete:multivitamin (Daily Otto oral tablet) Signed by GORAN FOFANA DO 03/22/2024 18:32:00 EST Submitted: Complete:atorvastatin (atorvastatin 80 mg oral tablet) Signed by GORAN FOFANA DO 03/22/2024 18:32:00 EST Approved multivitamin (DAILY-OTTO TABLET) TAKE 1 TABLET BY MOUTH EVERY DAY Qty: 90 tab(s) Days Supply: 90 Refills: 1 Substitutions Allowed Route To [facility]/pharmacy #[id number] Approved atorvastatin (ATORVASTATIN 80 MG TABLET) TAKE 1 TABLET BY MOUTH EVERY DAY Qty: 90 tab(s) Days Supply: 90 Refills: 1 Substitutions Allowed Route To [facility]/pharmacy #[id number] Approved thiamine (VITAMIN B-1 100 MG TABLET) TAKE 2 TABLETS BY MOUTH TWICE A DAY Qty: 360 tab(s) Days Supply: 90 Refills: 1 Substitutions Allowed Route To [facility]/pharmacy #[id number] --------- From: [facility] [id number] To: GORAN FOFANA DO Sent: March 22, 2024 8:54:00 AM [employer] Subject: Medication Management Due: March 23, 2024 12:22:31 AM [employer] On Hold Pending Signature Dispensed Drug: multivitamin (Daily Otto oral tablet), TAKE 1 TABLET BY MOUTH EVERY DAY Quantity: 90 tab(s) Days Supply: 90 Refills: 1 Substitutions Allowed Notes from Pharmacy: On Hold Pending Signature Dispensed Drug: atorvastatin (atorvastatin 80 mg oral tablet), TAKE 1 TABLET BY MOUTH EVERY DAY Quantity: 90 tab(s) Days Supply: 90 Refills: 1 Substitutions Allowed Notes from Pharmacy: On Hold Pending Signature Dispensed Drug: thiamine (Vitamin B1 100 mg oral tablet), TAKE 2 TABLETS BY MOUTH TWICE A DAY Quantity: 360 tab(s) Days Supply: 90 Refills: 1 Substitutions Allowed Notes from Pharmacy: --------- [facility] 03-03-2024 Note Entered by ARTIE FOFANA DO on March 03, 2024 16:44:31 EST From: GORAN FOFANA DO To: [facility]/pharmacy #[id number] Sent: 03/03/2024 16:44:31 EST Subject: Medication Management Approved with modifications: ferrous sulfate (FERROUS SULFATE 325 MG TABLET) TAKE 1 TABLET BY MOUTH EVERY DAY Qty: 90 tab(s) Days Supply: 90 Refills: 1 Substitutions Allowed Route To Pharmacy - [facility]/pharmacy #[id number] --------- From: [facility] STORE [id number] To: GORAN FOFANA DO Sent: March 02, 2024 11:22:25 PM [employer] Subject: Medication Management Due: March 03, 2024 12:20:01 AM [employer] On Hold Pending Signature Dispensed Drug: ferrous sulfate (ferrous sulfate 325 mg (65 mg elemental iron) oral tablet), TAKE 1 TABLET BY MOUTH EVERY DAY Quantity: 90 tab(s) Days Supply: 90 Refills: 1 Substitutions Allowed Notes from Pharmacy: --------- [facility] 01-14-2024 Note Entered by ARTIE FOFANA DO on January 14, 2024 07:35:47 EST From: GORAN FOFANA DO To: [facility]/pharmacy #[id number] Sent: 01/14/2024 07:35:47 EST Subject: Medication Management Submitted: Complete:levothyroxine (levothyroxine 75 mcg (0.075 mg) oral tablet) Signed by GORAN FOFANA DO 01/14/2024 07:35:00 EST Submitted: Complete:folic acid (folic acid 1 mg oral tablet) Signed by GORAN FOFANA DO 01/14/2024 07:35:00 EST Approved folic acid (FOLIC ACID 1 MG TABLET) TAKE 1 TABLET BY MOUTH EVERY DAY Qty: 90 tab(s) Days Supply: 90 Refills: 1 Substitutions Allowed Route To Pharmacy - [facility]/pharmacy #[id number] Approved levothyroxine (LEVOTHYROXINE 75 MCG TABLET) TAKE 1 TABLET BY MOUTH EVERY DAY Qty: 90 tab(s) Days Supply: 90 Refills: 1 Substitutions Allowed Route To Pharmacy - [facility]/pharmacy #[id number] --------- From: [email or web address] [id number] To: GORAN FOFANA DO Sent: January 10, 2024 11:42:30 PM [employer] Subject: Medication Management Due: January 11, 2024 12:04:57 AM [employer] On Hold Pending Signature Dispensed Drug: folic acid (folic acid 1 mg oral tablet), TAKE 1 TABLET BY MOUTH EVERY DAY Quantity: 90 tab(s) Days Supply: 90 Refills: 1 Substitutions Allowed Notes from Pharmacy: On Hold Pending Signature Dispensed Drug: levothyroxine (levothyroxine 75 mcg (0.075 mg) oral tablet), TAKE 1 TABLET BY MOUTH EVERY DAY Quantity: 90 tab(s) Days Supply: 90 Refills: 1 Substitutions Allowed Notes from Pharmacy: --------- [facility] 12-10-2023 Note Entered by ARTIE FOFANA DO on December 10, 2023 07:48:29 EDT From: GORAN FOFANA DO To: [facility]/pharmacy #[id number] Sent: 12/10/2023 07:48:29 EDT Subject: Medication Management Submitted: Complete:thiamine (Vitamin B1 100 mg oral tablet) Signed by GORAN FOFANA DO 12/10/2023 07:48:00 EDT Approved thiamine (VITAMIN B-1 100 MG TABLET) TAKE 2 TABLETS BY MOUTH TWICE A DAY Qty: 360 tab(s) Days Supply: 90 Refills: 1 Substitutions Allowed Route To Pharmacy - [facility]/pharmacy #[id number] --------- From: [email or web address] [id number] To: GORAN FOFANA DO Sent: December 08, 2023 9:50:20 AM CDT Subject: Medication Management Due: December 09, 2023 12:22:47 AM CDT On Hold Pending Signature Dispensed Drug: thiamine (Vitamin B1 100 mg oral tablet), TAKE 2 TABLETS BY MOUTH TWICE A DAY Quantity: 360 tab(s) Days Supply: 90 Refills: 1 Substitutions Allowed Notes from Pharmacy: --------- [facility] 11-29-2023 Note Entered by ARTIE FOFANA DO on November 29, 2023 07:31:28 EDT From: GORAN FOFANA DO [id number] Sent: 11/29/2023 07:31:28 EDT Subject: Medication Management Submitted: Complete:QUEtiapine (QUEtiapine 50 mg oral tablet) Signed by GORAN FOFANA DO 11/29/2023 07:31:00 EDT Approved QUEtiapine (QUETIAPINE FUMARATE 50 MG TAB) TAKE 1 TABLET BY MOUTH EVERY DAY Qty: 90 tab(s) Days Supply: 90 Refills: 0 Substitutions [id number] From: [facility] STORE [id number] To: GORAN FOFANA DO Sent: November 28, 2023 11:33:49 PM CDT Subject: Medication Management Due: November 29, 2023 12:15:57 PM CDT On Hold Pending Signature Dispensed Drug: QUEtiapine (QUEtiapine 50 mg oral tablet), TAKE 1 TABLET BY MOUTH EVERY DAY Quantity: 90 tab(s) Days Supply: 90 Refills: 0 Substitutions Allowed Notes from Pharmacy: --------- [facility] 11-28-2023 Note Entered by ARTIE FOFANA DO on November 28, 2023 07:27:32 EDT From: GORAN FOFANA DO [id number] Sent: 11/28/2023 07:27:32 EDT Subject: Medication Management Submitted: Complete:clopidogrel (clopidogrel 75 mg oral tablet) Signed by GORAN FOFANA DO 11/28/2023 07:27:00 EDT Submitted: Complete:fludrocortisone (fludrocortisone 0.1 mg oral tablet) Signed by GORAN FOFANA DO 11/28/2023 07:27:00 EDT Approved with modifications: clopidogrel (CLOPIDOGREL 75 MG TABLET) TAKE 1 TABLET BY MOUTH EVERY DAY Qty: 90 tab(s) Days Supply: 90 Refills: 1 Substitutions Allowed Route To Pharmacy - [facility]/pharmacy #[id number] Approved with modifications: fludrocortisone (FLUDROCORTISONE 0.1 MG TABLET) TAKE 1 TABLET BY MOUTH EVERY DAY Qty: 90 tab(s) Days Supply: 90 Refills: 1 Substitutions Allowed Route To Pharmacy - [facility]/pharmacy #[id number] --------- From: [id number] To: GORAN FOFANA DO Sent: November 27, 2023 11:41:54 PM CDT Subject: Medication Management Due: November 28, 2023 12:03:32 AM CDT On Hold Pending Signature Dispensed Drug: clopidogrel (clopidogrel 75 mg oral tablet), TAKE 1 TABLET BY MOUTH EVERY DAY Quantity: 90 tab(s) Days Supply: 90 Refills: 0 Substitutions Allowed Notes from Pharmacy: On Hold Pending Signature Dispensed Drug: fludrocortisone (fludrocortisone 0.1 mg oral tablet), TAKE 1 TABLET BY MOUTH EVERY DAY Quantity: 90 tab(s) Days Supply: 90 Refills: 0 Substitutions Allowed Notes from Pharmacy: --------- [facility] 10-16-2023 Note Entered by Leeanna Juan on October 16, 2023 11:58:12 EDT From: Leeanna Juan To: [facility]/pharmacy #[id number] Sent: 10/16/2023 11:58:12 EDT Subject: FW: Medication Management Submitted: Order:[employer] for Prescription ([facility] VITAMIN C 500 MG TABLET) See Instructions TAKE 1 TABLET BY MOUTH TWICE A DAY Qty: 180 tab(s) Days Supply: 90 Refills: 3 Substitutions Allowed Route To Pharmacy - [facility]/pharmacy #[id number] Signed by Leeanna Juan 10/16/2023 11:57:00 EDT Not Approved: New Rx to follow [employer] for Prescription ([facility] VITAMIN C 500 MG TABLET) TAKE 1 TABLET BY MOUTH TWICE A DAY Qty: 180 tab(s) Days Supply: 90 Refills: 3 Substitutions Allowed Route To Pharmacy - [facility]/pharmacy #[id number] Signed by Leeanna Juan Patient matched by Leeanna Juan on 10/16/2023 11:57:45 EDT From: GORAN FOFANA DO To: [facility] Clinical Pool ([facility]); Sent: 10/16/2023 11:55:54 EDT Subject: FW: Medication Management Due Date/Time: 10/17/2023 11:05:00 EDT --------- From: [id number] To: GORAN FOFANA DO Sent: October 16, 2023 10:05:01 AM CDT Subject: Medication Management Due: October 17, 2023 12:01:46 AM CDT On Hold Pending Signature Dispensed Drug: [facility] VITAMIN C 500 MG TABLET, TAKE 1 TABLET BY MOUTH TWICE A DAY Quantity: 180 tab(s) Days Supply: 90 Refills: 3 Substitutions Allowed Notes from Pharmacy: --------- [facility] 09-04-2023 Note - From: GORAN FOFANA DO To: [facility] Clinical Pool ([facility]); Sent: 09/04/2023 08:45:54 EDT Subject: FW: Medication Management Due Date/Time: 09/05/2023 08:31:00 EDT Caller Name: LEMUEL RHODES; Caller Number: Nova , M From: [id number] To: GORAN FOFANA DO Sent: September 04, 2023 7:31:53 AM CDT Subject: Medication Management Due: September 05, 2023 7:31:53 AM CDT Originally Prescribed Drug: Drug: FERROUS SULFATE 325 MG TABLET, TAKE 1 TABLET BY MOUTH EVERY DAY Quantity: 90 tab(s) Days Supply: 30 Refills: 0 Substitutions Allowed Notes from Pharmacy: REQUEST FOR 90 DAYS PRESCRIPTION. On Hold Pending Signature Preferred Alternative Drug: FERROUS SULFATE 325 MG TABLET, TAKE 1 TABLET BY MOUTH EVERY DAY Quantity: 90 tab(s) Days Supply: 90 Refills: 1 Substitutions Allowed Notes from Pharmacy: REQUEST FOR 90 DAYS PRESCRIPTION. From: Leeanna Juan To: [facility]/pharmacy #[id number] Sent: 09/04/2023 15:56:00 EDT Subject: FW: Medication Management Approved with modifications: Order:Durable Medical Equipment for Prescription (FERROUS SULFATE 325 MG TABLET) TAKE 1 TABLET BY MOUTH EVERY DAY Qty: 90 tab(s) Days Supply: 90 Refills: 1 Substitutions Allowed Route To Pharmacy - [id number] Note from Pharmacy: REQUEST FOR 90 DAYS PRESCRIPTION. Signed by Leeanna Juan Cancelled: Discontinue:ferrous sulfate (ferrous sulfate 325 mg (65 mg elemental iron) oral tablet) Signed by Leeanna Juan [facility] 08-27-2023 Note Echocardiology Procedure Exam Date/Time Accession # Ordering Dr. Biggs Transthoracic 08/27/2023 13:54 EDT [id number] Garo LOMAX, Bob Norris CPT code 13559 [id number] Reason for Exam (Echo Transthoracic Complete) I25.10;CAD Coronary artery disease Report [facility] [address] [place] [address] Adult Echocardiogram Report Name: LEMUEL RHODES Study Date: 08/27/2023 01:13 PM BP: 121/83 mmHg Patient Location: [facility] HR: 75 : 1965 Gender: Male Height: 70 in Age: 58 yrs Ethnicity: [facility] Weight: 181 lb Reason For Study: CAD Coronary artery disease BSA: 2.0 m2 History: Smoker-Yes,CAD,COPD,Stents Ordering Physician: Garo^Bob^Myrna Referring Physician: Bob Wyman Performed By: Macy Hernandez RDCS Interpretation Summary Left ventricular systolic function is normal. Ejection Fraction = 65-70%. Left Ventricular filling pattern is abnormal for age. No obvious regional wall motion abnormalities noted There is no pericardial effusion. Procedure A complete two-dimensional transthoracic echocardiogram was performed (2D, M-mode, spectral and color flow Doppler). Left Ventricle The left ventricle is normal in size. There is normal left ventricular wall thickness. Left ventricular systolic function is normal. Ejection Fraction = 65-70%. No obvious regional wall motion abnormalities noted. Left Ventricular filling pattern is abnormal for age. Left Atrium The left atrial size is normal. There is no atrial septal defect. Right Atrium Right atrial size is normal. Echocardiology Report Right Ventricle The right ventricular systolic function is normal. The right ventricle is normal size. Aortic Valve The trileaflet aortic valve opening is normal. No aortic regurgitation. There is no aortic stenosis. Mitral Valve The mitral valve is normal in structure and function. Tricuspid Valve Not well visualized. No evidence of tricuspid regurgitation. No evidence of tricuspid stenosis. Pulmonic Valve Not well visualized. There is no pulmonic valve regurgitation. Arteries The aortic root is normal in size. Venous The inferior vena cava is normal in size, and collapses normally with respiration. Effusion There is no pericardial effusion. MMode/2D Measurements & Calculations RVDd: 2.8 cm LVIDd: 5.0 cm FS: 30.6 % Ao root diam: 3.1 cm IVSd: 0.75 cm LVIDs: 3.4 cm EDV(Teich): 115.5 ml Ao root area: 7.7 cm2 LVPWd: 0.82 cm ESV(Teich): 48.7 ml LA dimension: 2.2 cm EF(Teich): 57.8 % LVOT diam: 2.1 cm LVLd ap4: 8.0 cm EDV(MOD-sp2): 109.0 ml SV(MOD-sp4): 76.4 ml LVOT area: 3.5 cm2 EDV(MOD-sp4): 111.0 ml ESV(MOD-sp2): 37.9 ml LVLs ap4: 6.0 cm EF(MOD-sp2): 65.2 % ESV(MOD-sp4): 34.6 ml EF(MOD-sp4): 68.8 % TAPSE: 2.3 cm IVC Diam: 1.5 cm RVIDd/LVIDd: 0.56 EF (MOD-bp): 67.7 % Doppler Measurements & Calculations MV E max crystal: 72.3 cm/sec MV dec time: 0.23 sec Ao V2 max: 138.8 cm/sec LV V1 max P.2 mmHg MV A max crystal: 93.2 cm/sec Ao max P.7 mmHg LV V1 max: 89.1 cm/sec MV E/A: 0.78 ROSALBA(V,D): 2.3 cm2 Lat Peak E' Crystal: 10.8 cm/sec E/E' Lat: 6.7 Med Peak E' Crystal: 7.8 cm/sec E/E' Med: 9.2 AV VR: 0.64 Echocardiology Report FINAL REPORT Dictated: 08/27/2023 1:13 pm Jostin Shah MD Signed (Electronic Signature): 08/27/2023 4:35 pm Signed by: Jostin Shah MD Transcribed by: SHERICE Technologist: BAILEY [facility] 12-13-2020 History of Present illness Narrative 56-year-old is accompanied by to the office. 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 Fernandes of [facility], last office visit December 2020 the results of which I have reviewed.Patient is examined in the wheelchair. He has chronic shortness of breath which is mostly explained on the basis of his COPD which is very apparent on physical examination. He is an ongoing smoker, although prior notes say that he did quit 2 years ago, his says that he continues to smoke patient attest to this, and has no intention to quit smoking, understands consequences. He also drinks on a regular basis, about 15 beers daily. 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 Fernandes.No recent laboratory data to review.Assessment:1.Hypertension- at target2. COPD-ongoing nicotine addiction3. Alcohol addiction4. Echo October 2020 LVEF 45 to 50%5. Hyperlipidemia6. [id number] history of smoking-continues to smoke7. Family history of brain cancer lung cancer pancreatic cancer8. EKG abnormalities-unchanged from prior9. Atherosclerotic [place] vessel coronary artery disease, non-ST elevation myocardial infarction and bare-metal stent in the left circumflex artery October 2010, presented with inferior ST elevation myocardial infarction at that time.10. Prior notes suggest that this patient has severe right common femoral artery stenosis.11. Perfusion imaging study March 2019-7 METS 89% age-predicted maximum heart rate baseline blood pressure 120/74 maximum blood pressure 160/80 Bustamante treadmill score +6 terminated due to shortness of breath and mild leg fatigue LVEF 59% transient ischemic dilatation 1.05 there was evidence of diaphragm attenuation [id number]. Echocardiogram 11/02/2020 LVEF 45 to 50% trace tricuspid regurgitation normal RV systolic pressure left atrial diameter 2.9 cm TAPSE 1.4 cm which is abnormal left atrial volume index 8.6 mL per metered squared RVSP was reported to be 25 mmHg13. Coronary angiography April 2017-left main 0% mid LAD 30% proximal circumflex 60% RCA 0% patent stent in the left circumflex artery LVEF 50% FFR of the circumflex stenosis 0.95 medical therapy recommended. LVEDP not available.Recommendations:Most of this visit was about risk factor modification, talked at length, was part of the discussion, patient has no motivation to modify any of the risk factors.Medications refilled by primary care.Patient is well aware that with alcohol and ongoing tobacco abuse, likelihood for worsening of LV function and future progression of atherosclerotic disease is very high.1 year follow-up with comprehensive profile and lipid profile prior to next visit. -[facility] Pat[facility] DO Work Phone: 10-23-2010 History of Present illness Narrative CHIEF COMPLAINT:DyspneaHISTORY OF PRESENT ILLNESS:The patient is a 55-year-old male, with past medical history significant for coronary arterydisease, status post non-ST elevation NV, status post bare metal stent, left circumflex, October 23, 2010, Inferior wall ST elevation myocardial infarction/drug-eluting stent left circumflex November 02, 2020, ischemic cardiomyopathy,hypertension, dyslipidemia, active tobacco abuse, COPD, who presents for follow up cardiovascular care.Patient required urgent coronary PCI after ST elevation myocardial infarction on November 02, 2020. Since then he has had increased dyspnea. He complains of fatigue. Denies chest pain, palpitations, nausea, vomiting. Occasional dizziness change in position. Denies near syncope, suyapa syncope, edema. He has some right lower extremity pain usually at rest. He was told he had severe right common femoral artery stenosis at time of cardiac catheterization.November 03, 2020 echo: EF 45-50%.April 14, 2020 labs: Total cholesterol 128, LDL 38, triglycerides 54.PAST MEDICAL HISTORY: As above, plus left eye blind vision loss,COPD, anxiety, gout, hypothyroid.PAST SURGICAL HISTORY:Left total hip replacement October 13OCIAL HISTORY: The patient is a smoker 1 to 1.5 packs of cigarettesper day for approximately 30 years, drinks 4 to 5 beers a day.FAMILY HISTORY: Brother with brain cancer, brother deceasedwith lung cancer, brother with pancreatic cancer. Motherhistory of lung cancer.REVIEW OF SYSTEMS: Have been reviewed and are negative.Noncontributory as previous mentioned x12 systems.I personally reviewed EKG August 25, 2020: Normal sinus rhythm, rightward axis, possible age-indeterminate anterior wall infarct. No significant change compared to previous EKG March 24, 2019.ASSESSMENT:Coronary artery disease, NSTEMI, BMS LCfx 10/23/10, STEMI inferolateral SERA LCfx 10/23/20Ischemic cardiomyopathy EF 45-50%Chronic systolic congestive heart failure near card association class II-IIIPeripheral vascular disease-severe right common femoral artery stenosisHypertension.Dyslipidemia .Active tobacco abuse.Chronic obstructive pulmonary disease.GoutHypothyroidRECOMMENDA TIONS:Patient has had increased dyspnea. There is a possibility Brilinta may increase his dyspnea. After he is complete his current Brilinta prescription will start Plavix 600 mg 12 hours after his last dose of Brilinta, then Plavix 75 mg daily. For management of heart failure we will add losartan 12.5 mg daily. Advised formal pulmonary consultation for dyspnea and COPD. Refer to drawing kiln operator in [place]. I advised smoking cessation explained adverse effects to his cardiac, pulmonary, vascular systems. We did also review his peripheral vascular disease and he may be a candidate for future PCI. We will monitor him symptomatically and reevaluate in 1 month. Maintain blood pressure diary.Please excuse any errors in grammar or translation related to this dictation. Voice recognition software was utilized to prepare this document. [facility] [employer] DO Work Phone: 10-23-2010 History of Present illness Narrative CHIEF COMPLAINT:DyspneaHISTORY OF PRESENT ILLNESS:The patient is a 55-year-old male, with past medical history significant for coronary arterydisease, status post non-ST elevation NV, status post bare metal stent, left circumflex, October 23, 2010, Inferior wall ST elevation myocardial infarction/drug-eluting stent left circumflex November 02, 2020, ischemic cardiomyopathy,hypertension, dyslipidemia, active tobacco abuse, COPD, who presents for follow up cardiovascular care.Patient required urgent coronary PCI after ST elevation myocardial infarction on November 02, 2020. Since then he has had increased dyspnea. He complains of fatigue. Denies chest pain, palpitations, nausea, vomiting. Occasional dizziness change in position. Denies near syncope, suyapa syncope, edema. He has some right lower extremity pain usually at rest. He was told he had severe right common femoral artery stenosis at time of cardiac catheterization.November 03, 2020 echo: EF 45-50%.April 14, 2020 labs: Total cholesterol 128, LDL 38, triglycerides 54.PAST MEDICAL HISTORY: As above, plus left eye blind vision loss,COPD, anxiety, gout, hypothyroid.PAST SURGICAL HISTORY:Left total hip replacement October 13OCIAL HISTORY: The patient is a smoker 1 to 1.5 packs of cigarettesper day for approximately 30 years, drinks 4 to 5 beers a day.FAMILY HISTORY: Brother with brain cancer, brother deceasedwith lung cancer, brother with pancreatic cancer. Motherhistory of lung cancer.REVIEW OF SYSTEMS: Have been reviewed and are negative.Noncontributory as previous mentioned x12 systems.I personally reviewed EKG August 25, 2020: Normal sinus rhythm, rightward axis, possible age-indeterminate anterior wall infarct. No significant change compared to previous EKG March 24, 2019.ASSESSMENT:Coronary artery disease, NSTEMI, BMS LCfx 10/23/10, STEMI inferolateral SERA LCfx 10/23/20Ischemic cardiomyopathy EF 45-50%Chronic systolic congestive heart failure near card association class II-IIIPeripheral vascular disease-severe right common femoral artery stenosisHypertension.Dyslipidemia .Active tobacco abuse.Chronic obstructive pulmonary disease.GoutHypothyroidRECOMMENDA TIONS:Patient has had increased dyspnea. There is a possibility Brilinta may increase his dyspnea. After he is complete his current Brilinta prescription will start Plavix 600 mg 12 hours after his last dose of Brilinta, then Plavix 75 mg daily. For management of heart failure we will add losartan 12.5 mg daily. Advised formal pulmonary consultation for dyspnea and COPD. Refer to drawing kiln operator in [place]. I advised smoking cessation explained adverse effects to his cardiac, pulmonary, vascular systems. We did also review his peripheral vascular disease and he may be a candidate for future PCI. We will monitor him symptomatically and reevaluate in 1 month. Maintain blood pressure diary.Please excuse any errors in grammar or translation related to this dictation. Voice recognition software was utilized to prepare this document. [facility] Work Phone: Chief complaint Narrative - Reported LEMUEL RHODES is being seen for a cardiovascular evaluation. [place] [id number] DO Work Phone: Chief complaint Narrative - Reported LEMUEL RHODES is being seen for a cardiovascular evaluation. [place] [address] DO Work Phone: Evaluation + Plan note Future Appointments Appointment Date:09/06/2023 01:15:00 PM Scheduled Provider:Ignacio Quevedo PA-C Location:[facility] Appointment Type:Cardiology Follow Up ([facility]) Future Scheduled TestsB-Type Natriuretic Peptide 07/27/23Basic Metabolic Panel 07/27/23 [facility] Evaluation + Plan note Future Appointments Appointment Date:08/27/2023 12:00:00 PM Scheduled Provider: Location:[facility].ULTRASOUND Appointment Type:US Duplex Procedures ([facility]) Appointment Date:08/27/2023 01:00:00 PM Scheduled Provider: Location:[facility].CARDIO Appointment Type:CV Echo ([facility]) Appointment Date:09/06/2023 01:15:00 PM Scheduled Provider:Ignacio Quevedo PA-C Location:[facility] Appointment Type:Cardiology Follow Up ([facility]) Future Scheduled TestsB-Type Natriuretic Peptide 07/27/23Basic Metabolic Panel 07/27/23Echo Transthoracic Complete 08/27/23US LE Venous Duplex Left 08/27/23 [facility] Evaluation + Plan note Future Appointments Appointment Date:03/06/2024 02:15:00 PM Scheduled Provider:Ignacio Quevedo PA-C Location:[facility] Appointment Type:Cardiology Follow Up ([facility]) Future Scheduled TestsB-Type Natriuretic Peptide 07/27/23Basic Metabolic Panel 07/27/23 [facility] History of Present illness Narrative Subjective: CHIEF COMPLAINT:Preoperative for stratification for left total hip replacement with Dr. Awais NapierHISTORY OF PRESENT ILLNESS:The patient is a 55-year-old male, with past medical history significant for coronary arterydisease, status post non-ST elevation NV, status post bare metal stent, left circumflex, October 23, 2010, hypertension, dyslipidemia, active tobacco abuse, COPD, who presents for follow up cardiovascular care.Patient denies chest pain, dyspnea, palpitations, nausea, vomiting, dizziness, fever, chill, bleeding. Patient smokes 1.5 pack cigarettes per day.April 14, 2020 labs: Total cholesterol 128, LDL 38, triglycerides 54.Cardiac catheter April 26, 2017 revealed 60% proximal left circumflexstenosis, patent left circumflex stents, otherwise mild diffuse coronaryartery disease, ejection fraction 50%.March 24, 2019 Exercise nuclear stress test was normal achieving 7 metsPAST MEDICAL HISTORY: As above, plus left eye blind vision loss,COPD, anxiety, gout, hypothyroid.PAST SURGICAL HISTORY: None.SOCIAL HISTORY: The patient is a smoker 1 to 1.5 packs of cigarettesper day for approximately 30 years, drinks 4 to 5 beers a day.FAMILY HISTORY: Brother with brain cancer, brother deceasedwith lung cancer, brother with pancreatic cancer. Motherhistory of lung cancer.REVIEW OF SYSTEMS: Have been reviewed and are negative.Noncontributory as previous mentioned x12 systems.I personally reviewed EKG August 25, 2020: Normal sinus rhythm, rightward axis, possible age-indeterminate anterior wall infarct. No significant change compared to previous EKG March 24, 2019.ASSESSMENT:Preoperative for stratification for left total hip replacement with Dr. Awais NapierCoronary artery disease, NSTEMI, BMS left circumflex, October 23, 2010Hypertension.Dyslipidemia.Act phi tobacco abuse.Chronic obstructive pulmonary disease.GoutHypothyroidRECOMMENDA TIONS:Patient is acceptable risk to proceed with orthopedic surgery from a cardiac standpoint. Patient is stable to hold aspirin 1 week prior to surgery no symptoms of angina. No symptomatic arrhythmia. No evidence of heart failure. EKG stable compared to previous EKG. No ischemia on stress test March 24, 2019 achieving 7 METS. I advised smoking cessation explained the adverse effects with cardiac, pulmonary, vascular systems. Lipid profile is within acceptable limits. Patient is tentatively scheduled to follow-up with myself in April 2021. At that time he is scheduled for exercise nuclear stress test, CMP, lipid profile [facility] [address] DO Work Phone: Hospital course Narrative No data available for this section [facility] Discharge instructions No data available for this section [facility] Progress note No data available for this section [facility] Summary Purpose Family History No Family History Records FoundUnknown Family Member Name Dates Details : Brother Status:Active Family history of emphysema: Father(V17.6, Z82.5) Status:Active Family history of liver canc er: Brother(V16.0, Z80.0) Status:Active Family history of lung cance r: Brother, Mother(V16.1, Z80.1) Status:Active Family history of malignant neoplasm of brain: Brother(V16.8, Z80.8) Status:Active Family history of pancreatic cancer: Brother(V16.0, Z80.0) Status:Active Unknown Family Member Name Dates Details : Brother Status:Active Family history of emphysema: Father(V17.6, Z82.5) Status:Active Family history of liver canc er: Brother(V16.0, Z80.0) Status:Active Family history of lung cance r: Brother, Mother(V16.1, Z80.1) Status:Active Family history of malignant neoplasm of brain: Brother(V16.8, Z80.8) Status:Active Family history of pancreatic cancer: Brother(V16.0, Z80.0) Status:Active Unknown Family Member Name Dates Details : Brother Status:Active Family history of emphysema: Father(V17.6, Z82.5) Status:Active Family history of liver canc er: Brother(V16.0, Z80.0) Status:Active Family history of lung cance r: Brother, Mother(V16.1, Z80.1) Status:Active Family history of malignant neoplasm of brain: Brother(V16.8, Z80.8) Status:Active Family history of pancreatic cancer: Brother(V16.0, Z80.0) Status:Active Unknown Family Member Name Dates Details Family history of pancreatic cancer: Brother(V16.0, Z80.0) Status:Active Family history of malignant neoplasm of brain: Brother(V16.8, Z80.8) Status:Active Family history of lung cance r: Brother, Mother(V16.1, Z80.1) Status:Active Family history of liver canc er: Brother(V16.0, Z80.0) Status:Active Family history of emphysema: Father(V17.6, Z82.5) Status:Active : Brother Status:Active Unknown Family Member Name Dates Details Family history of lung cance r: Brother, Mother(V16.1, Z80.1) Status:Active Family history of pancreatic cancer: Brother(V16.0, Z80.0) Status:Active Family history of malignant neoplasm of brain: Brother(V16.8, Z80.8) Status:Active Family history of liver canc er: Brother(V16.0, Z80.0) Status:Active Family history of emphysema: Father(V17.6, Z82.5) Status:Active : Brother Status:Active Unknown Family Member Name Dates Details : Brother Status:Active Family history of emphysema: Father(V17.6, Z82.5) Status:Active Family history of liver canc er: Brother(V16.0, Z80.0) Status:Active Family history of lung cance r: Brother, Mother(V16.1, Z80.1) Status:Active Family history of malignant neoplasm of brain: Brother(V16.8, Z80.8) Status:Active Family history of pancreatic cancer: Brother(V16.0, Z80.0) Status:Active Unknown Family Member Name Dates Details Family history of pancreatic cancer: Brother(V16.0, Z80.0) Status:Active Family history of malignant neoplasm of brain: Brother(V16.8, Z80.8) Status:Active Family history of lung cance r: Brother, Mother(V16.1, Z80.1) Status:Active Family history of liver canc er: Brother(V16.0, Z80.0) Status:Active Family history of emphysema: Father(V17.6, Z82.5) Status:Active : Brother Status:Active Unknown Family Member Name Dates Details Family history of pancreatic cancer: Brother(V16.0, Z80.0) Status:Active Family history of malignant neoplasm of brain: Brother(V16.8, Z80.8) Status:Active Family history of lung cance r: Brother, Mother(V16.1, Z80.1) Status:Active Family history of liver canc er: Brother(V16.0, Z80.0) Status:Active Family history of emphysema: Father(V17.6, Z82.5) Status:Active : Brother Status:Active Advance Directives No Advanced Directives Records FoundNo Advanced Directives Records FoundNo Advanced Directives Records FoundNo Advanced Directives Records FoundNo Advanced Directives Records FoundNo Advanced Directives Records FoundNo Advanced Directives Records FoundNo Advanced Directives Records FoundNo Advanced Directives Records Found Chief Complaint LEMUEL RHODES is being seen for a 1 month follow-up of.LEMUEL RHODES is being seen for a 1 month follow-up of.LEMUEL RHODES is being seen for a 1 month follow-up of. LEMUEL RHODES is being seen for a 1 month follow-up of. Additional Source Comments (unrecognized sect ion and content) No Status Records FoundNo Status Records FoundNo Status Records FoundNo Status Records FoundNo Status Records FoundNo Status Records FoundNo Status Records FoundNo Status Records FoundNo Status Records Found INFORMATION SOURCE (unrecogn ized section and content) DATE CREATED AUTHOR 01/20/2018 [facility] DATE CREATED AUTHOR AUTHOR'S ORGANIZ ATION 03/27/2019 [facility] DATE CREATED AUTHOR AUTHOR'S ORGANIZ ATION 05/10/2021 [facility] [facility] DATE CREATED AUTHOR AUTHOR'S ORGANIZ ATION 12/13/2021 [facility] DATE CREATED AUTHOR AUTHOR'S ORGANIZ ATION 04/25/2022 [facility] ical Center DATE CREATED AUTHOR AUTHOR'S ORGANIZ ATION 04/26/2022 [facility] DATE CREATED AUTHOR AUTHOR'S ORGANIZ ATION 05/21/2023 [facility] DATE CREATED AUTHOR AUTHOR'S ORGANIZ ATION 09/28/2023 [facility] DATE CREATED AUTHOR AUTHOR'S ORGANIZ ATION 07/22/2024 [facility] Patient Care team informatio n (unrecognized section and content) Personnel Name: GORAN FOFANA DO Address: Address: [address] [place] [address]- Personnel Name: GORAN FOFANA DO Address: Address: [address] [place] [address]- Personnel Name: GORAN FOFANA DO Address: Address: [address] [place] [address]- Personnel Name: GORAN FOFANA DO Address: Address: [address] [place] [address]- FOR RECORDS PERTAINING TO PATIENTS WHO ARE OR HAVE BEEN ENROLLED IN A CHEMICAL DEPENDENCY/SUBSTANCEABUSE PROGRAM, SOME INFORMATION MAY BE OMITTED. This clinical summary was aggregated from multiple sources. Caution should be exercised in using it in the provision of clinical care. This summary normalizes information from multiple sources, and as a consequence, information in this document may materially change the coding, format and clinical context of patient data. In addition, data may be omitted in some cases. CLINICAL DECISIONS SHOULD BE BASED ON THE PRIMARY CLINICAL RECORDS. [facility]. provides no warranty or guarantee of the accuracy or completeness of information in this document.
[2024-07-26] MEDS: METHYLPREDNISOLONE SOD SUCC PF 125 MG/2 ML VIAL IVP (16:42)
[2024-07-26 16:53] LABS: Mean Corpuscular HGB Conc 34.8 g/dL (29.9-35.2); Mean Corpuscular Hemoglobin 35.4 pg (25.9-34.0); Mean Corpuscular Volume 101.8 fL (80.0-94.0); Mean Platelet Volume 9.3 fL (9.5-13.5); Platelet Count 225 10^3/uL (150-450); Red Blood Count 4.52 10^6/uL (4.70-6.10); Red Cell Distribution Width 11.8 % (11.0-15.0); White Blood Count 10.1 10^3/uL (4.0-11.0)
[2024-07-26 17:13] LABS: Alanine Aminotransferase 26 U/L (16-63); Albumin Globulin Ratio 0.7; Alkaline Phosphatase 154 U/L (46-116); Anion Gap 17.5; Aspartate Amino Transferase 31 U/L (15-37); BUN Creatinine Ratio 3.2; Bilirubin Total 0.4 mg/dL (0.2-1.0); Carbon Dioxide 27.3 mmol/L (21.0-32.0); Chloride 97 mmol/L (98-107); Estimated GFR (African America >60 (>=60 mL/min/1.73m^2); Estimated GFR (Non-African Ame >60 (>=60 mL/min/1.73m^2); Globulin 4.3 g/dL; Glucose 152 mg/dL (74-106); Sodium 139 mmol/L (136-145); Total Protein 7.3 g/dL (6.4-8.2)
[2024-07-26 17:15] LABS: Segmented Neut Absolute Manual 8.68 10^3/uL (1.4-6.5)
[2024-07-26 17:21] LABS: Potassium 2.8 mmol/L (3.5-5.1)
--- NOTE | 2024-07-26 17:27 | ECG_ITS ---
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 Measurements Intervals [place] Rate: 96 P: 42 SC: 158 QRS: 65 QRSD: 90 T: 60 QT: 368 QTc: 422 Interpretive Statements 1100 Sinus rhythm 3114 Cannot rule out anterior myocardial infarction, age undetermined 9150 abnormal ECG Compared to ECG 02/25/2019 08:59:58 Myocardial infarct finding now present Right-axis deviation no longer present Electronically Signed On 07-27-2024 8:49:03 EDT by NESTOR BOOB M.D.
[2024-07-26] MEDS: DIPHENHYDRAMINE HCL 50 MG/ML VIAL 25 MG IVP (18:08)
[2024-07-26] MEDS: POTASSIUM BICARBONATE/CIT 25 MEQ TABLET EFF 50 MEQ PO (18:08)
[2024-07-26] MEDS: FAMOTIDINE/PF 20 MG/2 ML VIAL IV (18:08)
--- NOTE | 2024-07-26 18:27 | ED_ITS ---
HPI - Allergic Reaction General Chief complaint: Allergic Reaction Stated complaint: allergic reaction Time Seen by Provider: 07/26/24 16:13 Source: patient Mode of arrival: walk-in Limitations: no limitations History of Present Illness HPI narrative: The patient is a 59-year-old male who have a history of alcohol abuse is coming to the ER with a rash that developed all over his body in the last 24 hours the patient recently was started on clindamycin for treatment of his left leg cellulitis, his left leg cellulitis is improving there is no redness right now as it used to when he was diagnosed with this almost 3 days ago The patient have no fever no chills that he have this rash that is itchy all over the body, Related Data Home Medications ?Medication ?Instructions ?Recorded ?Confirmed albuterol sulfate 90 mcg/actuation inhalation 07/26/24 aerosol inhaler atorvastatin 80 mg tablet 80 mg PO DAILY 07/26/2407/13 levothyroxine 75 mcg tablet 75 mcg PO DAILY 07/26/24 0 07/26/24 Previous Rx's ?Medication ?Instructions ?Recorded amoxicillin 875 mg-potassium 1 tab PO BID #10 tabs clavulanate 125 mg tablet diphenhydramine HCl 25 mg tablet 25 mg PO Q8H PRN laura rgic reaction 07/26/24 (Benadryl Allergy) #10 tabs famotidine 20 mg tablet (Pepcid) 20 mg PO BID #10 tabs 07/26/24 potassium bicarbonate-citric acid 20 meq PO DAILY 3 da ys #3 ea 07/26/24 20 mEq effervescent tablet (Effer-K) prednisone 20 mg tablet 40 mg (2 x 20 mg) PO DAILY 5 days 07/26/24 #10 tabs Allergies Allergy/AdvReac Type Severity Reaction Status Date / Time moxifloxacin (From Avelox) AdvReac Intermediate Unknown Verified 07/26/24 16:08 Review of Systems ROS Status of ROS 10 or more systems reviewed and unremark able except as noted in history and below PFSH PFSH Social History Little interest or pleasure in doing things: not at all Feeling down, depressed, or hopeless: not at all Exam Narrative Exam Narrative: Nurses notes and vital signs reviewed and patient is not hypoxic. General: Well-appearing and in no apparent distress. Skin: Maculopapular rash that is scattered all over the upper and lower extremity as well as the abdomen and mildly in the face No rash. Head: Normocephalic, atraumatic. Neck: Supple, non-tender. Eye: Pupils are equal, round and EOMI. No scleral icterus. Ears, Nose, Mouth, and Throat: TM are clear, no nasal mucosal hypertrophy. Oral mucosa is moist, no posterior oropharynx erythema, uvula is mid-line Cardiovascular: Regular Rate and Rhythm without murmur, gallop or rub. Respiratory: No accessory muscle use or respiratory distress. Lungs are clear to auscultation, no wheezing, rales or rhonchi Chest Wall: no tenderness Back: No midline thoracic or lumbar vertebral tenderness. No CVA tenderness Musculoskeletal: The patient have the swelling mostly of the left lower extremity that looks chronic with chronic skin changes, no open wound the patient have a good vascular supply to the anterior tibial pulse in both feet but the left leg shows a significant discoloration when the patient is lowering his feet. GI: Abdomen is soft, non-distended. Normal bowel sounds. No masses appreciated. No tenderness to palpation. No rebound, guarding, or rigidity noted. Neurological: A&O x4. No cranial nerve dysfunction observed. No truncal memo charles. Moves all extremities. Sensation intact. Psychiatric: Cooperative and interactive. Normal mood and affect. Constitutional Vital Signs, click to edit/add: Last Vital Signs Temp 98.8 F 07/26/24 16:10 Pulse 113 H 07/26/24 16:10 Resp 18 07/26/24 16:10 BP 140/86 07/26/24 16:10 Pulse Ox 97 07/26/24 16:10 O2 Del Method Room Air 07/26/24 16:10 Course Vital Signs Vital signs: Vital Signs Temperature 98.8 F 07/26/24 16:10 Pulse Rate 113 H 07/26/24 16:10 Respiratory Rate 18 07/26/24 16:10 Blood Pressure 140/86 07/26/24 16:10 Pulse Oximetry 97 07/26/24 16:10 Oxygen Delivery Method Room Air 07/26/24 16:10 Temperature 98.8 F 07/26/24 16:10 Pulse Rate 113 H 07/26/24 16:10 Respiratory Rate 18 07/26/24 16:10 Blood Pressure 140/86 07/26/24 16:10 Pulse Oximetry 97 07/26/24 16:10 Oxygen Delivery Method Room Air 07/26/24 16:10 MDM - Allergic Reaction MDM Narrative Medical decision making narrative: The patient CBC and chemistry shows hypokalemia which is a chronic problem for the patient He had a EKG in the ER was showing sinus rhythm with a heart rate of 96 there was no hyperkalemic changes The patient right now his presentation is mostly secondary to allergic reaction mostly secondary to clindamycin His was worried about the fact that he had moxifloxacin allergy and she is worried about the Lasix causing him allergy and from my clinical exam the patient does not to be on Lasix at the moment The patient was also provided potassium p.o. in the ER in addition to 3 days of potassium daily 20 mEq The patient to avoid taking the Benadryl with alcohol and he was discharged home with prednisone Benadryl and Pepcid His clindamycin switched to Augmentin and he had no allergy to that antibiotic before and he is to monitor his left leg for any new symptoms The patient is to follow up with primary care physician in next 2-3 days or to return to the emergency department should any of the signs or symptoms worsen or new symptoms develop. The patient agrees with the following Diagnosis and Treatment plan and the patient will be discharged home. Lab Data Labs: Lab Results 07/26/24 Range/Units 16:31 WBC 10.1 (4.0-11.0) 10^3/uL RBC 4.52 L (4.70-6.10) 10^6/uL Hgb 16.0 (14.0-18.0) g/dL Hct 46.0 (42.0-54.0) % MCV 101.8 H (80.0-94.0) fL MCH 35.4 H (25.9-34.0) pg MCHC 34.8 (29.9-35.2) g/dL RDW 11.8 (11.0-15.0) % Plt Count 225 (150-450) 10^3/uL MPV 9.3 L (9.5-13.5) fL Seg Neuts % (Manual) 86.0 H (43.0-75.0) Lymphocytes % (Manual) 6.0 L (20.5-60.0) % Monocytes % (Manual) 2.0 (1.7-12.0) % Eosinophils % (Manual) 6.0 (0.9-7.0) % Basophils % (Manual) 0.0 L (0.2-2.0) % Neutrophils # (Manual) 8.68 H (1.4-6.5) 10^3/uL Lymphocytes # (Manual) 0.60 L (1.20-3.80) 10^3/uL Monocytes # (Manual) 0.20 L (0.30-0.80) 10^3/uL Eosinophils # (Manual) 0.60 (0.00-0.70) 10^3/uL Basophils # (Manual) 0.00 (0.00-0.10) 10^3/uL Sodium 139 (136-145) mmol/L Potassium 2.8 L* (3.5-5.1) mmol/L Chloride 97 L (98-107) mmol/L Carbon Dioxide 27.3 (21.0-32.0) mmol/L Anion Gap 17.5 BUN 2.0 L (7.0-18.0) mg/dL Creatinine 0.62 L (0.70-1.30) mg/dL Est GFR ( Amer) >60 (>=60 mL/min/1.73m^2) Est GFR (Non-Af Amer) >60 (>=60 mL/min/1.73m^2) BUN/Creatinine Ratio 3.2 Glucose 152 H (74-106) mg/dL Calcium 9.0 (8.5-10.1) mg/dL Total Bilirubin 0.4 (0.2-1.0) mg/dL AST 31 (15-37) U/L ALT 26 (16-63) U/L Alkaline Phosphatase 154 H (46-116) U/L Total Protein 7.3 (6.4-8.2) g/dL Albumin 3.0 L (3.4-5.0) g/dL Globulin 4.3 g/dL Albumin/Globulin Ratio 0.7 Discharge Plan Discharge Chief Complaint: Allergic Reaction Clinical Impression: Allergic drug rash, Hypokalemia, Cellulitis Patient Disposition: Home, Self-Care Time of Disposition Decision: 17:36 Condition: Good Prescriptions / Home Meds: New amoxicillin-pot clavulanate 875-125 mg tablet 1 tab PO BID Qty: 10 0RF famotidine [Pepcid] 20 mg tablet 20 mg PO BID Qty: 10 0RF prednisone 20 mg tablet 40 mg PO DAILY 5 Days Qty: 10 0RF diphenhydramine HCl [Benadryl Allergy] 25 mg tablet 25 mg PO Q8H PRN (Reason: allergic reaction) Qty: 10 0RF Effer-K 20 mEq tablet, effervescent 20 meq PO DAILY 3 Days Qty: 3 0RF Discontinued clindamycin HCl 300 mg capsule 300 mg PO Q8H furosemide 40 mg tablet 40 mg PO DAILY No Action atorvastatin 80 mg tablet 80 mg PO DAILY albuterol sulfate 90 mcg/actuation HFA aerosol inhaler INHALATION levothyroxine 75 mcg tablet 75 mcg PO DAILY Print Language: Citizen Of [place] Instructions: Hypokalemia (ED), Acute Rash (ED) Referrals: PROSPER FOFANA [Primary Care Provider, Family Practice] - 1 week Discharge Date/Time: 07/26/24 18:20
== END 2024-07-26 18:20 | disposition home or self-care (01) ==
PROVIDERS: Emergency Provider Emergency Medicine; PCP Family Medicine
DX: L27.0 Generalized skin eruption due to drugs and medicaments taken internally (principal); T36.8X5A Adverse effect of other systemic antibiotics, initial encounter; E87.6 Hypokalemia; L03.116 Cellulitis of left lower limb
CPT/HCPCS: 36415; 80053; 85007; 85027; 93005; 96374; 96375; 99284; J1200; J2919; J3490

== ENCOUNTER 2024-07-28 15:19 | Outpatient (OUT) | payer MEDICARE, SELFPAY ==
[2024-07-28 16:11] LABS: Ammonia 18 umol/L (11-32)
[2024-07-28 16:14] LABS: Basophils Percent Auto 0.2 % (0.2-2.0); Eosinophils Absolute Auto 0.4 10^3/uL (0.0-0.7); Hematocrit 44.9 % (42.0-54.0); Hemoglobin 15.7 g/dL (14.0-18.0); Immature Granulocytes Abs Auto 0.03 10^3/uL (0.00-0.03); Immature Granulocytes Pct Auto 0.3 % (0.0-0.5); Lymphocytes Absolute Auto 0.5 10^3/uL (1.2-3.8); Lymphocytes Percent Auto 5.4 % (20.5-60.0); Mean Corpuscular Hemoglobin 35.9 pg (25.9-34.0); Mean Corpuscular Volume 102.7 fL (80.0-94.0); Mean Platelet Volume 9.3 fL (9.5-13.5); Monocytes Absolute Auto 0.6 10^3/uL (0.3-0.8); Monocytes Percent Auto 5.9 % (1.7-12.0); Neutrophils Absolute Auto 8.2 10^3/uL (1.4-6.5); Neutrophils Percent Auto 84.2 % (43.0-75.0); Platelet Count 220 10^3/uL (150-450); Red Blood Count 4.37 10^6/uL (4.70-6.10); Red Cell Distribution Width 11.8 % (11.0-15.0); White Blood Count 9.8 10^3/uL (4.0-11.0)
== END 2024-07-28 15:20 | disposition home or self-care (01) ==
LOC: LAB 15:22
PROVIDERS: PCP Family Medicine; Visit Provider Family Medicine
DX: R60.0 Localized edema (principal); K74.60 Unspecified cirrhosis of liver; L03.119 Cellulitis of unspecified part of limb; I25.10 Atherosclerotic heart disease of native coronary artery without angina pectoris; Z98.62 Peripheral vascular angioplasty status
CPT/HCPCS: 36415; 82140; 85025